=== PATIENT | male | born 1935 | race Caucasian/White ===

== ENCOUNTER 2023-12-30 11:32 | Inpatient (IN) ==
[2023-12-30 12:49] LABS: Basophils # (auto) 0.09 K/uL (0.00-0.20); Basophils % (auto) 1.1 %; Eosinophils # (auto) 0.07 K/uL (0.00-0.50); Eosinophils % (auto) 0.9 %; Hematocrit (blood only) 28.8 % (42.0-52.0); Hemoglobin 9.7 g/dl (14.0-18.0); Immature Granulocytes # (auto) 0.05 K/uL (0.01-0.20); Immature Granulocytes % (auto) 0.6 %; Lymphocytes % (auto) 13.4 %; Mean Corpuscular Hemoglobin 30.4 pg (25.0-34.0); Mean Corpuscular Hgb Conc 33.7 g/dL (32.0-36.0); Mean Corpuscular Volume 90.3 fL (80.0-100.0); Mean Platelet Volume 11.1 fL (9.4-12.4); Monocytes # (auto) 0.56 K/uL (0.11-0.59); Monocytes % (auto) 6.8 %; Neutrophils # (auto) 6.32 K/uL (1.40-6.50); Neutrophils % (auto) 77.2 %; Platelet Count 285 K/uL (130-400); RDW Coefficient of Variation 14.3 % (11.5-14.5); RDW Standard Deviation 47.2 fL (36.4-46.3); Red Blood Count 3.19 M/uL (4.70-6.10); White Blood Count 8.19 K/ul (4.8-10.8)
[2023-12-30 13:04] LABS: Alanine Aminotransferase 22 U/L (7-52); Albumin Globulin Ratio 1.7 (0.9-2); Albumin Level 3.8 gm/dl (3.4-5.0); Alkaline Phosphatase 89 U/L (34-104); Anion Gap 7 (3-11); Aspartate Aminotransferase 24 U/L (13-39); BUN Creatinine Ratio 17.4 (10-20); Bilirubin,Total 0.7 mg/dl (0.2-1.0); Blood Urea Nitrogen 30 mg/dl (6-23); Calcium 9.7 mg/dl (8.6-10.3); Carbon Dioxide 30 mmol/L (21-32); Chloride 98 mmol/L (98-107); Est GFR (Non-African American) 34.5 ml/min; Globulin 2.3 gm/dl (2.5-4.0); Glucose 375 mg/dl (70-99(Fasting)); Potassium 4.2 mmol/L (3.5-5.1); Sodium 135 mmol/L (136-145); Total Protein 6.1 gm/dl (6.0-8.3)
--- NOTE | 2023-12-30 13:05 | XRay Report ---
XR chest 1V not portable HISTORY: Chest pain, nonspecific COMPARISON: Chest and abdominal series 07/23/2018. FINDINGS: There are low lung volumes. No pneumothorax. No pleural effusions. No focal lung consolidat ions to suggest a pneumonia. No evidence for pulmonary edema. Old, healed right-sided rib fractures. Degenerative changes within the shoulders. A cardiac valve prosthesis is noted. Calcified right hilar lymph nodes and a right lower lobe calcified granuloma. Suture material noted within the right hilum . IMPRESSION: No acute process. ACT 112: Negative or not required by law. Electronically signed by: Fede Pablo M.D. 12/30/2023 1:03 PM
[2023-12-30 13:08] LABS: Partial Thromboplastin Ratio 0.9; Partial Thromboplastin Time 24 Seconds (21-31); Prothrombin Time 11.2 Seconds (9.0-12.0)
[2023-12-30 13:11] LABS: Troponin I High Sensitivity 127.5 pg/ml (0-20)
--- NOTE | 2023-12-30 14:04 | Emergency Department Note ---
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 Patient is with his who states that over the past few weeks he has had recurrent nosebleeds up to 20+ over the past few days. Recently had a valve replacement as well as multiple stents in May is on Eliquis and this. Overall he has been doing well until recently where he has been feeling extremely fatigued, somewhat short of breath especially with exertion. Notes no chest pain. No current orthopnea but is weak with exertion ROS: See above HPI for pertinent positives & negatives. A total of [10] systems reviewed and were otherwise negative. PAST MEDICAL HISTORY: [See Below] PAST SURGICAL HISTORY: [See Below] FAMILY HISTORY: [See Below] SOCIAL HISTORY: [See Below] HOME MEDICATIONS: [See Below] ALLERGIES: [See Below] VITALS: See Below PHYSICAL EXAMINATION: General: resting comfortably in no acute distress, pale Head: Normocephalic and atraumatic Eyes: Normal inspection, extraocular muscles intact Ear, nose, throat: Normal external exam Neck: Normal range of motion Respiratory: lungs clear to auscultation bilaterally Cardiovascular: Regular rate/rhythm, no murmur GI: soft, nontender, no guarding or rebound Extremities: nontender, moves all extremities Neuro: The patient awake and alert, appropriately conversive, no focal deficits, symmetric faces Skin: Warm, dry, and intact MEDICAL DECISION MAKING: This is presenting for concerns of low hemoglobin. Patient blood work was done at triage as well as EKG and chest x-ray -Chest Xray independently interpreted by me showing no pneumothorax, focal opacity, or pleural effusions. -ECG independently interpreted by me with [normal sinus rhythm], rate of 76, left axis deviation, [normal [place]], [normal QRS], [normal QTc], [no ST segment elevations consistent with STEMI criteria], T wave inversions in lead II and aVL -Patient blood was reviewed showing hemoglobin of 9.7. His troponin is significant elevated at 127. He continues to deny current chest pain -Chest Xray independently interpreted by me showing no pneumothorax, focal opacity, or pleural effusions. Differential diagnosis: [] ER treatment provided: See below Diagnostics interpreted by me: ECG: [none] Cardiac Monitoring: An order was placed for continuous cardiac monitoring. The monitor shows a rate of [] with [] rhythm. 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 Status post appendectomy Status post prostatectomy Family History Mother Dementia Father Heart disease Social History Smoking Status: Former smoker Second Hand Exposure: No; Do You Dip or Chew Tobacco: No; Hx Alcohol Use: No Hx Substance Use: No Preferred Language: Montenegrin Communication Ability: Effective Director Of Education And Training Required: No Beliefs That Will Affect Care: None marital status: Current Living Situation: Spouse current occupational status: retired Feels Safe at Home: Yes Assistive Devices: Glasses Allergies Allergies Allergy/AdvReac Type Severity Reaction Status Date / Time No Known Allergies Allergy Verified 12/30/23 14:11 Home Meds Home Medications Medication Instructions Recorded Confirmed amlodipine 10 mg tablet 10 mg PO DAILY 07/23/18 12/30/23 cholecalciferol (vitamin D3) 25 1,000 unit PO DAILY 07/23/18 12/30/23 mcg (1,000 unit) capsule (Vitamin D3) atorvastatin 40 mg tablet 40 mg PO QPM 12/30/23 12/30/23 clopidogrel 75 mg tablet 75 mg PO QAM 12/30/23 12/30/23 dulaglutide 4.5 mg/0.5 mL 4.5 mg subcut WK 12/30/23 12/30/23 subcutaneous pen injector (Trulicity) hydrochlorothiazide 25 mg tablet 25 mg PO DAILY 12/30/23 12/30/23 insulin glargine 100 unit/mL (3 20 unit subcut DAILY 12/30/23 12/30/23 mL) subcutaneous pen (Lantus Solostar U-100 Insulin) levothyroxine 88 mcg tablet 88 mcg PO DAILYBB 12/30/23 12/30/23 (Synthroid) Previous Rx's Medication Instructions Recorded mupirocin 2 % topical ointment 1 applic topical BID #15 grams 12/31/23 oxymetazoline 0.05 % nasal mist 2 spray intranasal BID 3 days #15 12/31/23 (Afrin (oxymetazoline)) mL sodium chloride 0.65 % nasal spray 1 spray intranasal QID PRN dry 12/31/23 aerosol (Saline Nasal) nasal passages #44 mL Results & Data (ED) Vital Signs Vital Signs - 24 hr 12/30/23 11:57 12/30/23 13:24 12/30/23 13:29 Temperature 36.9 C Temperature Source Temporal Artery Scan Pulse Rate 81 66 Pulse Rate [Apical] 63 Pulse Rate from SpO2 Sensor 62 Respiratory Rate 18 28 H 30 H Respiratory Effort / Characteristics Non-Labored Spontaneous Short of Breath SOB on Exertion Respiratory Depth Normal Normal Respiratory Pattern Regular Rapid/Shallow Blood Pressure 104/63 Blood Pressure [Right Arm] 152/75 H Blood Pressure Mean 76 Blood Pressure Mean [Right Arm] 100 Blood Pressure Position Sitting Blood Pressure Position [Right Arm] Sitting Pulse Oximetry 100 95 100 Oxygen Delivery Method Room Air Room Air Oxygen Flow Rate Sepsis Recent Fever Within 48 Hours No Sepsis New/Unexplained Change in Mental Status N/A Sepsis Action Taken by Nursing No Action Required 12/30/23 13:29 12/30/23 13:30 12/30/23 13:41 Temperature Temperature Source Pulse Rate 63 60 Pulse Rate [Apical] Pulse Rate from SpO2 Sensor 61 Respiratory Rate 30 H 23 Respiratory Effort / Characteristics Respiratory Depth Respiratory Pattern Blood Pressure Blood Pressure [Right Arm] Blood Pressure Mean Blood Pressure Mean [Right Arm] Blood Pressure Position Blood Pressure Position [Right Arm] Pulse Oximetry 100 100 Oxygen Delivery Method Room Air Nasal Cannula Oxygen Flow Rate 2 Sepsis Recent Fever Within 48 Hours Sepsis New/Unexplained Change in Mental Status Sepsis Action Taken by Nursing 12/30/23 13:41 12/30/23 14:00 12/30/23 14:30 Temperature Temperature Source Pulse Rate 64 60 61 Pulse Rate [Apical] Pulse Rate from SpO2 Sensor 60 60 Respiratory Rate 21 24 Respiratory Effort / Characteristics Respiratory Depth Respiratory Pattern Blood Pressure Blood Pressure [Right Arm] Blood Pressure Mean Blood Pressure Mean [Right Arm] Blood Pressure Position Blood Pressure Position [Right Arm] Pulse Oximetry 100 100 Oxygen Delivery Method Oxygen Flow Rate Sepsis Recent Fever Within 48 Hours Sepsis New/Unexplained Change in Mental Status Sepsis Action Taken by Nursing 12/30/23 15:00 12/30/23 15:30 12/30/23 16:00 Temperature Temperature Source Pulse Rate 76 67 73 Pulse Rate [Apical] Pulse Rate from SpO2 Sensor 72 63 Respiratory Rate 20 14 19 Respiratory Effort / Characteristics Respiratory Depth Respiratory Pattern Blood Pressure Blood Pressure [Right Arm] Blood Pressure Mean Blood Pressure Mean [Right Arm] Blood Pressure Position Blood Pressure Position [Right Arm] Pulse Oximetry 100 97 Oxygen Delivery Method Room Air Oxygen Flow Rate Sepsis Recent Fever Within 48 Hours Sepsis New/Unexplained Change in Mental Status Sepsis Action Taken by Nursing Laboratory Data 12/31/23 02:07 12/31/23 02:07 Lab Results 12/30/23 12/30/23 12/30/23 Range/Units 12:17 14:06 14:13 WBC 8.19 (4.8-10.8) K/ul RBC 3.19 L (4.70-6.10) M/uL Hgb 9.7 L (14.0-18.0) g/dl Hct 28.8 L (42.0-52.0) % MCV 90.3 (80.0-100.0) fL MCH 30.4 (25.0-34.0) pg MCHC 33.7 (32.0-36.0) g/dL RDW Std Deviation 47.2 H (36.4-46.3) fL RDW Coeff of Luis 14.3 (11.5-14.5) % Plt Count 285 (130-400) K/uL MPV 11.1 (9.4-12.4) fL Immature Gran % (Auto) 0.6 % Neut % (Auto) 77.2 % Lymph % (Auto) 13.4 % [place] % (Auto) 6.8 % Eos % (Auto) 0.9 % Baso % (Auto) 1.1 % Neut # (Auto) 6.32 (1.40-6.50) K/uL Lymph # (Auto) 1.10 L (1.20-3.40) K/uL [place] # (Auto) 0.56 (0.11-0.59) K/uL Eos # (Auto) 0.07 (0.00-0.50) K/uL Baso # (Auto) 0.09 (0.00-0.20) K/uL Immature Gran # (Auto) 0.05 (0.01-0.20) K/uL PT 11.2 (9.0-12.0) Seconds INR 1.0 (0.9-1.1) APTT 24 (21-31) Seconds PTT Ratio 0.9 Sodium 135 L (136-145) mmol/L Potassium 4.2 (3.5-5.1) mmol/L Chloride 98 (98-107) mmol/L Carbon Dioxide 30 (21-32) mmol/L Anion Gap 7 (3-11) BUN 30 H (6-23) mg/dl Creatinine 1.72 H (0.6-1.4) mg/dl Est Cr Clr Drug Dosing Not Reportable Est GFR ( Amer) 40.0 ml/min Est GFR (Non-Af Amer) 34.5 ml/min BUN/Creatinine Ratio 17.4 (10-20) Glucose 375 H* (70-99(Fasting)) mg/dl POC Glucose 432 H* (70-99) mg/dl Calcium 9.7 (8.6-10.3) mg/dl Total Bilirubin 0.7 (0.2-1.0) mg/dl AST 24 (13-39) U/L ALT 22 (7-52) U/L Alkaline Phosphatase 89 (34-104) U/L Troponin I High Sens 127.5 H* 101.3 H* D (0-20) pg/ml B-Natriuretic Peptide 120 H (0-100) pg/ml Total Protein 6.1 (6.0-8.3) gm/dl Albumin 3.8 (3.4-5.0) gm/dl Globulin 2.3 L (2.5-4.0) gm/dl Albumin/Globulin Ratio 1.7 (0.9-2) Urine Color Urine Appearance (Clear) Urine pH (4.5-7.5) Ur Specific [place] (1.000-1.030) Urine Protein (Negative) Urine Glucose (UA) (Negative) Urine Ketones (Negative) Urine Blood (Negative) Urine Nitrite (Negative) Urine Bilirubin (Negative) Urine Urobilinogen (Negative) Ur Leukocyte Esterase (Negative) Urine WBC (Auto) (0-5) /hpf Urine RBC (Auto) (0-2) /hpf U Hyaline Cast (Auto) (0-2) /lpf U Epithel Cells (Auto) (0-2) /hpf Urine Bacteria (Auto) (None Seen) 12/30/23 12/30/23 Range/Units 14:14 15:14 WBC (4.8-10.8) K/ul RBC (4.70-6.10) M/uL Hgb (14.0-18.0) g/dl Hct (42.0-52.0) % MCV (80.0-100.0) fL MCH (25.0-34.0) pg MCHC (32.0-36.0) g/dL RDW Std Deviation (36.4-46.3) fL RDW Coeff of Luis (11.5-14.5) % Plt Count (130-400) K/uL MPV (9.4-12.4) fL Immature Gran % (Auto) % Neut % (Auto) % Lymph % (Auto) % [place] % (Auto) % Eos % (Auto) % Baso % (Auto) % Neut # (Auto) (1.40-6.50) K/uL Lymph # (Auto) (1.20-3.40) K/uL [place] # (Auto) (0.11-0.59) K/uL Eos # (Auto) (0.00-0.50) K/uL Baso # (Auto) (0.00-0.20) K/uL Immature Gran # (Auto) (0.01-0.20) K/uL PT (9.0-12.0) Seconds INR (0.9-1.1) APTT (21-31) Seconds PTT Ratio Sodium (136-145) mmol/L Potassium (3.5-5.1) mmol/L Chloride (98-107) mmol/L Carbon Dioxide (21-32) mmol/L Anion Gap (3-11) BUN (6-23) mg/dl Creatinine (0.6-1.4) mg/dl Est Cr Clr Drug Dosing Est GFR ( Amer) ml/min Est GFR (Non-Af Amer) ml/min BUN/Creatinine Ratio (10-20) Glucose (70-99(Fasting)) mg/dl POC Glucose 433 H* (70-99) mg/dl Calcium (8.6-10.3) mg/dl Total Bilirubin (0.2-1.0) mg/dl AST (13-39) U/L ALT (7-52) U/L Alkaline Phosphatase (34-104) U/L Troponin I High Sens (0-20) pg/ml B-Natriuretic Peptide (0-100) pg/ml Total Protein (6.0-8.3) gm/dl Albumin (3.4-5.0) gm/dl Globulin (2.5-4.0) gm/dl Albumin/Globulin Ratio (0.9-2) Urine Color Yellow Urine Appearance Cloudy A (Clear) Urine pH 7.0 (4.5-7.5) Ur Specific [place] 1.019 (1.000-1.030) Urine Protein Trace H (Negative) Urine Glucose (UA) 3+ H (Negative) Urine Ketones Negative (Negative) Urine Blood Negative (Negative) Urine Nitrite Negative (Negative) Urine Bilirubin Negative (Negative) Urine Urobilinogen Negative (Negative) Ur Leukocyte Esterase Negative (Negative) Urine WBC (Auto) 0-5 (0-5) /hpf Urine RBC (Auto) 0-2 (0-2) /hpf U Hyaline Cast (Auto) 3-5 H (0-2) /lpf U Epithel Cells (Auto) >20 H (0-2) /hpf Urine Bacteria (Auto) None Seen (None Seen) Administered Medications Discontinued Medications Amlodipine Besylate (Amlodipine Besylate 5 Mg Tab) 10 mg PO DAILY KENYATTA Stop: 01/30/24 08:59 Last Admin: 12/31/23 09:13 Dose: 10 mg Documented By: MES Atorvastatin Calcium (Atorvastatin 40 Mg Tab) 40 mg PO QPM KENYATTA Stop: 01/29/24 20:59 Last Admin: 12/30/23 23:21 Dose: 40 mg Documented By: CR Clopidogrel Bisulfate (Clopidogrel Bisulfate 75 Mg Tab) 75 mg PO QAM KENYATTA Stop: 01/30/24 11:14 Last Admin: 12/31/23 11:16 Dose: 75 mg Documented By: LIZ Hydrochlorothiazide (Hydrochlorothiazide 25 Mg Tab) 25 mg PO DAILY KENYATTA Stop: 01/30/24 08:59 Last Admin: 12/31/23 09:13 Dose: 25 mg Documented By: LIZ Insulin Aspart (Insulin Aspart Per Unit Charge) 5 units SC NOW STA Stop: 12/30/23 18:27 Last Admin: 12/30/23 18:33 Dose: 5 units Documented By: ANTHONY Co-signed By: KIMBERLEY Insulin Aspart (Insulin Aspart Per Unit Charge) 0 units SC ACHS [facility] Stop: 01/29/24 18:38 Last Admin: 12/31/23 13:23 Dose: 7 units Documented By: LIZ Co-signed By: ANTHONY Admin: 12/31/23 09:47 Dose: 1 units Documented By: LIZ Co-signed By: LOLLY Admin: 12/30/23 21:53 Dose: 1 units Documented By: GIANA Co-signed By: ANTHONY Admin: 12/30/23 19:50 Dose: 11 units Documented By: GIANA Co-signed By: ANTHONY Insulin Glargine (Lantus Per Unit Charge) 20 units SQ DAILY KENYATTA Stop: 01/30/24 08:59 Last Admin: 12/31/23 09:48 Dose: 20 units Documented By: LIZ Co-signed By: LOLLY Levothyroxine Sodium (Levothyroxine Sodium 88 Mcg Tablet) 88 mcg PO DAILYBB [facility] Stop: 01/30/24 06:29 Last Admin: 12/31/23 06:26 Dose: 88 mcg Documented By: GIANA Melatonin (Melatonin 3 Mg Tab) 3 mg PO HS PRN PRN Reason: Sleep Stop: 01/29/24 23:05 Last Admin: 12/31/23 03:04 Dose: 3 mg Documented By: GIANA Oxymetazoline HCl (Oxymetazoline 0.05% 30 Ml Btl) 1 sprays NA NOW ONE Stop: 12/30/23 15:32 Last Admin: 12/30/23 16:12 Dose: 1 sprays Documented By: ANTHONY Potassium Chloride (Potassium Chloride Crtab 20 Meq Tabcr) 40 meq PO NOW STA Stop: 12/31/23 08:05 Last Admin: 12/31/23 09:13 Dose: 40 meq Documented By: LIZ Vitamin D (Cholecalciferol 25 Mcg (1000 Units) Tab) 25 mcg PO DAILY KENYATTA Stop: 01/30/24 08:59 Last Admin: 12/31/23 09:14 Dose: 25 mcg Documented By: LIZ Imaging Data Radiologist's Impression: Chest X-Ray 12/30/23 11:59 XR chest 1V not portable HISTORY: Chest pain, nonspecific COMPARISON: Chest and abdominal series 07/23/2018. FINDINGS: There are low lung volumes. No pneumothorax. No pleural effusions. No focal lung consolidations to suggest a pneumonia. No evidence for pulmonary edema. Old, healed right-sided rib fractures. Degenerative changes within the shoulders. A cardiac valve prosthesis is noted. Calcified right hilar lymph nodes and a right lower lobe calcified granuloma. Suture material noted within the right hilum. IMPRESSION: No acute process. ACT 112: Negative or not required by law. Electronically signed by: Fede Pablo M.D. 12/30/2023 1:03 PM Discharge Plan Visit Data Chief Complaint: Nose Bleed (Major) Stated Complaint: TROUBLE BREATHING,NOSE BLEEDS ED Provider: Agustin Horn Patient Disposition: Admitted As Inpatient Condition: Fair Discharge Instructions Interventions: ED Discharge Assessment Last Done: 12/30/23 17:41
--- NOTE | 2023-12-30 14:19 | History & Physical Report ---
Date of Service December 30, 2023 Assessment & Plan (1) Anemia: (2) Hypertension: (3) Hypothyroidism: (4) Diabetes mellitus type 2, controlled: (5) Dyslipidemia: (6) CKD (chronic kidney disease), stage III: (7) Cerebrovascular disease: (8) S/P TAVR (transcatheter aortic valve replacement): Plan: 88 yo M with multiple complex comorbidities listed below, epistaxis on anticoagulation and new elevated troponin and dyspnea on exertion Anemia, acute blood loss due to epistaxis - Pt is hgb of 9 today, previously on 12/02/23 hgb was 13.6 - Will hold eliquis and plavix - last took these meds this morning. Discussed with cards - Blood consented personally - if in case needs this overnight. Currently no need for transfusion. - ENT consult for epistasix, had appt but was at end of January - appreciate recs - Afrin prn S/p TAVR - #23mm Lepe Ned S3 Ultra valve), 06/16/[address] Rojas at [facility] [place], New LBBB at that time -- again seen on EKG today. - At that time he did wear a Zio AT without Salomon arrhythmias or pauses. However, atrial fibrillation was seen. Started on Eliquis but AV patience blocking agents avoided due to slow resting heart rates. Evaluated by Dr. Rios on 08/11/2023--no pacemaker was recommended at that time and patient status remained stable in September follow-up. - Last echo from 08/2023 showing EF normal, TAVR gradients stable, mild paravalvular aortic valve prosthesis regurg present - Follows with [facility] as outpatient Dr. Hoff - Outpatient cardiology referred pt here for further eval due to nose bleeds and abdnomal EKG today concerning with new T-wave inversions in leads 1 and aVL. - Trop 127 --> 101.3, trend x 1 more set - Also noted is pt appears dyspneic on exertion. Sats of mid 90s on RA after walking to the bathroom. We can maintain oxygen with humidification as needed for exertional dyspnea. - Cardiology consulted - appreciate recs Complex CAD - Prox-midRCA with heavily calcified 95% stenosis status post rotational atherectomy+ PCI with x3 overlapping DELORES from mid RCA to ostium-- (2.0ajg44ds, 2.1dbj95cn and 3.0mrh57zq Synergy DELORES), per pre-TAVR cath 05/22/2023 - Holding plavix - Continue statin therapy Peripheral arterial disease, 80% RFA stenosis per cardiac catheterization 05/22/2023 - S/p shock wave lithotripsy of the left common iliac and left external iliac artery, 06/16/2023 - Cont statin therapy Paroxysmal atrial fibrillation, diagnosed 06/28/2023 per Zio monitor. - [id number] score of 4, on reduced dose Eliquis due to age and renal function - Holding eliquis as above Hypertension Dyslipidemia - Home regimen:amlodipine, HCTZ DM II - ISS with accuchecks achs - Last A1C 8.4 on 12/02/23 -- will recheck with am labs since off Metformin mid November with uptrending glucoses. Was taken off metformin due to weight loss - consider ISS at home if not a candidate for metformin upon discharge. Hold Trulicity for now, last dose was Thursday. - Hyperglycemia with glucose of 375 upon admission , will trend Hypothyroidism - Cont levothyroxine CKD stage III - Baseline Cr 1.4-1.5, upon admission is 1.72, BUN 30 - May likely be due to demand ischemia, volume depletion as above DVT ppx: teds, scds Lines: 1 PIV FEN/GI: Allow DM heart healthy diet for now CODE: DNR/DNI Dispo: From home, likely to remain in the hospital x 1-2 days A total of 85 minutes were spent with greater than 50% of that time face to face with the patient, personally reviewing all current laboratories, imaging studies, past medication reconciliation, outpatient chart review, and discussion with specialists to collaborate care for the patient with attending. Please see attending documentation for corrections and/or additions. History of Present Illness Chief Complaint: nose bleed Primary Care Provider: Andrea Winters MD This is a n 88 yo M with PMHX of CAD, s/p TAVR in 06/16/23, PAD, paroxysmal atrial fibrillation on eliquis, HTN, HLD, who presents from cardiology office this morning after being found to have EKG changes in Lead 1 and AVL with T wave changes. Pt has been having nose bleeds since December 12, very heavy at times and can last for about 30 minutes. He hasn't missed any of his anticoagulation medications - is on both plavix and eliquis (reduced dose for renal implications), and last dose of these meds was this morning. His last nose bleed was earlier today which require him holding and pinching his nose for abot 30 minutes again. No bleeding since arrival to the ER. PT denies any chest pain, heaviness or complaints. His at bedside is worried, and provides contradictory information compared to the patient, who may tend to downplay his symptoms. She states he has been having shortness of breath on exertion, needing to sit down and catch his breath after attempting to get dressed in the last 3 days, as well as looking "wobbly" with ambulation. Prior to this he has no issues with needing ambulatory device or issues with fatigue on exertional activites. Denies any acute falls or injuries to self. notes glucose has been elevated over the past week or so. He was recently taken off metformin completely due to weight loss around middle of November 2023, and instead was kept on Trulicity weekly(Tuesdays) and lantus 20 U QAM. His appetite has not changed. concerned about upward trending glucose and does not have appt until the end of next Thursday scheduled. Allergies Allergy/AdvReac Type Severity Reaction Status Date / Time No Known Allergies Allergy Verified 12/30/23 14:11 Home Medications Medication Instructions Recorded Confirmed Type amlodipine 10 mg tablet 10 mg PO DAILY 07/23/18 12/30/23 History cholecalciferol (vitamin D3) 25 1,000 unit PO DAILY 07/23/18 12/30/23 History mcg (1,000 unit) capsule (Vitamin D3) apixaban 2.5 mg tablet (Eliquis) 2.5 mg PO BID 12/30/23 12/30/23 History atorvastatin 40 mg tablet 40 mg PO QPM 12/30/23 12/30/23 History clopidogrel 75 mg tablet 75 mg PO QAM 12/30/23 12/30/23 History dulaglutide 4.5 mg/0.5 mL 4.5 mg subcut WK 12/30/23 12/30/23 History subcutaneous pen injector (Trulicity) hydrochlorothiazide 25 mg tablet 25 mg PO DAILY 12/30/23 12/30/23 History insulin glargine 100 unit/mL (3 20 unit subcut DAILY 12/30/23 12/30/23 History mL) subcutaneous pen (Lantus Solostar U-100 Insulin) levothyroxine 88 mcg tablet 88 mcg PO DAILYBB 12/30/23 12/30/23 History (Synthroid) Past Med/Surg History Medical History Diabetes mellitus type 2 with complications Acute kidney injury Cerebrovascular disease history TIA CKD (chronic kidney disease), stage III Vitamin D deficiency Dyslipidemia Diverticulosis History of colonic polyps History of prostate cancer Hypertension Hypothyroidism Diabetes mellitus type 2, controlled Stage III chronic kidney disease Diabetes Surgical History 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 Status post appendectomy Status post prostatectomy Family History Mother Dementia Father Heart disease Social History Smoking Status: Former smoker Second Hand Exposure: No; Do You Dip or Chew Tobacco: No; Hx Alcohol Use: No Hx Substance Use: No Preferred Language: Swedish Communication Ability: Effective Commercial Food Instructor Required: No Beliefs That Will Affect Care: Lutheran Lutheran Beliefs: Orthodoxy marital status: Current Living Situation: Spouse current occupational status: retired Feels Safe at Home: Yes Assistive Devices: Glasses Review of Systems Review of Systems: Constitutional: No fever, sweats or chills Eyes: No diplopia, no worsening or blurred vision ENT: normal hearing, no trouble swallowing, + epistaxis as per HPI Respiratory: No cough, sputum, +dyspnea on exertion as per HPI Cardiovascular: No chest pain, tightness or palpitations Abdomen: No pain, nausea, vomiting, diarrhea or constipation Musculoskeletal: No joint pain, calf pain, swelling Neurologic: No weakness, numbness/tingling, or balance problems Psychiatric: No anxiety or depression Skin: No rash or itch Physical Exam Physical Exam: General: awake, alert, no apparent distress, elderly white male, BMI of 23.3 Head: Normocephalic, atraumatic ENT: PERRL, EOMI, no pharyngeal exudate, mucous membranes moist Chest: Clear to auscultation, on room air, no adventitious breath sounds Cardiac: Regular rate and rhythm, no murmur, no JVD, normal peripheral pulses, good capillary refill Abdominal: NABS x 4 quadrants, soft, nondistended, nontender to palpation, no rebound or guarding Extremities: Normal inspection, no peripheral edema or erythema, calfs nontender to palpation Psych: Normal mood and affect Neuro: AAO x 3, strength intact bilaterally and rated 5/5, no motor deficits, speech is clear, no peripheral sensory deficits Results & Data Results & Data Vital Signs (Past 12 Hours) Vital Signs Temp Pulse Pulse Resp BP BP Pulse Ox 12/30/23 13:41 64 12/30/23 13:41 12/30/23 13:29 63 30 H 100 12/30/23 13:29 63 30 H 152/75 H 100 12/30/23 11:57 36.9 C 81 18 104/63 100 O2 Del Method O2 Flow Rate 12/30/23 13:41 12/30/23 13:41 Nasal Cannula 2 12/30/23 13:29 Room Air 12/30/23 13:29 Room Air 12/30/23 11:57 Room Air Laboratory Results 12/30/23 12/30/23 12/30/23 14:14 14:13 12:17 WBC 8.19 RBC 3.19 L Hgb 9.7 L Hct 28.8 L MCV 90.3 MCH 30.4 MCHC 33.7 RDW Std Deviation 47.2 H RDW Coeff of Luis 14.3 Plt Count 285 MPV 11.1 Immature Gran % (Auto) 0.6 Neut % (Auto) 77.2 Lymph % (Auto) 13.4 [place] % (Auto) 6.8 Eos % (Auto) 0.9 Baso % (Auto) 1.1 Neut # (Auto) 6.32 Lymph # (Auto) 1.10 L [place] # (Auto) 0.56 Eos # (Auto) 0.07 Baso # (Auto) 0.09 Immature Gran # (Auto) 0.05 PT 11.2 INR 1.0 APTT 24 PTT Ratio 0.9 Sodium 135 L Potassium 4.2 Chloride 98 Carbon Dioxide 30 Anion Gap 7 BUN 30 H Creatinine 1.72 H Est Cr Clr Drug Dosing Not Reportable Est GFR ( Amer) 40.0 Est GFR (Non-Af Amer) 34.5 BUN/Creatinine Ratio 17.4 Glucose 375 H* POC Glucose 433 H* 432 H* Calcium 9.7 Total Bilirubin 0.7 AST 24 ALT 22 Alkaline Phosphatase 89 Troponin I High Sens 127.5 H* Total Protein 6.1 Albumin 3.8 Globulin 2.3 L Albumin/Globulin Ratio 1.7 Diagnostic Findings Chest X-Ray 12/30/23 11:59 XR chest 1V not portable HISTORY: Chest pain, nonspecific COMPARISON: Chest and abdominal series 07/23/2018. FINDINGS: There are low lung volumes. No pneumothorax. No pleural effusions. No focal lung consolidations to suggest a pneumonia. No evidence for pulmonary edema. Old, healed right-sided rib fractures. Degenerative changes within the shoulders. A cardiac valve prosthesis is noted. Calcified right hilar lymph nodes and a right lower lobe calcified granuloma. Suture material noted within the right hilum. IMPRESSION: No acute process. ACT 112: Negative or not required by law. Electronically signed by: Fede Pablo M.D. 12/30/2023 1:03 PM ECG Additional Comments: Reviewed showing AVL and Lead [address] wave inversions Code Status & VTE Plan Code Status DNR/DNI - discussed with pt at bedside Supervising Physician Co-Signing Physician Notes Pt seen and examined by me, care coordinated w/ Kannan Elizondo PA-C, pls refer to her note above for further detail. Pt is a n 88 yo M w. h/o CAD, s/p TAVR in 06/16/23, PAD, paroxysmal atrial fibrillation on eliquis, HTN, HLD, who presents from cardiology office this morning after being found to have EKG changes in Lead 1 and AVL with T wave changes and reported episodes of significant epistaxis. Pt is on plavix and eliquis (reduced dose for renal implications), and last dose of these meds was this morning. Pt denies any chest pain, or shortness of breath but per he has been short of breath for several days, and very weak. Pt is currently laying in bed in NAD, he is awake but does not answer many questions, mostly his provides the history. Lungs are clear to auscultation, heart sounds regular, +soft syst. murmur, abdomen soft, nontender, no LE edema, pt is moving extremities. In the ER his Hgb is found low at 9.7, Troponin elevated at 127. Discussed with cardiology and holding eliquis and plavix for now. ENT was also consulted as per bleeding only occurs from left nostril. Will cont. to closely monitor. Monitor H&H. MD Philip
--- NOTE | 2023-12-30 15:36 | Cardiology Consultation ---
Date of Consultation December 30, 2023 Assessment & Plan (1) Epistaxis: (2) Anemia: (3) Elevated troponin I level: (4) CAD (coronary artery disease), rampart coronary artery: (5) S/P right coronary artery (RCA) stent placement: (6) S/P TAVR (transcatheter aortic valve replacement): (7) CKD (chronic kidney disease), stage III: Plan 88-year-old male referred to the ER due to recent epistaxis and anemia in setting of chronic anticoagulation/antiplatelet therapy. Mildly elevated high- sensitivity troponin without signs/symptoms of acute coronary syndrome. ECG with left bundle branch block since TAVR 05/2023. Current ECG demonstrating incomplete left bundle branch block. Elevated troponin most likely due to demand ischemia/blood loss anemia. Recent complex PCI performed May 2023. Approximately 7 months since intervention. Recommend hold clopidogrel and Eliquis at least temporarily. ENT evaluation pending at this time. With history of complex CAD/PVD/complex intervention 05/2023, recommend resume single antiplatelet therapy with clopidogrel when deemed safe by otolaryngology. Continue other cardiovascular medications including atorvastatin and amlodipine. Cautiously continue hydrochlorothiazide in the setting of CKD/mild hyponatremia. History of Present Illness Reason for Consultation: ECG changes, elevated troponin Requesting Physician: Marce Elizondo PA-C Attending Physician: Dr. Germain Palacios History of Present Illness 88-year-old male referred to the emergency department today from the cardiology clinic due to epistaxis and concerns regarding anemia. Patient is a poor historian due to underlying dementia. Most history provided by his at bedside. She reports nearly 20 episodes of epistaxis beginning 12/15/2023. Episodes lasting up to 30 minutes. He is chronically anticoagulated with low- dose Eliquis as well as treated with antiplatelet therapy, clopidogrel. No bleeding over the past 48 hours. Patient denies chest pain or unusual shortness of breath. reports dyspnea over the past 5-7 days. No orthopnea, PND, or lower extremity edema. Denies palpitations, lightheadedness, dizziness, syncope, or near syncope. Complex cardiac history copied from the [facility] medical record: 1. Severe aortic stenosis s/p TAVR (# 23 mm Lepe Ned S3 Ultra valve), 06/16/[address] Rojas at [facility] [place] 1. New LBBB 2. Complex CAD, Prox-midRCA with heavily calcified 95% stenosis status post rotational atherectomy+ PCI with x3 overlapping DELORES from mid RCA to ostium-- (2.5vby03hn, 2.3prv22cs and 3.1imp61bz Synergy DELORES), per pre-TAVR cath 05/22/2023. 3. Peripheral arterial disease, 80% RFA stenosis per cardiac catheterization 05/22/2023 - S/p shock wave lithotripsy of the left common iliac and left external iliac artery, 06/16/2023 4. Paroxysmal atrial fibrillation, diagnosed 06/28/2023 per Zio monitor. - [id number] score of 4, on reduced dose Eliquis due to age and renal function 5. Hypertension 6. Dyslipidemia 7. Type 2 Diabetes 8. Hypothyroidism Allergies Allergy/AdvReac Type Severity Reaction Status Date / Time No Known Allergies Allergy Verified 12/30/23 14:11 Home Medications Medication Instructions Recorded Confirmed Type amlodipine 10 mg tablet 10 mg PO DAILY 07/23/18 12/30/23 History cholecalciferol (vitamin D3) 25 1,000 unit PO DAILY 07/23/18 12/30/23 History mcg (1,000 unit) capsule (Vitamin D3) apixaban 2.5 mg tablet (Eliquis) 2.5 mg PO BID 12/30/23 12/30/23 History atorvastatin 40 mg tablet 40 mg PO QPM 12/30/23 12/30/23 History clopidogrel 75 mg tablet 75 mg PO QAM 12/30/23 12/30/23 History dulaglutide 4.5 mg/0.5 mL 4.5 mg subcut WK 12/30/23 12/30/23 History subcutaneous pen injector (Trulicity) hydrochlorothiazide 25 mg tablet 25 mg PO DAILY 12/30/23 12/30/23 History insulin glargine 100 unit/mL (3 20 unit subcut DAILY 12/30/23 12/30/23 History mL) subcutaneous pen (Lantus Solostar U-100 Insulin) levothyroxine 88 mcg tablet 88 mcg PO DAILYBB 12/30/23 12/30/23 History (Synthroid) Patient History Medical History Diabetes mellitus type 2 with complications Acute kidney injury Cerebrovascular disease history TIA CKD (chronic kidney disease), stage III Vitamin D deficiency Dyslipidemia Diverticulosis History of colonic polyps History of prostate cancer Hypertension Hypothyroidism Diabetes mellitus type 2, controlled Stage III chronic kidney disease Diabetes Surgical History 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 Status post appendectomy Status post prostatectomy Family History Mother Dementia Father Heart disease Social History Smoking Status: Former smoker Second Hand Exposure: No; Do You Dip or Chew Tobacco: No; Tobacco Cessation Education Requested by Patient: No Hx Alcohol Use: No Hx Substance Use: No Preferred Language: Azerbaijani Communication Ability: Effective Skirt Maker Required: No Beliefs That Will Affect Care: None marital status: Current Living Situation: Spouse current occupational status: retired Other Information That Helps Us Care for You: No Feels Safe at Home: Yes Safety Concerns: Feels Safe At This Time Assistive Devices: Glasses Review of Systems Review of Systems: All systems reviewed & are unremarkable except as noted in Subjective Physical Exam Constitutional: well developed and well nourished; no acute distress Respiratory: no respiratory distress, no labored breathing and no retractions Auscultation: lungs clear to auscultation bilaterally; no crackles, no rales, no rhonchi and no wheezes Cardiovascular: Rate/Rhythm: regular rate and regular rhythm Heart Sounds: normal S1, normal S2 and + murmur (2/6 systolic ejection murmur) Vessels: no JVD and no carotid bruit Gastrointestinal (Abdomen): Inspection/Auscultation: abdomen normal to inspection; abdomen not distended Percussion/Palpation: abdomen soft; abdomen nontender, no guarding and abdomen not rigid Neurologic: CN's II-XI intact bilaterally and moves all extremities Results & Data Vital Signs (Past 12 Hours) Vital Signs Temp Pulse Pulse Resp BP BP Pulse Ox 12/30/23 13:41 64 12/30/23 13:41 12/30/23 13:29 63 30 H 100 12/30/23 13:29 63 30 H 152/75 H 100 12/30/23 11:57 36.9 C 81 18 104/63 100 O2 Del Method O2 Flow Rate 12/30/23 13:41 12/30/23 13:41 Nasal Cannula 2 12/30/23 13:29 Room Air 12/30/23 13:29 Room Air 12/30/23 11:57 Room Air Laboratory Results Cardiac Enzymes 12/30/23 12/30/23 Range/Units 12:17 14:06 AST 24 (13-39) U/L Troponin I High Sens 127.5 H* 101.3 H* D (0-20) pg/ml B-Natriuretic Peptide 120 H (0-100) pg/ml Coagulation 12/30/23 12/30/23 Range/Units 12:17 14:06 PT 11.2 (9.0-12.0) Seconds APTT 24 (21-31) Seconds B-Natriuretic Peptide 120 H (0-100) pg/ml CBC 12/30/23 Range/Units 12:17 WBC 8.19 (4.8-10.8) K/ul RBC 3.19 L (4.70-6.10) M/uL Hgb 9.7 L (14.0-18.0) g/dl Hct 28.8 L (42.0-52.0) % Plt Count 285 (130-400) K/uL Neut # (Auto) 6.32 (1.40-6.50) K/uL Lymph # (Auto) 1.10 L (1.20-3.40) K/uL [place] # (Auto) 0.56 (0.11-0.59) K/uL Eos # (Auto) 0.07 (0.00-0.50) K/uL Baso # (Auto) 0.09 (0.00-0.20) K/uL Comprehensive Metabolic Panel 12/30/23 Range/Units 12:17 Sodium 135 L (136-145) mmol/L Potassium 4.2 (3.5-5.1) mmol/L Chloride 98 (98-107) mmol/L Carbon Dioxide 30 (21-32) mmol/L BUN 30 H (6-23) mg/dl Creatinine 1.72 H (0.6-1.4) mg/dl Glucose 375 H* (70-99(Fasting)) mg/dl Calcium 9.7 (8.6-10.3) mg/dl AST 24 (13-39) U/L ALT 22 (7-52) U/L Alkaline Phosphatase 89 (34-104) U/L Total Protein 6.1 (6.0-8.3) gm/dl Albumin 3.8 (3.4-5.0) gm/dl Intake and Output 12/30/23 12/30/23 12/30/23 06:59 14:59 22:59 Other: Weight 65.4 kg Weight Measurement Method Built in [facility] Patient Weight 12/31/23 06:59 Weight 65.4 kg
[2023-12-30 15:53] LABS: Appearance Urine Cloudy (Clear); Bacteria Urine Automated None Seen (None Seen); Bilirubin Urine Negative (Negative); Blood Urine Negative (Negative); Color Urine Yellow; Epithelial Cell Urine Auto >20 /hpf (0-2); Glucose Urine UA 3+ (Negative); Ketones Urine Negative (Negative); Leukocyte Esterase Urine Negative (Negative); Nitrite Urine Negative (Negative); Protein Urine Trace (Negative); RBC Urine Automated 0-2 /hpf (0-2); Specific Gravity Urine 1.019 (1.000-1.030); Urobilinogen Urine Negative (Negative); WBC Urine Automated 0-5 /hpf (0-5)
[2023-12-30] MEDS: OXYMETAZOLINE 0.05% 30 ML BTL ONE (16:12)
--- NOTE | 2023-12-30 16:16 | ENT Consultation ---
Date of Consultation December 30, 2023 Assessment & Plan (1) Epistaxis: Plan 88yM with a h/o PCI and TAVR on eliquis, plavix admitted with elevated troponin in the setting of recurrent L epistaxis. A prominent vessel of the left anterior septum was cauterized today with good hemostasis. -Mupirocin ointment BID x2 weeks -Afrin TID x3 days, then prn epistaxis -Saline spray QID -In event of further epistaxis, apply afrin and direct pressure x10-15 minutes. If this fails to resolve epistaxis, call our office or seek emergency care -F/u 2 weeks in my office for recheck - [phone] History of Present Illness History of Present Illness 88yM h/o PCI, TAVR on eliquis, plavix with recurrent L epistaxis x2-3 weeks. Patient and note multiple episodes daily lasting 30 minutes. Typically resolve with pressure. No prior nasal surgery or trauma. No previous issues with epistaxis. No current nasal regimen. No previous intervention for epistaxis. Most recent epistaxis this morning Presented to the ED today with weakness and concern for anemia. Hb 9.7, troponin elevated. Allergies Allergy/AdvReac Type Severity Reaction Status Date / Time No Known Allergies Allergy Verified 12/30/23 14:11 Home Medications Medication Instructions Recorded Confirmed Type amlodipine 10 mg tablet 10 mg PO DAILY 07/23/18 12/30/23 History cholecalciferol (vitamin D3) 25 1,000 unit PO DAILY 07/23/18 12/30/23 History mcg (1,000 unit) capsule (Vitamin D3) apixaban 2.5 mg tablet (Eliquis) 2.5 mg PO BID 12/30/23 12/30/23 History atorvastatin 40 mg tablet 40 mg PO QPM 12/30/23 12/30/23 History clopidogrel 75 mg tablet 75 mg PO QAM 12/30/23 12/30/23 History dulaglutide 4.5 mg/0.5 mL 4.5 mg subcut WK 12/30/23 12/30/23 History subcutaneous pen injector (Trulicity) hydrochlorothiazide 25 mg tablet 25 mg PO DAILY 12/30/23 12/30/23 History insulin glargine 100 unit/mL (3 20 unit subcut DAILY 12/30/23 12/30/23 History mL) subcutaneous pen (Lantus Solostar U-100 Insulin) levothyroxine 88 mcg tablet 88 mcg PO DAILYBB 12/30/23 12/30/23 History (Synthroid) Patient History Medical History Diabetes mellitus type 2 with complications Acute kidney injury Cerebrovascular disease history TIA CKD (chronic kidney disease), stage III Vitamin D deficiency Dyslipidemia Diverticulosis History of colonic polyps History of prostate cancer Hypertension Hypothyroidism Diabetes mellitus type 2, controlled Stage III chronic kidney disease Diabetes Surgical History 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 Status post appendectomy Status post prostatectomy Family History Mother Dementia Father Heart disease Social History Smoking Status: Former smoker Second Hand Exposure: No; Do You Dip or Chew Tobacco: No; Hx Alcohol Use: No Hx Substance Use: No Preferred Language: Cymraes Communication Ability: Effective Engineering Manager Electronics Required: No Beliefs That Will Affect Care: Congregational Congregational Beliefs: Worship marital status: Current Living Situation: Spouse current occupational status: retired Feels Safe at Home: Yes Assistive Devices: Glasses Review of Systems Review of Systems: A 10 point review of systems is negative except as noted above Physical Exam Physical Exam: General: No acute distress, nonlabored respirations Face: normal facial motion Eyes: Extraocular motion is intact. Normal sclera and conjunctiva Ears: AD: EAC clear. TM intact without retraction or effusion. Monomeric segment anteroinferiorly : EAC with cerumen, unable to visualize TM Nose: no external deformity, nares patent. No rhinorrhea or epistaxis. Anterior rhinoscopy with mild septal deviation to the left. Prominent hemangioma over left anterior septum, cauterized with silver nitrate with good hemostasis Oral cavity: clear, edentulous Oropharynx: clear, tonsils absent Neck: soft, no masses or lymphadenopathy Results & Data Vital Signs (Past 12 Hours) Vital Signs Temp Pulse Pulse Resp BP BP Pulse Ox 12/30/23 15:30 67 14 97 12/30/23 15:00 76 20 100 12/30/23 14:30 61 24 100 12/30/23 14:00 60 21 100 12/30/23 13:41 64 12/30/23 13:41 12/30/23 13:30 60 23 100 12/30/23 13:29 63 30 H 100 12/30/23 13:29 63 30 H 152/75 H 100 12/30/23 13:24 66 28 H 95 12/30/23 11:57 36.9 C 81 18 104/63 100 O2 Del Method O2 Flow Rate 12/30/23 15:30 Room Air 12/30/23 15:00 12/30/23 14:30 12/30/23 14:00 12/30/23 13:41 12/30/23 13:41 Nasal Cannula 2 12/30/23 13:30 12/30/23 13:29 Room Air 12/30/23 13:29 Room Air 12/30/23 13:24 12/30/23 11:57 Room Air PG Care Time/CCT Total # of Minutes Spent Total Time Spent with Patient: Total time spent is greater than 50% in coordination of care (as documented) at patient's floor/unit and/or counseling patient: Coding Level of Care Code 44626 OFFICE CONSULT LVL /40M (25 - SIGNIFICANT, SEPARATELY IDENTIFIABLE ) Diagnoses Epistaxis R04.0 CPT Codes Control of Nosebleed - 18605 ([id number])
[2023-12-30] MEDS ORDERED: GLUCOSE 40% GEL 15 GM TUBE PO PRN ×2 (18:23→18:39)
[2023-12-30] MEDS ORDERED: GLUCAGON FOR INJ 1 MG VIAL SQ PRN ×2 (18:23→18:39)
[2023-12-30] MEDS ORDERED: DEXTROSE 50% 50 ML SYRINGE IV PRN ×3 (18:23→18:39)
[2023-12-30] MEDS ORDERED: CARBOHYDRATES FOR HYPOGLYCEMIA PO PRN ×3 (18:23→18:39)
[2023-12-30] MEDS ORDERED: GLUCOSE 10 TAB/TUBE PO PRN ×2 (18:23→18:39)
[2023-12-30] MEDS: INSULIN ASPART PER UNIT CHARGE SC STA (18:33)
[2023-12-30] MEDS ORDERED: ONDANSETRON INJ 2 MG/ML 2 ML VIAL IV PRN (18:39)
[2023-12-30] MEDS ORDERED: ACETAMINOPHEN 325 MG TAB PO PRN (18:39)
[2023-12-30] MEDS: INSULIN ASPART PER UNIT CHARGE SC SCH (19:50)
[2023-12-30] MEDS: ATORVASTATIN 40 MG TAB PO SCH (23:21)
--- OUTSIDE RECORDS SUMMARY | 2023-12-31 00:34 | External Medical Summary | Summary of Care ---
Author Name Unknown Organization [facility] Address [address] [place] [address] Phone [phone] Care Team Providers Care Reimbursement Consultant Name Role Phone Andrea Winters MD Primary Care Provider [phone] Reason for Referral * Evaluate & Treat - Unlimited Visits (Within 3 days (urgent)) - Authorized Specialty Diagnoses / Procedures Referred By Panda dejesus Referred To Contact Otolaryngology Diagnoses Chronic anticoagulation Frequent nosebleeds Vandana Jay CRNP [address] [facility] [place] [address] Referral ID Status Reason Start Date Expiration Date Visits Requested Visits Authorized [id number] Authorized Specialty Services Required 12/17/[phone] Question Answer Referral Priority Within 3 days (urgent) Where should this appointment be scheduled? [facility] Reason for Referral Other Comments Chronic nosebleeds lasting 20-30 mins, 3+ per day. On Eliquis and Plavix. Reason for Visit * Reason Onset Date Comments Advice 12/16/2023 Pierre Encounter Details Date Type Department Care Team (Late st Contact Info) Description 12/16/2023 Telephone Cardiology, [facility] [address] [place] [address] Vandana Jay CRNP [address] [place] [address] Advice (Pierre) Allergies No known active allergiesdocumented as of this encounter (statuses as of 12/17/2023) Medications Medication Sig Dispensed Refills Start Date End Date Status ALCOHOL PREP PADS PADSIndications:DM type 2, not at goal ([facility]) use twice daily 200 3 10/21/2006 Active Cholecalciferol (VITAMIN D-3) 1000 units CapsuleIndications:t aking one daily thursday, thursday and thursday Take 1 Capsule by mouth in the morning. 0 09/30/2017 Active NovoFine 32G X 6 MM (NOVOFINE 32G PEN NEEDLE) USE ONCE DAILY WITH LANTUS 100 Each 3 01/21/2021 Active FreeStyle Lite Test In Vitro Strip (Glucose Blood)Indications:Ty pe 2 diabetes mellitus with hemoglobin A1c goal of less than 8.0% ([facility]) Dx 11.9 Test twice Daily 200 Strip 3 12/12/2021 Active COVID-19 mRNA Vaccine ([email or web address]) 30 MCG/0.3ML Intramuscular Suspension 0 07/18/2021 Active FreeStyle Lite Test In Vitro Strip (Glucose Blood) USE TWICE A DAY 200 Strip 1 12/11/2022 Active Levothyroxine Sodium 88 MCG Oral Tablet (Levoxyl)Indications :Acquired hypothyroidism Take 1 Tablet by mouth in the morning. (at least 30 min prior to breakfast or other meds). 90 Tablet 3 01/27/2023 Active Insulin Glargine Solostar 100 UNIT/ML Subcutaneous Solution Pen-injector (Lantus SoloStar) INJECT 20 UNITS UNDER THE SKIN ONCE DAILY 30 mL 3 05/05/2023 Active Atorvastatin Calcium 40 MG Oral Tablet (Lipitor) Take 1 Tablet by mouth every afternoon. Do not start before May 23, 2023. 90 Tablet 3 05/23/2023 Active Additional Information Patient taking differently:40 mg OralHS, Reported on 10/13/2023 hydroCHLOROthiazide 25 MG Oral Tablet (Hydrodiuril)Indicat ions:HTN, goal below 150/90,Stage 3b chronic kidney disease (HCC),Hyperkalemia,H TN, goal below 140/90 TAKE 1 TABLET DAILY 90 Tablet 3 06/22/2023 Active Trulicity 4.5 MG/0.5ML Subcutaneous Solution Pen-injector (Dulaglutide) INJECT THE CONTENTS OF 1 PEN (4.5 MG) UNDER THE SKIN ONCE A WEEK 6 mL 3 07/20/2023 Active Additional Information Patient taking differently: INJECT THE CONTENTS OF 1 PEN (4.5 MG) UNDER THE SKIN ONCE A WEEK. Finish this and do not reorder., Indications: next refill for trulicity will be for the 3 mg dose, Reported on 12/04/2023 Apixaban 2.5 MG Oral Tablet (Eliquis)Indications :HTN, goal below 150/90,CAD S/P percutaneous coronary angioplasty,S/P TAVR (transcatheter aortic valve replacement),Severe aortic stenosis,LBBB (left bundle branch block),PAD (peripheral artery disease) ([facility]),PAF (paroxysmal atrial fibrillation) ([facility]) Take 1 Tablet by mouth in the morning and 1 Tablet before bedtime. 180 Tablet 3 08/03/2023 Active Clopidogrel Bisulfate 75 MG Oral Tablet (pLAVix) Take 1 Tablet by mouth in the morning. 90 Tablet 3 08/04/2023 Active Lancing DeviceIndications:Ty pe 2 diabetes mellitus with hemoglobin A1c goal of less than 8.0% ([facility]) Use to check blood sugars once daily E 11.9 1 Each 0 12/04/2023 Active Lancets 33GIndications:Type 2 diabetes mellitus with hemoglobin A1c goal of less than 8.0% ([facility]) Use as directed. 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 Kidney disease, chronic, stage III (GFR 30-59 ml /min) 10/22/2007 Overview: Based on labs from 07/19/07 ADVANCE DIRECTIVE INFORMATION 05/29/2006 Overview: Pt instructed to bring in copy of living will Trigger finger 02/27/2006 Hypothyroidism 02/27/2006 documented as of this encounter (statuses as of 12/17/2023) Resolved Problems Problem Noted Date Diagnosed Date Resolved Date HTN, goal below 140/90 06/24/201211/26 HTN, goal below 130/80 10/17/200906/24 Overview: Per HTN Taxonomy. DM type 2, not at goal 07/28/200709/18 MALIGN NEOPL PROSTATE 02/27/20062017 HTN, goal below 140/90 02/27/200610/17 Overview: Per HTN Taxonomy. Dyslipidemia, goal to be determined 02/27/2006 09/04/2009 Overview: Per Lipid Taxonomy. Type 2 diabetes mellitus wit h hemoglobin A1c goal of less than 7.0% 02/27/2006 09/18/2014 Overview: ICD-10 update of inactive term documented as of this encounter (statuses as of 12/17/2023) Immunizations Name Administration Dates Next Due COVID-19 mRNA, LNP-s, No Pre serve, 2-Dose Series ([email or web address]) 12/25/2020,12/04/2020 COVID-19, LNP-s, No Preserve , Antione-sucrose, Ages 12+ (Pfizer) 07/18/2021 Pneumococcal Conjugate Vacc, 13 Valent (Prevnar) 03/19/2015 Pneumococcal Polysaccharide PPV23 (Pneumovax) 09/21/2007,09/21/2006,02/27/2006 Seasonal Influenza, PF, 6 M & above, IM , (FluLaval or Fluzone) 06/28/2018,08/05/2017 Seasonal Influenza, Quadriva lent Hd (Fluzone Hd) 06/04/2023 Seasonal Influenza, Quadriva lent Hd, 65+ Yrs 06/06/2020 Seasonal Influenza, Quadriva lent, No Preserve, IM 06/23/2022 Seasonal Influenza, Split, I IV3, With Preserve, Inj 06/15/2016,06/09/2015,06/20/2014,06/15,05/31/2012,06/09/2011,07/01/2010 ,06/22/2009,07/17/2008,07/19/2007,06/21 Seasonal Influenza, Trivalen t, High Dose, No Preserve, IM 06/20/2019 TD - Tetanus/Diptheria (ADULT) 9(Deferred: Patient Refused - due to ins coverage) TD, Preservative Free 04/30/2010 TDAP (age 10 and older)(Boostrix) 05/18/2020 Varicella Zoster Vaccine (Adult) 09/29/2007 Zoster Vaccine Recombinant (Shingrix) 06/03/2018 ,03/03/2018 documented as of this encounter Social History Tobacco Use Types Packs/Day Years Used Date Smoking Tobacco: Former Cigarettes 1 25 0 09/21/1958 - 09/21/1983 Passive Smoke Exposure: Past Smokeless Tobacco: Never Alcohol Use Standard Drinks/Week Comments No 0 (1 standard drink = 0.6 oz pur e alcohol) quit PHQ-2 Answer Date Recorded PHQ-2 Score 0 05/18/2020 Hunger Vital Sign Answer Date Recorded Within the past 12 months, y ou worried that your food would run out before you got the money to buy more. Never true 06/22/20 23 Within the past 12 months, t he food you bought just didn't last and you didn't have money to get more. Never true 06/22/2023 Sex and Gender Information Value Date Recorded Sex Assigned at Male 05/17/2019 1:43 PM EDT Gender Identity Male 05/17/2019 1:43 PM EDT Sexual Orientation Straight 05/17/2019 1: 43 PM EDT Job Start Date Occupation Industry Not on file Not on file Not on file documented as of this encounter Functional Status Functional Status Response Date of Assess ment Are you deaf or do you have serious difficulty h earing? No 06/16/2023 Are you blind or do you have serious difficulty seeing, even when wearing glasses? No 06/16/2023 Do you have serious difficul ty walking or climbing stairs? (5 years old or older) No 06/17/2023 Do you have difficulty dress ing or bathing? (5 years old or older) No 06/16/2023 Because of a physical, menta l, or emotional condition, do you have difficulty doing errands alone such as visiting a doctor s office or shopping? (15 years old or older) No 06/16/20 Cognitive Status Response Date of Assessm ent Because of a physical, menta l, or emotional condition, do you have serious difficulty concentrating, remembering, or making decisions? (5 years old or older) No 06/16/2023 documented as of this encounter Miscellaneous Notes * Telephone Encounter - Darby Hyman LPN - 12/17/2023 11:37 AM EDT Please schedule next available for nose bleeds. Any bleeding over 20 minutes should go to ER. * Telephone Encounter - Byron Gutierrez OSA - 12/17/2023 10:36 AM EDT Please triage and advise on scheduling. JESSICA Best * Telephone Encounter - Vandana Jay CRNP - 12/17/2023 8:47 AM EDT Three day urgent ENT appointment, please assist with scheduling. * Telephone Encounter - Ngoc Keith LPN - 12/17/2023 8:37 AM EDT Spoke with by phone. Having multiple nosebleeds per day. Lasting 20-30 minutes, taking 15+ minutes to get under control and 30 mins to stop completely. Pt is willing to see ENT. Referral pended 3 day urgent. * Telephone Encounter - Kylie Guzman OSA - 12/17/2023 8:21 AM EDT Person calling: Sandra Relationship to patient: Number to return call: [phone] Reason for call: nose bleeds frequent Pharmacy: na Provider Name:Vandana Jay Patient is on Eliquis and Plavix and has been having frequent nose bleeds, wants to know what to do. He has had them for 20 minutes or more, 3 times yesterday. States its a lot of blood, has some thick spots like clots. Would like to speak to nurse Transferred to nurse line: Ngoc Please advise Thanks JESSICA Bryan * Telephone Encounter - Vandana Jay CRNP - 12/16/2023 11:12 AM EDT How long are these nose bleeds lasting? If short in duration, recommend nasal saline to moisturize nasal passages. Can also try humidification. If symptoms are lasting for longer durations will need to see ENT. AMARJIT Longoria * Telephone Encounter - Riddhi Sinha OSA - 12/16/2023 9:16 AM EDT Person calling: Sandra Relationship to patient: Number to return call: [phone] Reason for call: nose bleeds Pharmacy: na Provider Name:Vandana Jay Patient is on Eliquis and Plavix and has been having frequent nose bleeds, wants to know what to do. Please advise. Thanks documented in this encounter Plan of Treatment Upcoming Encounters Date Type Department Care Team (Late st Contact Info) Description 12/30/2023 11:00 AM EDT [facility] [address] Vandnaa Jay CRNP [address] [facility] [place] [address] 03/03/2024 1:00 PM EDT Cardiac Studies Cardiac Studies, [facility] [address] [facility] [place] [address] 03/04/2024 9:30 AM EDT Office Visit Pharmacy, [place] [address] [place] [address] [facility] [address] [place] [address] 05/30/2024 2:40 PM EDT Office Visit Nephrology, [facility] [address] [facility] [place] [address] Rowdy Cee MD [address] [facility] [place] [address] 06/09/2024 7:40 AM EDT Office Visit Family Practice, [place] [address] [place] [id number] Andrea Winters MD [address] [place] [address] 08/17/2024 1:30 PM EST Cardiac Studies Cardiac Studies, [facility] [address] [facility] [place] [address] 08/17/2024 3:00 PM EST Office Visit Cardiology, [facility] [address] [facility] [place] [address] Oumar Rojas MD [address] [place] [address] Scheduled Referrals Name Type Priority Associated Diagnoses Order Schedule ADULT/PEDS OTOLARYNGOLOGY REFERRAL OP Referral Within 3 days (urgent) Chronic anticoagulation Frequent nosebleeds Ordered: 12/17/2023 Health Maintenance Due Date Last Done Comments Depression Screening 05/18/2021 05/18/2020 COVID-19 Vaccine (2022- 4 season) 2023 07/18/2021, 12/25/2020, 12/04/2020 TSH 05/29/2024 05/29/2023, 12/21, 12/02/2022, Additional history exists Zoster Vaccines Completed 06/03/2018, 02/19, 09/29/2007 Influenza Vaccine (FLU shot) Completed , 06/23/2022, 06/06/2020, Additional history exists documented as of this encounter Medical Devices Implanted Type Area Poultry Cutter Device Identifier Shelf Expiration Date Model / Serial / Lot Lens Intraoc 19.5 - [id number] - [id number] Implanted:Qty: 1 on 01/22/2021 by Julio Cesar Alvarado MD at [facility] Left: Eye [employer] 08/20/2025 [id number] / [id number] / [id number] Lens Intraoc 21.0 - [id number] - [id number] Implanted:Qty: 1 on 02/05/2021 by Julio Cesar Alvarado MD at [facility] Right: Eye [employer]CH [employer]OM[employer] 08/20/2025 [id number] / [id number] / [id number] Stent Synergy Xd Mr 2.41s86ry - [id number] Implanted:Qty: 1 on 05/22/2023 by Oumar Rojas MD [place] [facility] [place] [employer] [id number] 06/22/2024 [id number] / / [id number] Stent Synergy Xd Mr 2.75z84uo - [id number] Implanted:Qty: 1 on 05/22/2023 by Oumar Rojas MD at [facility] [place] [employer] [id number] 01/08/2024 [id number] / / [id number] Stent Synergy Xd Mr 3.13q04qn - [id number] Implanted:Qty: 1 on 05/22/2023 by Oumar Rojas MD at [facility] [place] [employer] [id number] 02/17/2024 [id number] 2300 / / [id number] Valve Ned 3 Ultra 23mm - [id number] Implanted:Qty: 1 on 06/16/2023 by Oumar Rojas MD at [facility] [place] [employer] [id number] 06/26/2024 [id number] / / documented as of this encounter Visit Diagnoses Diagnosis Frequent nosebleeds- Primary Chronic anticoagulation Long-term (current) use of anticoagulants documented in this encounter Advance Directives Latest Code Status on File Code Status Date Activated Date Inactivated Comments Full Code 06/16/2023 2:08 PM 06/19/2023 6:06 PM Will discuss with patient Question Answer Comments Discussion of Advance Directives occurred with: Patient Code Status History Code Status Date Activated Date Inactivated Comments Full Code 05/22/2023 1:07 PM 05/23/2023 2:35 PM This or estella reflects the patients wishes and were consensually agreed upon. Question Answer Comments Discussion of Advance Directives occurred with: Patient Does the patient have a Living Will? No Does the patient have Health Care Power of Medical Lab Tech Instructor? No Care Teams Reimbursement Consultant Relationship Specialty Start Date End Date Andrea Winters MD [address] [place] [address] PCP - General Family Medicine 11/08/18 documented as of this encounter
--- OUTSIDE RECORDS SUMMARY | 2023-12-31 00:34 | External Medical Summary | Summary of Care ---
Author Name Unknown Organization [facility] Address [address] [place] [address] Phone [phone] Care Team Providers Care Backup Administrative Coordinator Name Role Phone Andrea Winters MD Primary Care Provider [phone] Reason for Referral * Evaluate & Treat - Unlimited Visits (Within 3 days (urgent)) - Authorized Specialty Diagnoses / Procedures Referred By Panda dejesus Referred To Contact Otolaryngology Diagnoses Chronic anticoagulation Frequent nosebleeds Vandana Jay CRNP [address] [place] [address] Referral ID Status Reason Start Date Expiration Date Visits Requested Visits Authorized [id number] Authorized Specialty Services Required 12/17/2023 999 999 Question Answer Referral Priority Within 3 days (urgent) Where should this appointment be scheduled? [facility] Reason for Referral Other Comments Chronic nosebleeds lasting 20-30 mins, 3+ per day. On Eliquis and Plavix. Reason for Visit * Reason Onset Date Comments Advice 12/16/2023 Pierre Encounter Details Date Type Department Care Team (Late st Contact Info) Description 12/16/2023 Telephone Cardiology, [facility] [address] [place] [address] Vandana Jay CRNP [address] [place] [address] Advice (Pierre) Allergies No known active allergiesdocumented as of this encounter (statuses as of 12/17/2023) Medications Medication Sig Dispensed Refills Start Date End Date Status ALCOHOL PREP PADS PADSIndications:DM type 2, not at goal ([facility]) use twice daily 200 3 [...] hemoglobin A1c goal of less than 8.0% ([facility]) Dx 11.9 Test twice Daily 200 Strip 3 12/12/2021 Active COVID-19 mRNA Vaccine ([employer]) 30 MCG/0.3ML Intramuscular Suspension 0 07/18/2021 Active [...] (left bundle branch block),PAD (peripheral artery disease) ([facility]),PAF (paroxysmal atrial fibrillation) ([facility]) Take 1 Tablet by mouth in the morning and 1 Tablet before bedtime. 180 Tablet 3 08/03/2023 Active Clopidogrel Bisulfate 75 MG Oral Tablet (pLAVix) Take 1 Tablet by mouth in the morning. 90 Tablet 3 08/04/2023 Active Lancing DeviceIndications:Ty pe 2 diabetes mellitus with hemoglobin A1c goal of less than 8.0% ([facility]) Use to check blood sugars once daily E 11.9 1 Each 0 12/04/2023 Active Lancets 33GIndications:Type 2 diabetes mellitus with hemoglobin A1c goal of less than 8.0% ([facility]) Use as directed. Check blood [...] mRNA, LNP-s, No Pre serve, 2-Dose Series ([employer]) 12/25/2020,12/04/2020 COVID-19, LNP-s, No Preserve , Antione-sucrose, [...] encounter Miscellaneous Notes * Telephone Encounter - Byron Gutierrez OSA [...] Relationship to patient: Number to return call: [phone] Reason for call: nose bleeds frequent Pharmacy: [...] Relationship to patient: Number to return call: [phone] Reason for call: nose bleeds Pharmacy: na Provider Name:Vandana Jay Patient is on Eliquis and Plavix and has been having frequent nose bleeds, wants to know what to do. Please advise. Thanks documented in this encounter Plan of Treatment Upcoming Encounters Date Type Department Care Team (Late st Contact Info) Description 12/30/2023 11:00 AM EDT Office Visit Cardiology, [facility] 132 [facility] [place] [address] Vandana Jay CRNP 132 [place] [address] 03/03/2024 1:00 PM EDT Cardiac Studies Cardiac Studies, [facility] [address] [place] [address] 03/04/2024 9:30 AM EDT Office Visit Pharmacy, [place] [address] [place] [address] [facility] [address] [place] [address] 05/30/2024 2:40 PM EDT Office Visit Nephrology, [facility] [address] [facility] [place] [address] Rowdy Cee MD [address] [facility] [place] [address] 06/09/2024 7:40 AM EDT Office Visit Family Psychiatric, [place] [address] [place] [address] Andrea Winters MD [address] [place] [address] 08/17/2024 1:30 PM EST Cardiac Studies Cardiac Studies, [facility] [address] [place] [address] 08/17/2024 3:00 PM EST Office Visit Cardiology, [facility] [address] [place] [address] Oumar Rojas MD [address] [place] [address] Scheduled Referrals Name Type Priority Associated Diagnoses Order Schedule ADULT/PEDS OTOLARYNGOLOGY REFERRAL OP Referral Within 3 days (urgent) Chronic anticoagulation Frequent nosebleeds Ordered: 12/17/2023 Health Maintenance Due Date Last Done Comments Depression Screening 05/18/2021 05/18/2020 COVID-19 Vaccine (4 - 2022-2 4 season) 2023 07/18/2021, 12/25/2020, 12/04/2020 TSH 05/29/2024 05/29/2023, 12/21, 12/02/2022, Additional history exists Zoster Vaccines Completed 06/03/2018, 02/19, 09/29/2007 Influenza Vaccine (FLU shot) Completed , 06/23/2022, 06/06/2020, Additional history exists documented as of this encounter Medical Devices Implanted Type Area Campaign Marketing Manager Device Identifier Shelf Expiration Date Model / Serial / Lot Lens Intraoc 19.5 - [id number] - [id number] Implanted:Qty: 1 on 01/22/2021 by Julio Cesar Alvarado MD at OR [facility] Left: Eye [employer]OM[employer] 08/20/2025 [id number] / [id number] / [id number] Lens Intraoc 21.0 - [id number] - [id number] Implanted:Qty: 1 on 02/05/2021 by Julio Cesar Alvarado MD at OR [facility] Right: Eye BAUSCH & LOMB 08/20/2025 [id number] / [id number] / [id number] Stent Synergy Xd Mr 2.10m74ps - [id number] Implanted:Qty: 1 on 05/22/2023 by Oumar Rojas MD at [facility] [employer] [id number] 06/22/2024 [id number] 0250 / / [id number] Stent Synergy Xd Mr 2.84k44fa - [id number] Implanted:Qty: 1 on 05/22/2023 by Oumar Rojas MD at [facility] [employer] [id number] 01/08/2024 [id number] 4250 / / [id number] Stent Synergy Xd Mr 3.78s15in - [id number] Implanted:Qty: 1 on 05/22/2023 by Oumar Rojas MD at [facility] [employer] [id number] 02/17/2024 [id number] 2300 / / [id number] Valve Ned 3 Ultra 23mm - [id number] Implanted:Qty: 1 on 06/16/2023 by Oumar Rojas MD at [facility] [employer] [id number] 06/26/2024 [id number] / / documented as of this encounter [...] the patient have Health Care Power of Sustainable Development Policy Analyst? No Care Teams Backup Administrative Coordinator Relationship Specialty Start Date End Date Andrea Winters MD [address] [place] [address] PCP - General Family Medicine 11/08/18 documented as of this encounter
--- OUTSIDE RECORDS SUMMARY | 2023-12-31 00:34 | External Medical Summary | Summary of Care ---
Author Name Unknown Organization [facility] Address [address] [place] [address] Phone [phone] Care Team Providers Care Manufacturer Name Role Phone Andrea Winters MD Primary Care Provider [phone] Reason for Referral * Evaluate & Treat - Unlimited Visits (Within 3 days (urgent)) - Authorized Specialty Diagnoses / Procedures Referred By Panda dejesus Referred To Contact Otolaryngology Diagnoses Chronic anticoagulation Frequent nosebleeds Vandana Jay CRNP [address] [place] [address] Referral ID Status Reason Start Date Expiration Date Visits Requested Visits Authorized [id number] Authorized Specialty Services Required 12/17/[phone] Question Answer Referral Priority Within 3 days (urgent) Where should this appointment be scheduled? [facility] Reason for Referral Other Comments Chronic nosebleeds lasting 20-30 mins, 3+ per day. On Eliquis and Plavix. Reason for Visit * Reason Onset Date Comments Advice 12/16/2023 Pierre Encounter Details Date Type Department Care Team (Late st Contact Info) Description 12/16/2023 Telephone Cardiology, [facility] [address] [place] [address] Vandana Jay CRNP [address] [place] [address] Advice (Pierre) Allergies No known active allergiesdocumented as of this encounter (statuses as of 12/17/2023) Medications Medication Sig Dispensed Refills Start Date End Date Status ALCOHOL PREP PADS PADSIndications:DM type 2, not at goal ([facility]) use twice daily 200 3 10/21/2006 Active [...] hemoglobin A1c goal of less than 8.0% ([facility]) Dx 11.9 Test twice Daily 200 Strip 3 12/12/2021 Active COVID-19 mRNA Vaccine ([employer]) 30 MCG/0.3ML Intramuscular Suspension 0 07/18/2021 Active [...] (left bundle branch block),PAD (peripheral artery disease) ([facility]),PAF (paroxysmal atrial fibrillation) ([facility]) Take 1 Tablet by mouth in the morning and 1 Tablet before bedtime. 180 Tablet 3 08/03/2023 Active Clopidogrel Bisulfate 75 MG Oral Tablet (pLAVix) Take 1 Tablet by mouth in the morning. 90 Tablet 3 08/04/2023 Active Lancing DeviceIndications:Ty pe 2 diabetes mellitus with hemoglobin A1c goal of less than 8.0% ([facility]) Use to check blood sugars once daily E 11.9 1 Each 0 12/04/2023 Active Lancets 33GIndications:Type 2 diabetes mellitus with hemoglobin A1c goal of less than 8.0% ([facility]) Use as directed. Check blood sugars once [...] mRNA, LNP-s, No Pre serve, 2-Dose Series ([employer]) 12/25/2020,12/04/2020 COVID-19, LNP-s, No Preserve , Antione-sucrose, [...] encounter Miscellaneous Notes * Telephone Encounter - Nilsa Kay OSA - 12/17/2023 1:12 PM EDT Pt has been scheduled and added to wait list. JESSICA Betts * Telephone Encounter - Darby Hyman LPN [...] Relationship to patient: Number to return call: [phone] Reason for call: nose bleeds frequent Pharmacy: [...] Relationship to patient: Number to return call: [phone] Reason for call: nose bleeds Pharmacy: na Provider Name:Vandana Jay Patient is on Eliquis and Plavix and has been having frequent nose bleeds, wants to know what to do. Please advise. Thanks documented in this encounter Plan of Treatment Upcoming Encounters Date Type Department Care Team (Late st Contact Info) Description 12/30/2023 11:00 AM EDT Office Visit Cardiology, [facility] 132 [facility] [place] [address] PierreVandana CRNP 132 [facility] [place] [address] 02/19/2024 10:30 AM EDT Office Visit Otolaryngology [facility] 132 [facility] [place] [address] Darya Orellana MD 132 [facility] [place] [address] 03/03/2024 1:00 PM EDT Cardiac Studies Cardiac Studies, [facility] 132 [facility] [place] [address] 03/04/2024 9:30 AM EDT Office Visit Pharmacy, [address] [address] [facility] [address] [place] [address] 05/30/2024 2:40 PM EDT Office Visit Nephrology, [place] [address] [place] [address] Rowdy Cee MD [address] [place] [address] 06/09/2024 7:40 AM EDT Office [facility] [address] [place] [address] Andrea Winters MD [address] [place] [address] 08/17/2024 1:30 PM EST Cardiac Studies Cardiac Studies, [facility] [address] [place] [address] 08/17/2024 3:00 PM EST Office Visit Cardiology, [facility] [address] [place] [address] Oumar Rjoas MD [address] [place], [place] [address] Scheduled Referrals Name Type Priority Associated Diagnoses [...] this encounter Medical Devices Implanted Type Area Excelsior Machine Tender Device Identifier Shelf Expiration Date Model / Serial / Lot Lens Intraoc 19.5 - [id number] - [id number] Implanted:Qty: 1 on 01/22/2021 by Julio Cesar Alvarado MD at [facility] Left: Eye [employer]CH [employer]OM[employer] 08/20/2025 [id number] / [id number] / [id number] Lens Intraoc 21.0 - [id number] - [id number] Implanted:Qty: 1 on 02/05/2021 by Julio Cesar Alvarado MD at OR [facility] Right: Eye BAUSCH & LOMB 08/20/2025 [id number] / [id number] / [id number] Stent Synergy Xd Mr 2.12p71xx - [id number] Implanted:Qty: 1 on 05/22/2023 by Oumar Rojas MD at [facility] [employer] [id number] 06/22/2024 [id number] 0250 / / [id number] Stent Synergy Xd Mr 2.05k70xj - [id number] Implanted:Qty: 1 on 05/22/2023 by Oumar Rojas MD at [facility] [employer] [id number] 01/08/2024 [id number] 4250 / / [id number] Stent Synergy Xd Mr 3.91w76ww - [id number] Implanted:Qty: 1 on 05/22/2023 by Oumar Rojas MD at [facility] [employer] [id number] 02/17/2024 [id number] 2300 / / [id number] Valve Ned 3 Ultra 23mm - [id number] Implanted:Qty: 1 on 06/16/2023 by Oumar Rojas MD at [facility] [employer] [id number] 06/26/2024 [id number] / / documented as of this encounter [...] the patient have Health Care Power of Repair Clerk? No Care Teams Manufacturer Relationship Specialty Start Date End Date Andrea Winters MD [address] [place] [address] PCP - General Family Medicine 11/08/18 documented as of this encounter
--- OUTSIDE RECORDS SUMMARY | 2023-12-31 00:34 | External Medical Summary | Summary of Care ---
Author Name Unknown Organization [facility] Address [address] [place] [address] Phone [phone] Care Team Providers Care Woodworking Craftsman Name Role Phone Andrea Winters MD Primary Care Provider [phone] Reason for Referral * Evaluate & Treat - Unlimited Visits (Within 3 days (urgent)) - Authorized Specialty Diagnoses / Procedures Referred By Panda dejesus Referred To Contact Otolaryngology Diagnoses Chronic anticoagulation Frequent nosebleeds Vandana Jay CRNP [address] [place] [address] Referral ID Status Reason Start Date Expiration Date Visits Requested Visits Authorized [id number] Authorized Specialty Services Required 12/17/[phone] Question Answer Referral Priority Within 3 days (urgent) Where should this appointment be scheduled? [facility] Reason for Referral Other Comments Chronic nosebleeds lasting 20-30 mins, 3+ per day. On Eliquis and Plavix. Reason for Visit * Reason Onset Date Comments Advice 12/16/2023 Pierre Encounter Details Date Type Department Care Team (Late st Contact Info) Description 12/16/2023 Telephone Cardiology, [facility] [address] [place] [address] Vandana Jay CRNP [address] [place] [address] Advice (Pierre) Allergies No known active allergiesdocumented as of this encounter (statuses as of 12/17/2023) Medications Medication Sig Dispensed Refills Start Date End Date Status ALCOHOL PREP PADS PADSIndications:DM type 2, not at goal ([facility]) use twice daily 200 3 [...] hemoglobin A1c goal of less than 8.0% ([facility]) Dx 11.9 Test twice Daily 200 Strip 3 12/12/2021 Active COVID-19 mRNA Vaccine ([employer]) 30 MCG/0.3ML Intramuscular Suspension 0 07/18/2021 Active [...] (left bundle branch block),PAD (peripheral artery disease) ([facility]),PAF (paroxysmal atrial fibrillation) ([facility]) Take 1 Tablet by mouth in the morning and 1 Tablet before bedtime. 180 Tablet 3 08/03/2023 Active Clopidogrel Bisulfate 75 MG Oral Tablet (pLAVix) Take 1 Tablet by mouth in the morning. 90 Tablet 3 08/04/2023 Active Lancing DeviceIndications:Ty pe 2 diabetes mellitus with hemoglobin A1c goal of less than 8.0% ([facility]) Use to check blood sugars once daily E 11.9 1 Each 0 12/04/2023 Active Lancets 33GIndications:Type 2 diabetes mellitus with hemoglobin A1c goal of less than 8.0% ([facility]) Use as directed. Check blood [...] mRNA, LNP-s, No Pre serve, 2-Dose Series ([employer]) 12/25/2020,12/04/2020 COVID-19, LNP-s, No Preserve , Antione-sucrose, [...] encounter Miscellaneous Notes * Telephone Encounter - Vandana Jay CRNP [...] Relationship to patient: Number to return call: [phone] Reason for call: nose bleeds frequent Pharmacy: [...] Relationship to patient: Number to return call: [phone] Reason for call: nose bleeds Pharmacy: na Provider Name:Vandana Jay Patient is on Eliquis and Plavix and has been having frequent nose bleeds, wants to know what to do. Please advise. Thanks documented in this encounter Plan of Treatment Upcoming Encounters Date Type Department Care Team (Late st Contact Info) Description 12/30/2023 11:00 AM EDT Office Visit Cardiology, [facility] [address] [address] Vandana Jay CRNP [address] [place] [address] 03/03/2024 1:00 PM EDT Cardiac Studies Cardiac Studies, [facility] [address] [place] [address] 03/04/2024 9:30 AM EDT Office Visit Pharmacy, [place] [address] [place] [address] [place], [facility] [address] [place] [address] 05/30/2024 2:40 PM EDT Office Visit Nephrology, [facility] 200 [facility] [place] [address] Rowdy Cee MD 200 [facility] [place] [address] 06/09/2024 7:40 AM EDT Office Visit Family Practice, [place] [address] [place] [address] Andrea Winters MD [address] [place] [address] 08/17/2024 1:30 PM EST Cardiac Studies Cardiac Studies, [facility] [address] [place] [address] 08/17/2024 3:00 PM EST Office Visit Cardiology, [facility] [address] [place] [address] Oumar Rojas MD [address] [place], [place] [address] Scheduled Referrals Name Type Priority Associated Diagnoses Order Schedule ADULT/PEDS OTOLARYNGOLOGY REFERRAL OP Referral Within 3 days (urgent) Chronic anticoagulation Frequent nosebleeds Ordered: 12/17/2023 Health Maintenance Due Date Last Done Comments Depression Screening 05/18/2021 05/18/2020 COVID-19 Vaccine (2022-2 4 season) 2023 07/18/2021, 12/25/2020, 12/04/2020 TSH 05/29/2024 05/29/2023, 12/21, 12/02/2022, Additional history exists Zoster Vaccines Completed 06/03/2018, 02/19, 09/29/2007 Influenza Vaccine (FLU shot) Completed , 06/23/2022, 06/06/2020, Additional history exists documented as of this encounter Medical Devices Implanted Type Area Battery Loader Device Identifier Shelf Expiration Date Model / Serial / Lot Lens Intraoc 19.5 - [id number] - [id number] Implanted:Qty: 1 on 01/22/2021 by Julio Cesar Alvarado MD at OR [facility] Left: Eye [employer]OM[employer] 08/20/2025 [id number] / [id number] / [id number] Lens Intraoc 21.0 - [id number] - [id number] Implanted:Qty: 1 on 02/05/2021 by Julio Cesar Alvarado MD at OR [facility] Right: Eye BAUSCH & LOMB 08/20/2025 [id number] / [id number] / [id number] Stent Synergy Xd Mr 2.07j53kp - [id number] Implanted:Qty: 1 on 05/22/2023 by Oumar Rojas MD at [facility] [employer] [id number] 06/22/2024 [id number] 0250 / / [id number] Stent Synergy Xd Mr 2.96n33fr - [id number] Implanted:Qty: 1 on 05/22/2023 by Oumar Rojas MD at [facility] [employer] [id number] 01/08/2024 [id number] 4250 / / [id number] Stent Synergy Xd Mr 3.44y13vk - [id number] Implanted:Qty: 1 on 05/22/2023 by Oumar Rojas MD at [facility] [employer] [id number] 02/17/2024 [id number] 2300 / / [id number] Valve Ned 3 Ultra 23mm - [id number] Implanted:Qty: 1 on 06/16/2023 by Oumar Rojas MD at [facility] [employer] [id number] 06/26/2024 [id number] / / documented as of this encounter [...] the patient have Health Care Power of Boiler Room Operator? No Care Teams Woodworking Craftsman Relationship Specialty Start Date End Date Andrea Winters MD [address] [place] [address] PCP - General Family Medicine 11/08/18 documented as of this encounter
--- OUTSIDE RECORDS SUMMARY | 2023-12-31 00:35 | External Medical Summary ---
Author Name Unknown Address Unknown Organization K01:[facility] - [facility] [address] [facility] [address] Laboratory Report Ordering Provider Test Date Status VAL DIZA 12/02/2023 13:36:29 Final Observation Date Value Abnormality Reference (Units ) Status WBC, Total 12/02/2023 13:36:29 8.23 4.00-10.80 (K/uL) Final RBC 12/02/2023 13:36:29 4.53 4.50-5.25 (M/uL) Final Hemoglobin 12/02/2023 13:36:29 13.6 Below low normal 14.0-16.8 (g/dL) Final HCT 12/02/2023 13:36:29 41.4 40.0-48.4 (%) Final MCV 12/02/2023 13:36:29 91.4 82.0-99.5 (fL) Final MCH 12/02/2023 13:36:29 30.0 27.0-34.0 (pg) Final MCHC 12/02/2023 13:36:29 32.9 32.0-36.0 (g/dL) Final RDW 12/02/2023 13:36:29 14.3 11.5-15.5 (%) Final Platelets 12/02/2023 13:36:29 268 140-400 (K/uL) Final MPV 12/02/2023 13:36:29 10.9 6.6-11.1 (fL) Final Nucleated erythrocytes/100 leukocytes [Ratio] in Blood by Automated count 12/02/2023 13:36:29 0 <=0 (/100 WBCs) Final Performing Location [facility] - [address] [facility] [address]
--- OUTSIDE RECORDS SUMMARY | 2023-12-31 00:35 | External Medical Summary | Summary of Care ---
Author Name Unknown Organization [facility] Address [address] [place] [address] Phone [phone] Care Team Providers Care Inside B2B Sales Name Role Phone Andrea Winters MD Primary Care Provider [phone] Reason for Visit * Reason Comments Dosage Adjustment In Person (Anticoag Cl inic) Diabetes Follow-Up Encounter Details Date Type Department Care Team (Late st Contact Info) Description 12/04/2023 10:30 AM EDT Office Visit Pharmacy, [facility] [address] [place] [address] [facility] [address] [place] [address] Type 2 diabetes mellitus with hemoglobin A1c goal of less than 8.0% ([facility])* Allergies No known active allergiesdocumented as of this encounter (statuses as of 12/04/2023) Medications Medication Sig Dispensed Refills Start Date End Date Status ALCOHOL PREP PADS PADSIndications:DM type 2, not at goal (HCC) use twice daily 200 3 10/21/2006 Active Cholecalciferol (VITAMIN D-3) 1000 units CapsuleIndications: taking one daily thursday, thursday and thursday Take 1 Capsule by mouth in the morning. 0 09/30/2017 Active NovoFine 32G X 6 MM (NOVOFINE 32G PEN NEEDLE) USE ONCE DAILY WITH LANTUS 100 Each 3 01/21/2021 Active FreeStyle Lite Test In Vitro Strip (Glucose Blood)Indications:T ype 2 diabetes mellitus with hemoglobin A1c goal of less than 8.0% ([facility]) Dx 11.9 Test twice Daily 200 Strip 3 12/12/2021 Active COVID-19 mRNA Vaccine ([employer]) 30 MCG/0.3ML Intramuscular Suspension 0 07/18/2021 Active FreeStyle Lite Test In Vitro Strip (Glucose Blood) USE TWICE A DAY 200 Strip 1 12/11/2022 Active Levothyroxine Sodium 88 MCG Oral Tablet (Levoxyl)Indication s:Acquired hypothyroidism Take 1 Tablet by mouth in the morning. (at least 30 min prior to breakfast or other meds). 90 Tablet 3 01/27/2023 Active amLODIPine Besylate 10 MG Oral Tablet (Norvasc) Take 1 Tablet by mouth daily. 90 Tablet 2 03/18/2023 Active Insulin Glargine Solostar 100 UNIT/ML Subcutaneous [...] on 10/13/2023 hydroCHLOROthiazide 25 MG Oral Tablet (Hydrodiuril)Indica tions:HTN, goal below 150/90,Stage 3b chronic kidney disease (HCC),Hyperkalemia, HTN, goal below 140/90 TAKE 1 TABLET DAILY [...] on 12/04/2023 Apixaban 2.5 MG Oral Tablet (Eliquis)Indication s:HTN, goal below 150/90,CAD S/P percutaneous coronary angioplasty,S/P TAVR (transcatheter aortic valve replacement),Severe aortic stenosis,LBBB (left bundle branch block),PAD (peripheral artery disease) ([facility]),PAF (paroxysmal atrial fibrillation) ([facility]) Take 1 Tablet by mouth in the morning and 1 Tablet before bedtime. 180 Tablet 3 08/03/2023 Active Clopidogrel Bisulfate 75 MG Oral Tablet (pLAVix) Take 1 Tablet by mouth in the morning. 90 Tablet 3 08/04/2023 Active Lancing DeviceIndications:T ype 2 diabetes mellitus with hemoglobin A1c goal of less than 8.0% ([facility]) Use to check blood sugars once daily E 11.9 1 Each 0 12/04/2023 Active Lancets 33GIndications:Type 2 diabetes mellitus with hemoglobin A1c goal of less than 8.0% ([facility]) Use as directed. Check blood sugars once daily E 11.9 100 Each 1 12/04/2023 Active metFORMIN HCl 500 MG Oral Tablet (Glucophage)Indicat ions:Type 2 diabetes mellitus with hemoglobin A1c goal of less than 8.0% ([facility]) TAKE 1 TABLET TWICE A DAY WITH MORNING AND EVENING MEALS 180 Tablet 3 09/10/2023 4 Discontinu ed(End of Procedure) documented as of this encounter (statuses as of 12/04/2023) Active Problems Problem Noted Date Diagnosed Date [...] as of this encounter (statuses as of 12/04/2023) Resolved Problems Problem Noted Date Diagnosed Date [...] as of this encounter (statuses as of 12/04/2023) Immunizations Name Administration Dates Next Due COVID-19 mRNA, LNP-s, No Pre serve, 2-Dose Series ([employer]) 12/25/2020,12/04/2020 COVID-19, LNP-s, No Preserve , Antione-sucrose, [...] No 06/16/2023 documented as of this encounter Progress Notes * Sarai London, [facility] - 12/04/2023 10:30 AM EDT Medication Therapy Disease Management [facility] - Diabetes Management Progress Note Anibal Maurer, identified by name and date of , is a 88 year old male being seen for diabetesmanagement/education. Patient presents for return diabetic visit. DIABETES: Current diabetic medications: Metformin 500mg, 1 tablet twice a day Trulicity 4.5 mg SQ weekly on Tuesdays DECREASE: Lantus 18 units daily GFR 48 as of 05/23/23 Medication Injection Site: Abdomen Lifestyle: Diet: unchanged Glucose Review/SMBG: Readings obtained from patient documented BG logbook Pre am Pre Am ctd Pre Am ctd 113 116 88 124 110 90 117 131 88 143 151 77 146 126 80 118 122 81 126 142 109 105 112 88 113 153 90 155 123 130 96 126 98 99 115 96 105 128 97 122 123 86 113 123 98 120 12 100 103 123 107 111 155 120 125 156 109 124 124 110 121 127 106 150 133 109 166 110 111 127 114 108 160 108 109 130 107 92 121 133 110 132 96 124 124 80 121 112 111 118 125 78 119 111 96 120 144 95 102 112 104 133 79 99 114 95 104 111 108 127 101 103 100 129 122 110 99 102 126 70 135 84 111 83 129 74 Average 120 #DIV/0! 112 #DIV/0! 104 Hi 166 0 156 0 133 Lo 79 [address]3636 0 113.42119 0 103.5625 Range 87 0 144 0 56 Overall Pre AM average: 112 Hypoglycemia: Does your blood sugar go below 70 mg/dL? No Hyperglycemia symptoms present: none Recent Labs Units 12/02/23 1336 07/29/23 0917 03/25/23 0958 HEMOGLOBIN A1C - [facility] % 8.4* 8.2* 8.6* Recent Labs Units 12/02/23 1336 07/29/23 0917 06/19/23 0510 ESTIMATED GLOMERULAR FILTRATION RATE - [facility] mL/min 43* 47* 45* CREATININE - [facility] mg/dL 1.5* 1.4* 1.5* HYPERTENSION: Patient on ACEi/ARB: no, indicated per UACR, but BP trends low BP Readings from Last 3 Encounters: 12/02/23 112/62 10/13/23 126/62 08/24/23 121/52 Blood pressure at goal: yes HYPERLIPIDEMIA: Patient is taking moderate or high intensity statin: yes HEALTH MAINTENANCE REVIEW: Health Maintenance Due Topic Date Due Depression Screening 05/18/2021 COVID-19 Vaccine ( season) 2023 ASSESSMENT & PLAN: ICD-10-CM 1. Type 2 diabetes mellitus with hemoglobin A1c goal of less than 8.0% ([facility]) E11.9 Considerations: Renal function Hypoglycemic unawareness Declines CGM due to not wanting to have to answer his phone BG Readings - Blood sugars controlled. A1c goal reasonable to move to 8.5% per pcp. Some lower readings, but improvement in his fasting readings to a little higher levels with lantus dose reduction at last visit. Medications - Reviewed current regimen, patient is adherent to regimen. Reviewed most recent PCP note- concern that patient does not have weight to lose. Will decrease trulicity dose. However, patient just received a 3 month supply of Trulicity 4.5 mg. Discussed not wanting to waste this, and so wedecided to stop metformin while pt continues at Trulicity 4.5 mg dose. Metformin has some modest weight loss potential, so maybe just this change can help patient gain a little bit of weight back. Will monitor. Otherwise, the plan is for next fill for trulicity to be for the 3 mg dose, and then restarting metformin 1 tablet daily- choosing this approach to keep BG control stable with getting less GLP. Diet, Exercise, Lifestyle - No significant lifestyle changes since last visit. Discussed with patient. Patient is agreeable to SMBG 1 time(s) daily. Patient aware to contact clinic if any hypoglycemia before next visit. MEDICATION CHANGES: yes, see below; preferred pharmacy: [facility] Medications: STOP Metformin 500mg, 1 tablet twice a day Trulicity 4.5 mg SQ weekly on Tuesdays until gone Lantus 18 units daily GFR 43 as of 12/02/23 HEALTH MAINTENANCE INTERVENTIONS: Labs: Up to Date Immunizations: Up to Date Foot Exam: Up to Date Eye Exam: Up to Date Annual Wellness Visit: Up to Date FOLLOW UP: Return to clinic in 12 weeks 03/04/2024 Sarai London [facility] Clinical Pharmacist - [facility] 12/04/2023, 10:30 AM documented in this encounter Plan of Treatment Upcoming Encounters Date Type Department Care Team (Late st Contact Info) Description 12/30/2023 11:00 AM EDT Office Visit Cardiology, [facility] [address] [facility] [place] [address] Vandana Jay CRNP [address] [facility] [place] [address] 03/03/2024 1:00 PM EDT Cardiac Studies Cardiac Studies, [facility] [address] [facility] [place] [address] 03/04/2024 9:30 AM EDT Office Visit Pharmacy, [address] [place] [address] [place], [facility] [address] [place] [address] 05/30/2024 2:40 PM EDT Office Visit [place] [address] [place] [address] Rowdy Cee MD [address] [place] [address] 06/09/2024 7:40 AM EDT Office [address] [id number] Andrea Winters MD [address] [place] [address] 08/17/2024 1:30 PM EST Cardiac Studies Cardiac Studies, [facility] [address] [place] [address] 08/17/2024 3:00 PM EST Office Visit Cardiology, [facility] [address] [place] [address] Oumar Rojas MD [address] [place] [address] Health Maintenance Due Date Last Done Comments Depression Screening 05/18/2021 05/18/2020 COVID-19 Vaccine (2022- 4 season) 2023 07/18/2021, 12/25/2020, 12/04/2020 TSH 05/29/2024 05/29/2023, 12/21, 12/02/2022, Additional history exists Zoster Vaccines Completed 06/03/2018, 02/19, 09/29/2007 Influenza Vaccine (FLU shot) Completed , 06/23/2022, 06/06/2020, Additional history exists documented as of this encounter Medical Devices Implanted Type Area Technical Research Scientist Device Identifier Shelf Expiration Date Model / Serial / Lot Lens Intraoc 19.5 - [id number] - [id number] Implanted:Qty: 1 on 01/22/2021 by Julio Cesar Alvarado MD at [facility] Left: Eye BAUSCH & LOMB 08/20/2025 [id number] / [id number] / [id number] Lens Intraoc 21.0 - [id number] - [id number] Implanted:Qty: 1 on 02/05/2021 by Julio Cesar Alvarado MD at [facility] Right: Eye BAUSCH & LOMB 08/20/2025 [id number] / [id number] / [id number] Stent Synergy Xd Mr 2.99f86qf - [id number] Implanted:Qty: 1 on 05/22/2023 by Oumar Rojas MD at [facility] [employer] [id number] 06/22/2024 [id number] / / [id number] Stent Synergy Xd Mr 2.38y25md - [id number] Implanted:Qty: 1 on 05/22/2023 by Oumar Rojas MD at [facility] [employer] [id number] 01/08/2024 [id number] / / [id number] Stent Synergy Xd Mr 3.37i70if - [id number] Implanted:Qty: 1 on 05/22/2023 by Oumar Rojas MD at [facility] [employer] [id number] 02/17/2024 [id number] 2300 / / [id number] Valve Ned 3 Ultra 23mm - [id number] Implanted:Qty: 1 on 06/16/2023 by Oumar Rojas MD at [facility] [employer] [id number] 06/26/2024 [id number] / / documented as of this encounter Visit Diagnoses Diagnosis Type 2 diabetes mellitus with hemoglobin A1c goal of less than 8.0% ([facility])- Primary documented in this encounter Advance Directives Latest [...] the patient have Health Care Power of Core Feeder? No Care Teams Inside B2B Sales Relationship Specialty Start Date End Date Andrea Winters MD [address] [place] [address] PCP - General Family Medicine 11/08/18 documented as of this encounter
--- OUTSIDE RECORDS SUMMARY | 2023-12-31 00:35 | External Medical Summary ---
Author Name Unknown Address Unknown Organization [id number]:[facility] [place] [address] [place] [address] Laboratory Report Ordering Provider Test Date Status DIONNA MCCANN 12/02/2023 13:36:29 Final Observation Date Value Abnormality Reference (Units ) Status MYCODE SPECIMEN-SST 12/02/2023 13:36:29 Freezing of extracted DNA, whole blood and/or serum. Final Performing Location LABORATORY C - [address] [place] [address]
--- OUTSIDE RECORDS SUMMARY | 2023-12-31 00:35 | External Medical Summary | Summary of Care ---
Author Name Unknown Organization [facility] Address [address] [place] [address] Phone [phone] Care Team Providers Care Deputy Sheriff Name Role Phone Andrea Winters MD Primary Care Provider [phone] Reason for Visit * Reason Comments Outpatient Testing Encounter Details Date Type Department Care Team (Late st Contact Info) Description 12/02/2023 2:00 PM EDT Laboratory Laboratory, [facility] [address] [place] [address] [facility] [address] [place] [address] [facility] Other*[id number]; Type 2 diabetes mellitus with hemoglobin A1c goal of less than 8.0% ([facility]); Dyslipidemia, goal LDL below 70; Stage 3 chronic kidney disease, unspecified whether stage 3a or 3b CKD ([facility]); termite control representative current use of anticoagulant therapy; Encounter for long-term (current) use of medications Allergies No known active allergiesdocumented as of this encounter (statuses as of 12/02/2023) Medications Medication Sig Dispensed Refills Start Date End Date Status ALCOHOL PREP PADS PADSIndications:DM type 2, not at goal ([facility]) use twice daily 200 3 10/21/2006 Active [...] hemoglobin A1c goal of less than 8.0% ([facility]) Dx 11.9 Test twice Daily 200 Strip 3 12/12/2021 Active COVID-19 mRNA Vaccine (Pfizer) 30 MCG/0.3ML Intramuscular Suspension 0 07/18/2021 Active [...] A WEEK 6 mL 3 07/20/2023 Active Apixaban 2.5 MG Oral Tablet (Eliquis)Indications :HTN, goal below 150/90,CAD S/P percutaneous coronary angioplasty,S/P TAVR (transcatheter aortic valve replacement),Severe aortic stenosis,LBBB (left bundle branch block),PAD (peripheral artery disease) ([facility]),PAF (paroxysmal atrial fibrillation) ([facility]) Take 1 Tablet by mouth in the morning and 1 Tablet before bedtime. 180 Tablet 3 08/03/2023 Active Clopidogrel Bisulfate 75 MG Oral Tablet (pLAVix) Take 1 Tablet by mouth in the morning. 90 Tablet 3 08/04/2023 Active metFORMIN HCl 500 MG Oral Tablet (Glucophage)Indicati ons:Type 2 diabetes mellitus with hemoglobin A1c goal of less than 8.0% (HCC) TAKE 1 TABLET TWICE A DAY WITH MORNING AND EVENING MEALS 180 Tablet 3 09/10/2023 Active documented as of this encounter (statuses as of 12/02/2023) Active Problems Problem Noted Date Diagnosed Date [...] as of this encounter (statuses as of 12/02/2023) Resolved Problems Problem Noted Date Diagnosed Date [...] as of this encounter (statuses as of 12/02/2023) Immunizations Name Administration Dates Next Due COVID-19 mRNA, LNP-s, No Pre serve, 2-Dose Series ([employer]) 12/25/2020,12/04/2020 COVID-19, LNP-s, No Preserve , Antione-sucrose, [...] money to buy more. Never true 06/22/20 Within the past 12 months, t he [...] No 06/16/2023 documented as of this encounter Plan of Treatment Upcoming Encounters Date Type Department Care Team (Late st Contact Info) Description 12/04/2023 10:30 AM EDT Office Visit Pharmacy, [facility] [address] [place] [address] [facility], [facility] [address] [place] [address] 12/30/2023 11:00 AM EDT Office Visit Cardiology, [facility] [address] [place] [address] Vandana Jay CRNP [address] [place] [address] 03/03/2024 1:00 PM EDT Cardiac Studies Cardiac Studies, [facility] [address] [place] [address] 05/30/2024 2:40 PM EDT Office Visit Nephrology, [facility] [address] [facility] [place] [address] Rowdy Cee MD [address] [facility] [place] [address] 06/09/2024 7:40 AM EDT Office Visit Family [facility], [facility] [address] [place] [phone] Andrea Winters MD [address] [place] [address] 08/17/2024 1:30 PM EST Cardiac Studies [facility], [facility] [address] [facility] [address] 08/17/2024 3:00 PM EST Office Visit Cardiology, [facility] [address] [place] [address] Oumar Rojas MD [address] [place] [address] Pending Results Name Type Priority Associated Diagnoses Date /Time MYCODE SUBSEQUENT ADULT Lab Routine [facility] [employer] Other*[id number] 12/02/2023 1:36 PM EDT HEMOGLOBIN A1C Lab Routine Type 2 diabetes mellitus with hemoglobin A1c goal of less than 8.0% ([facility]) 12/02/2023 1:36 PM EDT LIPID PANEL WITH DIRECT LDL IF TG IS HIGH Lab Routine Dyslipidemia, goal LDL below 70 12/02/2023 1:36 PM EDT RENAL FUNCTION PANEL Lab Routine Stage 3 chronic kidney disease, unspecified whether stage 3a or 3b CKD ([facility]) 12/02/2023 1:36 PM EDT CBC Lab Routine FDC current use of anticoagulant therapy 12/02/2023 1:36 PM EDT VITAMIN B12 Lab Routine Encounter for long-term (current) use of medications 12/02/2023 1:36 PM EDT MYCODE SST1 Lab Routine [employer] Other*[id number] 12/02/2023 1:36 PM EDT MYCODE SST2 Lab Routine [employer] Other*[id number] 12/02/2023 1:36 PM EDT Health Maintenance Due Date Last Done Comments Depression Screening 05/18/2021 05/18/2020 COVID-19 Vaccine (2022-10 4 season) 2023 07/18/2021, 12/25/2020, 12/04/2020 TSH 05/29/2024 05/29/2023, 12/21, 12/02/2022, Additional history exists Zoster Vaccines Completed 06/03/2018, 02/19, 09/29/2007 Influenza Vaccine (FLU shot) Completed , 06/23/2022, 06/06/2020, Additional history exists documented as of this encounter Medical Devices Implanted Type Area Labor Contract Analyst Device Identifier Shelf Expiration Date Model / Serial / Lot Lens Intraoc 19.5 - [id number] - [id number] Implanted:Qty: 1 on 01/22/2021 by Julio Cesar Alvarado MD at [facility] Left: Eye [employer]OM[employer] 08/20/2025 [id number] / [id number] / [id number] Lens Intraoc 21.0 - [id number] - [id number] Implanted:Qty: 1 on 02/05/2021 by Julio Cesar Alvarado MD at [facility] Right: Eye BAUSCH & LOMB 08/20/2025 [id number] / [id number] / [id number] Stent Synergy Xd Mr 2.91y61pm - [id number] Implanted:Qty: 1 on 05/22/2023 by Oumar Rojas MD at [facility] [place] [id number] 06/22/2024 [id number] 0250 / / [id number] Stent Synergy Xd Mr 2.44e51au - [id number] Implanted:Qty: 1 on 05/22/2023 by Oumar Rojas MD at [facility] [place] [id number] 01/08/2024 [id number] 4250 / / [id number] Stent Synergy Xd Mr 3.34k31pc - [id number] Implanted:Qty: 1 on 05/22/2023 by Oumar Rojas MD at [facility] [place] [id number] 02/17/2024 [id number] 2300 / / [id number] Valve Ned 3 Ultra 23mm - [id number] Implanted:Qty: 1 on 06/16/2023 by Oumar Rojas MD at [facility] [employer] [id number] 06/26/2024 [id number] / / documented as of this encounter Visit Diagnoses Diagnosis [facility] Other*[id number] Type 2 diabetes mellitus with hemoglobin A1c goal of less than 8.0% (HCC) Dyslipidemia, goal LDL below 70 Other and unspecified hyperlipidemia Stage 3 chronic kidney disease, unspecified whether stage 3a or 3b CKD (HCC) termite control representative current use of anticoagulant therapy Encounter for long-term (current) use of medications Encounter for long-term (current) use of other medications documented in this encounter Advance Directives Latest [...] the patient have Health Care Power of Software Applications Developer? No Care Teams Deputy Sheriff Relationship Specialty Start Date End Date Andrea Winters MD [address] [place] [facility] [address] PCP - General Family Medicine 11/08/18 documented as of this encounter
--- OUTSIDE RECORDS SUMMARY | 2023-12-31 00:35 | External Medical Summary ---
Author Name Unknown Address Unknown Organization K01:[facility]ORY [facility] [place] - [address] [facility] [address] Laboratory Report Ordering Provider Test Date Status VAL DIAZ 12/02/2023 13:36:29 Final Observation Date Value Abnormality Reference (Units ) Status HbA1C 12/02/2023 13:36:29 8.4 Above high normal 4. 0-5.6 (%) Final The use of HbA1c to monitor glycemic status is based on normal hemoglobin and HbA composition. This test should not be used in patients with abnormal hemoglobin that affects the half life of the red blood cell or the in vivo glycation rates. Glucose, estimated average 12/02/2023 13:36:29 194 Above high normal <126 (mg/dL) Jorge valdez Performing Location LABORATORY [facility] - [address] [facility] [address]
--- OUTSIDE RECORDS SUMMARY | 2023-12-31 00:35 | External Medical Summary | Summary of Care ---
Author Name Unknown Organization [facility] Address [address] [place] [address] Phone [phone] Care Team Providers Care Chuck Boner Name Role Phone Emily Winters MD Primary Care Provider [phone] Reason for Visit * Reason Comments eRx-Medication Refill Encounter Details Date Type Department Care Team (Late st Contact Info) Description 12/09/2023 Refill [facility] [address] [place] [address] Emily Winters MD [address] [place] [address] Allergies No known active allergiesdocumented as of this encounter (statuses as of 12/09/2023) Medications Medication Sig Dispensed Refills Start Date End Date Status ALCOHOL PREP PADS PADSIndications:DM type 2, not at goal ([facility]) use twice daily 200 3 7 Active Cholecalciferol (VITAMIN D-3) 1000 units CapsuleIndications: taking one daily thursday, thursday and thursday Take 1 Capsule by mouth in the morning. 0 8 Active NovoFine 32G X 6 MM (NOVOFINE 32G PEN NEEDLE) USE ONCE DAILY WITH LANTUS 100 Each 3 1 Active FreeStyle Lite Test In Vitro Strip (Glucose Blood)Indications:T ype 2 diabetes mellitus with hemoglobin A1c goal of less than 8.0% ([facility]) Dx 11.9 Test twice Daily 200 Strip 3 2 Active COVID-19 mRNA Vaccine (Socitive) 30 MCG/0.3ML Intramuscular Suspension 0 1 Active FreeStyle Lite Test In Vitro Strip (Glucose Blood) USE TWICE A DAY 200 Strip 1 3 Active Levothyroxine Sodium 88 MCG Oral Tablet (Levoxyl)Indication s:Acquired hypothyroidism Take 1 Tablet by mouth in the morning. (at least 30 min prior to breakfast or other meds). 90 Tablet 3 3 Active Insulin Glargine Solostar 100 UNIT/ML Subcutaneous Solution Pen-injector (Lantus SoloStar) INJECT 20 UNITS UNDER THE SKIN ONCE DAILY 30 mL 3 3 Active Atorvastatin Calcium 40 MG Oral Tablet (Lipitor) Take 1 Tablet by mouth every afternoon. Do not start before May 23, 2023. 90 Tablet 3 3 Active Additional Information Patient taking differently:40 mg OralHS, Reported on 10/13/2023 hydroCHLOROthiazide 25 MG Oral Tablet (Hydrodiuril)Indica tions:HTN, goal below 150/90,Stage 3b chronic kidney disease (HCC),Hyperkalemia, HTN, goal below 140/90 TAKE 1 TABLET DAILY 90 Tablet 3 3 Active Trulicity 4.5 MG/0.5ML Subcutaneous Solution Pen-injector (Dulaglutide) INJECT THE CONTENTS OF 1 PEN (4.5 MG) UNDER THE SKIN ONCE A WEEK 6 mL 3 3 Active Additional Information Patient taking differently: INJECT [...] (left bundle branch block),PAD (peripheral artery disease) ([facility]),PAF (paroxysmal atrial fibrillation) ([facility]) Take 1 Tablet by mouth in the morning and 1 Tablet before bedtime. 180 Tablet 3 3 Active Clopidogrel Bisulfate 75 MG Oral Tablet (pLAVix) Take 1 Tablet by mouth in the morning. 90 Tablet 3 3 Active Lancing DeviceIndications:T ype 2 diabetes mellitus with hemoglobin A1c goal of less than 8.0% ([facility]) Use to check blood sugars once daily E 11.9 1 Each 0 4 Active Lancets 33GIndications:Type 2 diabetes mellitus with hemoglobin A1c goal of less than 8.0% ([facility]) Use as directed. Check blood sugars once daily E 11.9 100 Each 1 4 Active amLODIPine Besylate 10 MG Oral Tablet (Norvasc) TAKE 1 TABLET DAILY 90 Tablet 3 4 Active amLODIPine Besylate 10 MG Oral Tablet (Norvasc) Take 1 Tablet by mouth daily. 90 Tablet 2 3 12/09/19 24 Discontinued documented as of this encounter (statuses as of 12/09/2023) Active Problems Problem Noted Date Diagnosed Date [...] as of this encounter (statuses as of 12/09/2023) Resolved Problems Problem Noted Date Diagnosed Date [...] as of this encounter (statuses as of 12/09/2023) Immunizations Name Administration Dates Next Due COVID-19 mRNA, LNP-s, No Pre serve, 2-Dose Series (Socitive) 12/25/2020,12/04/2020 COVID-19, LNP-s, No Preserve , Antione-sucrose, [...] (15 years old or older) No 06/16/20 23 Cognitive Status Response Date of Assessm ent Because of a physical, menta l, or emotional condition, do you have serious difficulty concentrating, remembering, or making decisions? (5 years old or older) No 06/16/2023 documented as of this encounter Miscellaneous Notes * Telephone Encounter - Jada French [facility] - 12/09/2023 3:57 PM EDT Signed Prescriptions: Disp Refills amLODIPine Besylate 10 MG Oral Tablet (Nor*90 Tab*3 Sig: TAKE 1TABLET DAILYAuthorizing Provider: EMILY WINTERS User: JADA FRENCH documented in this encounter Plan of Treatment Upcoming Encounters Date Type Department Care Team (Late st Contact Info) Description 12/30/2023 11:00 AM EDT Office Visit Cardiology, [facility] [address] [facility] [place] [address] Vandana Jay CRNP [address] [facility] [place] [address] 03/03/2024 1:00 PM EDT Cardiac Studies Cardiac Studies, [facility] [address] [facility] [place] [address] 03/04/2024 9:30 AM EDT [facility] [place] [address] [facility] [address] [place] [address] [facility] [address] 05/30/2024 2:40 PM EDT Office Visit Nephrology, [facility] [address] [facility] [place] [address] Rowdy Cee MD [address] [place], [place] [address] 06/09/2024 7:40 AM EDT Office Visit [facility] [address] [place] [phone] Emily Winters MD [address] [place] [address] 08/17/2024 1:30 PM EST Cardiac Studies Cardiac Studies, [facility] [address] [place] [address] 08/17/2024 3:00 PM EST Office Visit Cardiology, [facility] [address] [place] [address] Oumar Rojas MD [address] [place], [place] [id number] Health Maintenance Due Date Last Done Comments Depression Screening 05/18/2021 05/18/2020 COVID-19 Vaccine (2022-2 4 season) 2023 07/18/2021, 12/25/2020, 12/04/2020 TSH 05/29/2024 05/29/2023, 12/21, 12/02/2022, Additional history exists Zoster Vaccines Completed 06/03/2018, 02/19, 09/29/2007 Influenza Vaccine (FLU shot) Completed , 06/23/2022, 06/06/2020, Additional history exists documented as of this encounter Medical Devices Implanted Type Area Machined Parts Quality Inspector Device Identifier Shelf Expiration Date Model / Serial / Lot Lens Intraoc 19.5 - [id number] - [id number] Implanted:Qty: 1 on 01/22/2021 by Julio Cesar Alvarado MD at OR [facility] Left: Eye [employer] 08/20/2025 [id number] / [id number] / [id number] Lens Intraoc 21.0 - [id number] - [id number] Implanted:Qty: 1 on 02/05/2021 by Julio Cesar Alvarado MD at [facility] Right: Eye [employer] 08/20/2025 [id number] / [id number] / [id number] Stent Synergy Xd Mr 2.76z28sc - [id number] Implanted:Qty: 1 on 05/22/2023 by Oumar Rojas MD at [facility] [place] [employer] [id number] 06/22/2024 [id number] / / [id number] Stent Synergy Xd Mr 2.81g25dd - [id number] Implanted:Qty: 1 on 05/22/2023 by Oumar Rojas MD at [facility] [place] [employer] [id number] 01/08/2024 [id number] / / [id number] Stent Synergy Xd Mr 3.42t13ol - [id number] Implanted:Qty: 1 on 05/22/2023 by Oumar Rojas MD at [facility] [place] [employer] [id number] 02/17/2024 [id number] 2300 / / [id number] Valve Ned 3 Ultra 23mm - [id number] Implanted:Qty: 1 on 06/16/2023 by Oumar Rojas MD at [facility] [place] [employer] [id number] 06/26/2024 [id number] / / documented as of this encounter Advance Directives Latest Code Status [...] the patient have Health Care Power of Mail Processing Machine Operator? No Care Teams Chuck Boner Relationship Specialty Start Date End Date Emily Winters MD [address] [place] [address] PCP - General Family Medicine 11/08/18 documented as of this encounter
--- OUTSIDE RECORDS SUMMARY | 2023-12-31 00:35 | External Medical Summary ---
Author Name Unknown Address Unknown Organization [id number]:[place] [place] [address] [place] [address] Laboratory Report Ordering Provider Test Date Status DIONNA MCCANN 12/02/2023 13:36:29 Final Observation Date Value Abnormality Reference (Units ) Status MYCODE SPECIMEN-SST 12/02/2023 13:36:29 Freezing of extracted DNA, whole blood and/or serum. Final Performing Location LABORATORY C - [address] [place] [address]
--- OUTSIDE RECORDS SUMMARY | 2023-12-31 00:35 | External Medical Summary ---
Author Name Unknown Address Unknown Organization [id number]:LABORATORY [facility] [place] - [address] [facility] [address] Laboratory Report Ordering Provider Test Date Status VAL DIAZ 12/02/2023 13:36:29 Final Observation Date Value Abnormality Reference (Units ) Status Triglyceride 12/02/2023 13:36:29 111 <=174 ( mg/dL) Final Triglyceride Reference Range s (mg/dL):
<150 Acceptable
150-174 Borderline high
175-499 High
>=500 Very high Cholesterol 12/02/2023 13:36:29 97 <200 (mg /dL) Final Total Cholesterol Reference Ranges (mg/dL):
<200 Desirable
200-239 Borderline high
>=240 High HDL 12/02/2023 13:36:29 45 >39 (mg/dL ) Final HDL Cholesterol Reference Ra nges (mg/dL):
>=60 High (Desirable)
<50 Low (Undesirable) For Females
<40 Low (Undesirable) For Males NON-HDL CHOLESTEROL 12/02/2023 13:36:29 52 <=159 (mg/dL) Final Non-HDL Cholesterol Referenc e Range (mg/dL):
<100 Target level for high risk ASCVD patient
<130 Optimal for general population
130-159 Near optimal for general population
160-189 Borderline High
190-219 High
>=220 Very High LDL, (calculated) 12/02/2023 13:36:29 30 <= 129 (mg/dL) Final LDL Cholesterol Reference Ra nges (mg/dL):
<70 Target level for high risk ASCVD patient
<100 Optimal for general population
100-129 Near optimal for general population
130-159 Borderline high
160-189 High
>=190 Very high Performing Location LABORATORY [facility] [place] - [address] [facility] [address]
--- OUTSIDE RECORDS SUMMARY | 2023-12-31 00:36 | External Medical Summary ---
Author Name Unknown Address Unknown Organization K01[place] [facility] [place] [facility] [address] [place] [address] Laboratory Report Ordering Provider Test Date Status VAL DIAZ 12/02/2023 13:36:29 Final Observation Date Value Abnormality Reference (Units ) Status BUN 12/02/2023 13:36:29 27 Above high normal 6-20 (mg/dL) Final Creatinine 12/02/2023 13:36:29 1.5 Above high normal 0.6-1.2 (mg/dL) Final Glomerular filtration rate/1.73 sq M.predicted [Volume Rate/Area] in Serum, Plasma or Blood by Creatinine-based formula (CKD-EPI) 12/02/2023 13:36:29 43 Below low normal >=60 (mL/min) Final eGFR is calculated based on the CKD-EPI 2020 equation SODIUM 12/02/2023 13:36:29 137 135-146 (m mol/L) Final Potassium 12/02/2023 13:36:29 4.7 3.5-5.1 (m mol/L) Final Cl 12/02/2023 13:36:29 99 98-107 (mm ol/L) Final CO2 12/02/2023 13:36:29 25 22-32 (mmo l/L) Final Anion gap 12/02/2023 13:36:29 13 7-15 (mmol /L) Final Glucose 12/02/2023 13:36:29 249 Above high normal 70 -120 (mg/dL) Final Calcium 12/02/2023 13:36:29 10.3 Above high normal 8. 4-10.2 (mg/dL) Final Albumin 12/02/2023 13:36:29 4.1 3.8-5.0 (g /dL) Final Phosphate 12/02/2023 13:36:29 4.5 2.5-4.8 (m g/dL) Final Performing Location LABORATORY C - [address] [place] [address]
--- OUTSIDE RECORDS SUMMARY | 2023-12-31 00:36 | External Medical Summary | Summary of Care ---
Author Name Unknown Organization [facility] Address [address] [place] [address] Phone [phone] Care Team Providers Care Clean Up Supervisor Name Role Phone Andrea Winters MD Primary Care Provider [phone] Reason for Visit * Reason Comments Follow Up Encounter Details Date Type Department Care Team (Late st Contact Info) Description 10/13/2023 3:30 PM EST Office Visit Cardiology, [facility] [address] [facility] [place] [address] Vandana Martin CRNP [address] [facility] [address] PAF (paroxysmal atrial fibrillation) ([facility])*; LBBB (left bundle branch block); S/P TAVR (transcatheter aortic valve replacement); CAD S/P percutaneous coronary angioplasty; HTN, goal below 140/90; Dyslipidemia, goal LDL below 70 Allergies No known active allergiesdocumented as of this encounter (statuses as of 10/27/2023) Medications Medication Sig Dispensed Refills Start Date End Date Status ALCOHOL PREP PADS PADSIndications:DM type 2, not at goal ([facility]) use twice daily 200 3 10/21/2006 [...] hemoglobin A1c goal of less than 8.0% ([facility]) Dx 11.9 Test twice Daily 200 Strip 3 12/12/2021 Active COVID-19 mRNA Vaccine ([employer]) 30 MCG/0.3ML Intramuscular Suspension 0 07/18/2021 Active [...] (left bundle branch block),PAD (peripheral artery disease) ([facility]),PAF (paroxysmal atrial fibrillation) ([facility]) Take 1 Tablet by mouth in [...] as of this encounter (statuses as of 10/27/2023) Active Problems Problem Noted Date Diagnosed Date [...] as of this encounter (statuses as of 10/27/2023) Resolved Problems Problem Noted Date Diagnosed Date [...] as of this encounter (statuses as of 10/27/2023) Immunizations Name Administration Dates Next Due COVID-19 mRNA, LNP-s, No Pre serve, 2-Dose Series ([employer]) 12/25/2020,12/04/2020 COVID-19, LNP-s, No Preserve , Antione-sucrose, Ages 12+ ([employer]) 07/18/2021 Pneumococcal Conjugate Vacc, 13 Valent (Prevnar) [...] Date Smoking Tobacco: Former Cigarettes 1 25 Q uit: 09/21/1983 Passive Smoke Exposure: Past Smokeless Tobacco: [...] on file documented as of this encounter Last Filed Vital Signs Vital Sign Reading Time Taken Comments Blood Pressure 126/62 10/13/2023 3:59 PM EST Pulse 80 10/13/2023 3:59 PM EST Temperature - - Respiratory Rate 14 10/13/2023 3:59 PM EST Oxygen Saturation - - Inhaled Oxygen Concentration - - Weight 69.4 kg (153 lb) 10/13/2023 3:59 PM EST Height - - Body Mass Index 25.46 06/16/2023 5:01 PM EDT documented in this encounter Functional Status Functional Status Response [...] No 06/16/2023 documented as of this encounter Patient Instructions * Patient Instructions* Vandana Martin CRNP - 10/13/2023 4:14 PM EST Discussed possible symptoms of low heart rates to look out for which may included lightheadedness, dizziness, increased fatigue, generalized weakness, leg heaviness documented in this encounter Progress Notes * Marina Rios DO - 10/27/2023 11:16 AM EST I have reviewed the advanced practitioner's documentation on the date of service referenced in note, and I agree with, and take responsibility for the plan of care. Pt sen in rotuine 2 month EP f/u due to post TAVR LBBB He presents with his today He has been feeling well; but does have some SOB with exertion however it sounds like he does more than he should for his age No indication for ppm at this juncture -We discussed possible symptoms of bradycardia to look out for which may included lightheadedness, dizziness, increased fatigue, generalized weakness, SOB/ISABEL then reach out to see me sooner EP f/u 1 year as he has f/u with valve clinic and general cardiology inbetween then Marina Rios DO Department of Cardiology [facility] [place] [address] documented in this encounter Nursing Notes * Ngoc Keith LPN - 10/13/2023 4:02 PM EST Examination Room: 17 Name: Anibal Maurer Date of : 1935 Reason for Visit: Follow up Problems/Concerns: denies Interim Hosp(s): denies Chest Pain/SOB: denies MyChart Discussed: ALREADY ACTIVE Patient was instructed to not get up on the exam table until directed and assisted by their provider; patient is to remain seated in the chair/ wheelchair/ exam table for fall prevention and safety reasons. Patient is aware staff will assist stepping down off exam table with personnel. documented in this encounter Plan of Treatment Upcoming Encounters Date Type Department Care Team (Late st Contact Info) Description 12/04/2023 9:40 AM EDT Office Visit [facility] [address] [place] [address] Andrea Winters MD [address] [place] [address] 12/04/2023 10:30 AM EDT [facility] [address] [place] [address] [facility] [address] [place] [address] 12/30/2023 11:00 AM EDT Office Visit [facility], [facility] [address] Vandana Jay CRNP [address] [facility] [place] [address] 03/03/2024 1:00 PM EDT Cardiac Studies Cardiac Studies, [facility] [address] [facility] [place] [address] 05/30/2024 2:40 PM EDT Office Visit Nephrology, [facility] [address] [place] [address] Rowdy Cee MD [address] [place] [address] 08/17/2024 1:30 PM EST Cardiac Studies Cardiac Studies, [facility] [address] [facility] [address] 08/17/2024 3:00 PM EST Office Visit Cardiology, [facility] [address] [facility] [address] Oumar Rojas MD [address] [place] [address] Health Maintenance Due Date Last Done Comments Depression Screening 05/18/2021 05/18/2020 COVID-19 Vaccine (2022-10 4 season) 2023 07/18/2021, 12/25/2020, 12/04/2020 TSH 05/29/2024 05/29/2023, 12/21, 12/02/2022, Additional history exists Zoster Vaccines Completed 06/03/2018, 02/19, 09/29/2007 Influenza Vaccine (FLU shot) Completed , 06/23/2022, 06/06/2020, Additional history exists documented as of this encounter Medical Devices Implanted Type Area Asphalt Surface Heater Operator Device Identifier Shelf Expiration Date Model / Serial / Lot Lens Intraoc 19.5 - [id number] - [id number] Implanted:Qty: 1 on 01/22/2021 by Julio Cesar Alvarado MD at OR [facility] Left: Eye [employer] 08/20/2025 [id number] / [id number] / [id number] Lens Intraoc 21.0 - [id number] - [id number] Implanted:Qty: 1 on 02/05/2021 by Julio Cesar Alvarado MD at OR [facility] Right: Eye [employer] 08/20/2025 [id number] / [id number] / [id number] Stent Synergy Xd Mr 3.85y89ue - [id number] Implanted:Qty: 1 on 05/22/2023 by Oumar Rojas [place] [facility] [place] [employer] [id number] 02/17/2024 [id number] / / [id number] Valve Ned 3 Ultra 23mm - [id number] Implanted:Qty: 1 on 06/16/2023 by Oumar Rojas [place] [facility] [place] [employer] [id number] 06/26/2024 [id number] / / documented as of this encounter Visit Diagnoses Diagnosis PAF (paroxysmal atrial fibrillation) (HCC)- Primary Atrial fibrillation LBBB (left bundle branch block) Other left bundle branch block S/P TAVR (transcatheter aortic valve replacement) Heart valve replaced by other means CAD S/P percutaneous coronary angioplasty Coronary atherosclerosis of [place] coronary artery HTN, goal below 140/90 Unspecified essential hypertension Dyslipidemia, goal LDL below 70 Other and unspecified hyperlipidemia documented in this encounter Advance Directives Latest [...] the patient have Health Care Power of In Tube Conversion Technician? No Care Teams Clean Up Supervisor Relationship Specialty Start Date End Date Andrea Wintesr MD [address] [place] [address] PCP - General Family Medicine 11/08/18 documented as of this encounter
--- OUTSIDE RECORDS SUMMARY | 2023-12-31 00:36 | External Medical Summary ---
Author Name Unknown Address Unknown Organization K01:[place] [facility] [place] [address] [address] Laboratory Report Ordering Provider Test Date Status VAL DIAZ 12/02/2023 13:36:29 Final Observation Date Value Abnormality Reference (Units ) Status Vitamin B12 12/02/2023 13:36:29 599 116-5361 (pg/mL) Final Performing Location LABORATORY [facility] - [address] [place] [address]
--- OUTSIDE RECORDS SUMMARY | 2023-12-31 00:36 | External Medical Summary | Summary of Care ---
Author Name Unknown Organization [facility] Address [address] [place] [address] Phone [phone] Care Team Providers Care Facing Machine Operator Name Role Phone Andrea Winters MD Primary Care Provider [phone] Reason for Referral * Precert (Within 10 days (routine)) - Authorized Specialty Diagnoses / Procedures Referred By Contac t Referred To Contact Cardiac Studies Diagnoses S/P TAVR (transcatheter aortic valve replacement) Procedures ECHO, COMPLETE (2D), TRANS-THORACIC Vandana Jay CRNP [address] [place] [address] Referral ID Status Reason Start Date Expiration Date V isits Requested Visits Authorized [id number] Authorized Precert 03/05/2024 999 999 Reason for Visit * Reason Onset Date Comments Test Results 09/04/2023 Encounter Details Date Type Department Care Team (Late st Contact Info) Description 09/04/2023 Telephone Cardiology, [facility] [address] [place] [address] Vandana Jay CRNP [address] [place], [place] [id number] Test Results (/) Allergies No known active allergiesdocumented as of this encounter (statuses as of 10/02/2023) Medications Medication Sig Dispensed Refills Start Date End Date Status ALCOHOL PREP PADS PADSIndications:DM type 2, not at goal ([facility]) use twice daily 200 3 10/21/2006 Active [...] hemoglobin A1c goal of less than 8.0% ([facility]) Dx 11.9 Test twice Daily 200 Strip 3 12/12/2021 Active COVID-19 mRNA Vaccine ([facility]) 30 MCG/0.3ML Intramuscular Suspension 0 07/18/2021 Active [...] 23, 2023. 90 Tablet 3 05/23/2023 Active hydroCHLOROthiazide 25 MG Oral Tablet (Hydrodiuril)Indica tions:HTN, goal below 150/90,Stage 3b chronic kidney disease (HCC),Hyperkalemia, HTN, goal below 140/90 TAKE 1 TABLET DAILY 90 Tablet 3 06/22/2023 Active Trulicity 4.5 MG/0.5ML Subcutaneous Solution Pen-injector (Dulaglutide) INJECT THE CONTENTS OF 1 PEN (4.5 MG) UNDER THE SKIN ONCE A WEEK 6 mL 3 07/20/2023 Active Apixaban 2.5 MG Oral Tablet (Eliquis)Indication s:HTN, goal below 150/90,CAD S/P percutaneous coronary angioplasty,S/P TAVR (transcatheter aortic valve replacement),Severe aortic stenosis,LBBB (left bundle branch block),PAD (peripheral artery disease) ([facility]),PAF (paroxysmal atrial fibrillation) ([facility]) Take 1 Tablet by mouth in the morning and 1 Tablet before bedtime. 180 Tablet 3 08/03/2023 Active Clopidogrel Bisulfate 75 MG Oral Tablet (pLAVix) Take 1 Tablet by mouth in the morning. 90 Tablet 3 08/04/2023 Active metFORMIN HCl 500 MG Oral Tablet (Glucophage)Indicat ions:Type 2 diabetes mellitus with hemoglobin A1c goal of less than 8.0% ([facility]) TAKE 1 TABLET TWICE A DAY WITH MORNING AND EVENING MEALS 180 Tablet 3 07/28/2022 09/10/20 23 Discontinued documented as of this encounter (statuses as of 10/02/2023) Active Problems Problem Noted Date Diagnosed Date [...] as of this encounter (statuses as of 10/02/2023) Resolved Problems Problem Noted Date Diagnosed Date [...] as of this encounter (statuses as of 10/02/2023) Immunizations Name Administration Dates Next Due COVID-19 mRNA, LNP-s, No Pre serve, 2-Dose Series ([facility]) 12/25/2020,12/04/2020 COVID-19, LNP-s, No Preserve , Antione-sucrose, [...] encounter Miscellaneous Notes * Telephone Encounter - Sonia Waddell RN - 09/04/2023 12:29 PM EST MyChart sent with results/recommendations. Orders placed for 6 month repeat study. * Telephone Encounter - Sonia Waddell RN - 09/04/2023 12:27 PM EST ----- Message from AMARJIT Helms sent at 09/03/2023 12:56 PM EST ----- EF normal. TAVR gradients stable. Mild paravalvular aortic valve prosthesis regurgitation is present. Recommend repeat echo in 6 months to reassess TAVR gradients/regurgitation. documented in this encounter Plan of Treatment Upcoming Encounters Date Type Department Care Team (Late st Contact Info) Description 10/13/2023 3:30 PM EST Office Visit Cardiology, [facility] [address] [facility] [place] [address] Vandana Martin CRNP [address] [place] [address] [place] [phone] 12/04/2023 9:40 AM EDT [facility] [address] [facility] [facility] [phone] [facility]ters [facility] [address] [facility] [address] 12/04/2023 10:30 AM EDT [facility] [place] [address] [facility] [address] [address] [facility] [address] [facility] [facility] [address] 12/30/2023 11:00 AM EDT Office Visit Cardiology, [facility] [address] [place] [address] Vandana Jay CRNP [address] [place] [address] 03/03/2024 1:00 PM EDT Cardiac Studies Cardiac Studies, [facility] [address] [facility] [address] 05/30/2024 2:40 PM EDT Office Visit Nephrology, [facility] [address] [place] [address] Rowdy Cee MD [address] [place] [address] 08/17/2024 1:30 PM EST Cardiac Studies Cardiac Studies, [facility] [address] [facility] [place] [address] 08/17/2024 3:00 PM EST Office Visit Cardiology, [address] [address] Oumar Rojas MD [address] [place] [address] Scheduled Orders Name Type Priority Associated Diagnoses Orde r Schedule ECHO, COMPLETE (2D), TRANS-THORACIC Echocardiology Routine S/P TAVR (transcatheter aortic valve replacement) Expected: 03/05/2024 (Approximate), Expires: 10/05/2025 Health Maintenance Due Date Last Done Comments Depression Screening 05/18/2021 05/18/2020 COVID-19 Vaccine (4 - 3-2 4 season) 2023 07/18/2021, 12/25/2020, 12/04/2020 TSH 05/29/2024 05/29/2023, 12/21, 12/02/2022, Additional history exists Zoster Vaccines Completed 06/03/2018, 02/19, 09/29/2007 Influenza Vaccine (FLU shot) Completed , 06/23/2022, 06/06/2020, Additional history exists documented as of this encounter Medical Devices Implanted Type Area Insurance Advisor Device Identifier Shelf Expiration Date Model / Serial / Lot Lens Intraoc 19.5 - [id number] - [id number] Implanted:Qty: 1 on 01/22/2021 by Julio Cesar Alvarado MD at [facility] Left: Eye [employer] 08/20/2025 [id number] / [id number] / [id number] Lens Intraoc 21.0 - [id number] - [id number] Implanted:Qty: 1 on 02/05/2021 by Julio Cesar Alvarado MD at [facility] Right: Eye [employer] 08/20/2025 [id number] / [id number] / [id number] Stent Synergy Xd Mr 3.54f63ve - [id number] Implanted:Qty: 1 on 05/22/2023 by Oumar Rojas [place] [facility] [place] [employer] [id number] 02/17/2024 [id number] / / [id number] Valve Ned 3 Ultra 23mm - [id number] Implanted:Qty: 1 on 06/16/2023 by Oumar Rojas [place] [facility] [employer] [id number] 06/26/2024 [id number] / / documented as of this encounter Visit Diagnoses Diagnosis S/P TAVR (transcatheter aortic valve replacement)- Primary Heart valve replaced by other means documented in this encounter Advance Directives Latest [...] the patient have Health Care Power of Infectious Waste Technician? No Care Teams Facing Machine Operator Relationship Specialty Start Date End Date Andrea Winters MD [address] [place] [address] PCP - General Family Medicine 11/08/18 documented as of this encounter
--- OUTSIDE RECORDS SUMMARY | 2023-12-31 00:36 | External Medical Summary | Summary of Care ---
Author Name Unknown Organization [facility] Address [address] [place] [address] Phone [phone] Care Team Providers Care Block Greaser Name Role Phone Andrea Winters MD Primary Care Provider [phone] Reason for Visit * Reason Comments Consultation Encounter Details Date Type Department Care Team (Late st Contact Info) Description 08/11/2023 3:15 PM EST Office Visit Cardiology, [facility] [address] [facility] JESS[place] VANEGAS [id number] Marina Rios, [address] [facility] JESSICA MEDINA [phone] PAF (paroxysmal atrial fibrillation) ([facility])*; LBBB (left bundle branch block); S/P TAVR (transcatheter aortic valve replacement); Coronary artery disease involving tlingit & haida coronary artery of tlingit & haida heart without angina pectoris Allergies No known active allergiesdocumented as of this encounter (statuses as of 09/15/2023) Medications Medication Sig Dispensed Refills Start Date End Date Status ALCOHOL PREP PADS PADSIndications:DM type 2, not at goal ([facility]) use twice daily 200 3 10/21/2006 Active [...] hemoglobin A1c goal of less than 8.0% ([facility]) Dx 11.9 Test twice Daily 200 Strip 3 12/12/2021 Active COVID-19 mRNA Vaccine ([employer]) 30 MCG/0.3ML Intramuscular Suspension 0 07/18/2021 Active [...] (left bundle branch block),PAD (peripheral artery disease) ([facility]),PAF (paroxysmal atrial fibrillation) ([facility]) Take 1 Tablet by mouth in the [...] as of this encounter (statuses as of 09/15/2023) Active Problems Problem Noted Date Diagnosed Date [...] as of this encounter (statuses as of 09/15/2023) Resolved Problems Problem Noted Date Diagnosed Date [...] as of this encounter (statuses as of 09/15/2023) Immunizations Name Administration Dates Next Due COVID-19 mRNA, LNP-s, No Pre serve, 2-Dose Series ([employer]) 12/25/2020,12/04/2020 COVID-19, LNP-s, No Preserve , [...] Sign Reading Time Taken Comments Blood Pressure 128/72 08/11/2023 9:38 AM EST Pulse 64 08/11/2023 9:38 AM EST Temperature - - Respiratory Rate 18 08/11/2023 9:38 AM EST Oxygen Saturation - - Inhaled Oxygen Concentration - - Weight 70.1 kg (154 lb 9.6 oz) 08/11/2023 9:38 A M EST Height - - Body Mass Index 25.73 06/16/2023 5:01 PM EDT documented in this [...] as of this encounter Progress Notes * Marina Rios, DO - 08/11/2023 9:45 AM EST Subjective Anibal Maurer is a 88 year old male. Chief Complaint Patient presents with Consultation Pt referred to EP due to LBBB post TAVR Referring Provider: Evens Valentin Cardiac Problems: Severe s/p TAVR 06/16/2023 Post TAVR LBBB CAD prox-mid RCA heavily calcified 95% got PCI 05/2023 PAD 80% RFA s/p shock wave lithotripsy of left common iliac and external iliac artery 06/16/2023 pAF seen on zio 06/28/2023 on eliquis 2.5mg BID [id number] (age, CAD, HTN, DM) HTN HLD DM Hypothryoidism HPI: Pt presents with his today Pt says he never had much symptoms before the TAVR so feels fine still now As per his pt gets played out when cleaning the house Pt is doing cardiac rehab and at times with the cycle machine he gets some leg pain but he has no claudication with walking Pt denies any chest pain, SOB/ISABEL, palpitations, lightheadedness, dizziness, near syncopal episodes, lower extremity edema,orthopnea, no change in activity level or unexplained weight changes. PMH: Patient Active Problem List Diagnosis Code Trigger finger M65.30 Hypothyroidism E03.9 ADVANCE DIRECTIVE INFORMATION Kidney disease, chronic, stage III (GFR 30-59 ml/min) ([facility]) N18.30 Dyslipidemia, goal LDL below 70 E78.5 Vitamin D deficiency E55.9 Type 2 diabetes mellitus with hemoglobin A1c goal of less than 8.0% ([facility]) E11.9 Obstructive uropathy N13.9 HTN, goal below 150/90 I10 History of prostatectomy Z90.79 Aortic valve stenosis I35.0 Diabetes mellitus with stage 3 chronic kidney disease ([facility]) E11.22, N18.30 Hypertensive kidney disease with chronic kidney disease stage III (HCC) I12.9, N18.30 Ischemic bowel syndrome (HCC) K55.9 Prostate cancer (HCC) C61 Stage 3b chronic kidney disease (HCC) N18.32 CAD S/P percutaneous coronary angioplasty I25.10, Z98.61 S/P TAVR (transcatheter aortic valve replacement) Z95.2 LBBB (left bundle branch block) I44.7 Current Outpatient Medications Medication Sig Dispense Refill ALCOHOL PREP PADS PADS use twice daily 200 3 Cholecalciferol (VITAMIN D-3) 1000 units Capsule Take 1 Capsule by mouth in the morning. NovoFine 32G X 6 MM (NOVOFINE 32G PEN NEEDLE) USE ONCE DAILY WITH LANTUS 100 Each 3 FreeStyle Lite Test In Vitro Strip (Glucose Blood) Dx 11.9 Test twice Daily 200 Strip 3 COVID-19 mRNA Vaccine ([employer]) 30 MCG/0.3ML Intramuscular Suspension metFORMIN HCl 500 MG Oral Tablet (Glucophage) TAKE 1 TABLET TWICE A DAY WITH MORNING AND EVENING MEALS 180 Tablet 3 FreeStyle Lite Test In Vitro Strip (Glucose Blood) USE TWICE A DAY 200 Strip 1 Levothyroxine Sodium 88 MCG Oral Tablet (Levoxyl) Take 1 Tablet by mouth in the morning. (at least 30 min prior to breakfast or other meds). 90 Tablet 3 amLODIPine Besylate 10 MG Oral Tablet (Norvasc) Take 1 Tablet by mouth daily. 90 Tablet 2 Insulin Glargine Solostar 100 UNIT/ML Subcutaneous Solution Pen-injector (Lantus SoloStar) INJECT 20 UNITS UNDER THE SKIN ONCE DAILY 30 mL 3 Atorvastatin Calcium 40 MG Oral Tablet (Lipitor) Take 1 Tablet by mouth every afternoon. Do not start before May 23, 2023. 90 Tablet 3 hydroCHLOROthiazide 25 MG Oral Tablet (Hydrodiuril) TAKE 1 TABLET DAILY 90 Tablet 3 Trulicity 4.5 MG/0.5ML Subcutaneous Solution Pen-injector (Dulaglutide) INJECT THE CONTENTS OF 1 PEN (4.5 MG) UNDER THE SKIN ONCE A WEEK 6 mL 3 Apixaban 2.5 MG Oral Tablet (Eliquis) Take 1 Tablet by mouth in the morning and 1 Tablet before bedtime. 180 Tablet 3 Clopidogrel Bisulfate 75 MG Oral Tablet (pLAVix) Take 1 Tablet by mouth in the morning. 90 Tablet 3 No current facility-administered medications for this visit. Past Medical History: Diagnosis Date Benign neoplasm of colon 11/10/08 villous adenoma, recommend f/u in 1 year DM type 2, goal A1c below 7 Dyslipidemia, goal to be determined HTN, goal below 140/90 Hypothyroidism KIDNEY DZ,CHRONIC (GFR>30-59) STAGE III 10/22/2007 Malignant neoplasm of prostate (HCC) Other specified transient cerebral ischemias Prostate cancer (HCC) 11/16/2019 Past Surgical History: Procedure Laterality Date CARDIAC ANGIOPLASTY, PERCUTANEOUS, 1 ARTERY N/A 05/22/2023 PTCA, CARDIAC ANGIOPLASTY, PERCUTANEOUS, 1 ARTERY performed by Oumar Rojas MD at [facility] COLONOSCOPY W/ LESION REMOVAL, SNARE 11/10/08 villous adenoma, recommend f/u in 1 year COLONOSCOPY, DIAGNOSTIC (RECTUM) 08/12/2013 COLONOSCOPY FLEXIBLE PROXIMAL DIAGNOSTIC performed by Gabriele Ackerman MD at ENDOSCOPY [facility] COLORECTAL CANCER SCREEN; COLON 04/22/2010 done diverticulosis repeat in 3 years CORONARY ANGIOGRAPHY W/LEFT HEART CATH N/A 05/05/2023 CORONARY ANGIOGRAPHY W/LEFT HEART CATH performed by Oumar Rojas MD at [facility] INSERT MULTI-COMP PROSTHESIS, PENIS rectal polyp RADICAL PROSTATE REMOVAL REMOVAL OF APPENDIX REMOVE CATARACT, INSERT LENS PROSTH Left 01/22/2021 LEFT EXTRACAPSULAR CATARACT REMOVAL WITH INTRAOCULAR LENS performed by Julio Cesar Alvarado MD at [facility] REMOVE CATARACT, INSERT LENS PROSTH Right 02/05/2021 RIGHT EXTRACAPSULAR CATARACT REMOVAL WITH INTRAOCULAR LENS performed by Julio Cesar Alvarado MD at [facility] REPLACE AORTIC VALVE, PERCUTANEOUS FEMORAL Bilateral 06/16/2023 REPLACE AORTIC VALVE, PERCUTANEOUS FEMORAL performed by Oumar Rojas MD at [facility] REPLACE AORTIC VALVE, PERCUTANEOUS FEMORAL Bilateral 06/16/2023 REPLACE AORTIC VALVE, PERCUTANEOUS FEMORAL performed by Felix Malagon MD at [facility] SINGLE LOBECTOMY, LUNG abnormal "spot" . removed [place], [place] Review of patient's allergies indicates: No Known Allergies Family History Problem Relation Age of Onset Other (CKD, ESRD, nephrolithiasis) None Family Status Relation Status Mo at age 91 Fa at age 83 ? CVA NONE (Not Specified) Social History Socioeconomic History Marital status: Spouse name: Not on file Number of children: 1 Years of education: Not on file Highest education level: Not on file Occupational History Not on file Tobacco Use Smoking status: Former Packs/day: 1.00 Years: 25.00 Additional pack years: 0.00 Total pack years: 25.00 Types: Cigarettes Quit date: 09/21/1983 Years since quittin.9 Passive exposure: Past Smokeless tobacco: Never Vaping Use Vaping Use: Never used Substance and Sexual Activity Alcohol use: No Comment: quit Drug use: No Sexual activity: Not on file Other Topics Concern Not on file Social History Narrative Retired. Previously worked for [employer]. Retired from [employer] Strain: Not on file Food Insecurity: No Food Insecurity (06/22/2023) Hunger Vital Sign Worried About Running Out of Food in the Last Year: Never true Ran Out of Food in the Last Year: Never true Transportation Needs: Not on file Physical Activity: Not on file Stress: Not on file Social Connections: Not on file Intimate Partner Violence: Not on file Housing Stability: Not on file Review of Systems Constitutional: Negative for activity change, chills, fatigue, fever and unexpected weight change. HENT: Negative for postnasal drip, rhinorrhea and sinus pressure. Eyes: Negative for visual disturbance. +glasses Respiratory: Negative for shortness of breath. Cardiovascular: Negative for chest pain, palpitations and leg swelling. Gastrointestinal: Negative for blood in stool, constipation, diarrhea, nausea and vomiting. Genitourinary: Negative for dysuria and hematuria. Musculoskeletal: Negative for gait problem. Skin: Negative for rash. Neurological: Negative for dizziness, syncope and light-headedness. Objective BP 128/72 | Pulse 64 | Resp 18 | Wt 70.1 kg (154 lb 9.6 oz) | BMI 25.73 kg/m | BSA 1.79 m Physical Exam Vitals and nursing note reviewed. Constitutional: General: He is awake. Appearance: Normal appearance. He is well-developed. HENT: Head: Normocephalic and atraumatic. Eyes: General: No scleral icterus. Extraocular Movements: Extraocular movements intact. Neck: Vascular: Normal carotid pulses. No carotid bruit or JVD. Cardiovascular: Rate and Rhythm: Normal rate and regular rhythm. Pulses: Carotid pulses are 2+ on the right side and 2+ on the left side. Radial pulses are 2+ on the right side and 2+ on the left side. Posterior tibial pulses are 2+ on the right side and 2+ on the left side. Heart sounds: S1 normal and S2 normal. Murmur heard. Pulmonary: Effort: Pulmonary effort is normal. Breath sounds: Normal breath sounds. No decreased breath sounds, wheezing, rhonchi or rales. Abdominal: Palpations: Abdomen is soft. Musculoskeletal: Cervical back: Neck supple. Right lower leg: No edema. Left lower leg: No edema. Skin: General: Skin is warm and dry. Neurological: General: No focal deficit present. Mental Status: He is alert and oriented to person, place, and time. Psychiatric: Attention and Perception: Attention normal. Mood and Affect: Mood normal. Speech: Speech normal. Behavior: Behavior normal. Behavior is cooperative. Thought Content: Thought content normal. Cognition and Memory: Cognition normal. Judgment: Judgment normal. RESULTS: ECGS: 08/03/2023: SR 66bpm With APC LBBB 06/23/2023: SR 66bpm LBBB 06/19/2023: SR 66bpm 1st degree AV block LBBB 06/18/2023: SR 67bpm 1st degree AV block LBBB 06/17/2023: SR 65bpm APC LBBB 06/17/2023: SB 54bpm PVC LBBB 06/16/2023: SB 58bpm LBBB 06/16/2023: SB 54bpm LBBB Occasional SLATE ROOFER HELPER 05/23/2023: SB 59bpm Inferior [place] 05/22/2023: SB 56bpm 05/22/2023: SR 62bpm 05/05/2023: SR 69bpm SA 08/08/2022: SR 76bpm Nonspecific ST & T wave abnormalities 11/24/2019: SR 69bpm Nonspecific ST & T wave abnormalities 07/30/2018: SR 76bpm APC 03/15/2018: SR 64bpm APC Monitor: 06/18/2023: CONCLUSIONS: Agree with Preliminary Findings : The predominant rhythm was sinus rhythm at an average heart rate of 70 BPM. Ten episodes of sustained atrial fibrillation were recorded, the longest of which lasted 5 hours and 25 minutes. The average ventricular response rate was 91 BPM. Occasional episodes of nonsustained atrial tachycardia were also recorded. No symptoms were reported. Echocardiogram: 06/17/2023: The patient is status post TAVR with Ned type prosthetic valve. Significant aortic valve prosthesis regurgitation is absent. Aortic valve prosthesis stenosis is absent. The qualitative LV ejection fraction is 55-59% (normal). The left ventricular wall motion is normal by limited analysis. All left ventricular segments are not visualized. The right ventricular cavity size is normal (basal dimension < 4.2 cm RV apical 4 chamber view).The right ventricular systolic function is qualitatively normal. 06/16/2023: Imaging was done prior to and following TAVR with a 23 Ned S3 Ultra Findings were discussed at the time of the procedure with Annita Rojas and Manas The examination is adequate to evaluate the referral indication. Following removal of the wire: Image and Doppler assessment of aortic stenosis severity is discordant: Severe aorticstenosis is present. Aortic valve prosthesis stenosis is absent. The mean systolic gradient through the TAVR is 3.4 mmHg. The peak aortic valve velocity throught the TAVR is 1.5 m/sec. Trivial paravalvular aortic valve prosthesis regurgitation is present. 06/04/2022: Compared to last available study, there has been no interval change. Normal LV chamber size with mild concentric LVH. Normal LV systolic function without regional wall motion abnormalities. Calculated LV ejection Fraction = 65% (bi-plane method of discs). Grade 1 diastolic dysfunction. The aortic valve has three leaflets. The aortic valve opening is severely reduced. The aortic valve is severely calcified. Severe aortic valve stenosis is present. There is no significant aortic regurgitation. Cardiac Catheterization: 06/16/2023 PIC) Diagnostics was 05/05/2023) LM: Ok LAD: LI Cx: LI RCA: Mid 80-95% s/p PCI; s/p PCI Lab Work Reviewed: Component Latest Ref Rng 07/29/2023 WBC 4.00 - 10.80 K/uL 7.90 RBC 4.50 - 5.25 M/uL 4.31 HGB 14.0 - 16.8 g/dL 13.2 (L) HCT 40.0 - 48.4 % 40.2 MCV 82.0 - 99.5 fL 93.3 MCH 27.0 - 34.0 pg 30.6 MCHC 32.0 - 36.0 g/dL 32.8 RDW 11.5 - 15.5 % 13.3 PLT 140 - 400 K/uL 284 MPV 6.6 - 11.1 fL 10.4 BUN 6 - 20 mg/dL 23 (H) Creatinine 0.6 - 1.2 mg/dL 1.4 (H) Estimated Glomerular Filtration Rate >=60 mL/min 47 (L) Sodium 135 - 146 mmol/L 140 Potassium 3.5 - 5.1 mmol/L 4.6 Chloride 98 - 107 mmol/L 100 CO2 22 - 32 mmol/L 25 Anion Gap 7 - 15 mmol/L 15 Glucose 70 - 120 mg/dL 179 (H) Calcium 8.4 - 10.2 mg/dL 9.7 Hemoglobin A1C 4.0 - 5.6 % 8.2 (H) Estimated Average Glucose <126 mg/dL 189 (H) Component Latest Ref Rng 05/29/2023 TSH 0.27 - 4.20 uIU/mL 1.26 ASSESSMENT: Severe s/p TAVR 06/16/2023 Post TAVR LBBB CAD prox-mid RCA heavily calcified 95% got PCI 05/2023 PAD 80% RFA s/p shock wave lithotripsy of left common iliac and external iliac artery 06/16/2023 pAF seen on zio 06/28/2023 on eliquis 2.5mg BID [id number] 5 (age, CAD, HTN, DM) HTN HLD DM Hypothyroidism CKD stage III Prostate Cancer Vitamin D deficiency PLAN: -I reviewed the cardiac conduction system with the patient and his and how it relates to his condition of devolping a LBBB after the TAVR he will most likely develop higher degree AV block and need a ppm at some juncture -I think we still have time for now given his recent zio patch is not revealing any high degree AV block -He is having some brief pAF and is on eliquis -Will hold off on ppm for now but will follow with pt closely-should he have more pAF and need AVN blockers would recommend proceeding with a ppm or if he starts having symptoms of bradycardia -EP f/u in Carlos A Rios DO documented in this encounter Nursing Notes * Kerline Burns LPN - 08/11/2023 9:36 AM EST Examination Room: 15 Name: Anibal Libertad Date of : (1935) Reason for Visit: New patient consult Interim Hospitalization(s): Denies Problems/Concerns: Denies Chest Pain/SOB: Denies My [facility] is a way you can talk to your provider online through e-mail. Would you like to sign up? I can activate it for you? ALREADY ACTIVE Patient was instructed to not get up on the exam table until directed and assisted by their provider; patient is to remain seated in the chair/ wheelchair/ exam table for fall prevention and safety reasons. Patient is aware to have assistance to step down off exam table with personnel. Patient voiced full comprehension of instructions. documented in this encounter Plan of Treatment Upcoming Encounters Date Type Department Care Team (Late st Contact Info) Description 10/13/2023 3:30 PM EST Office Visit Cardiology, [facility] [address] [facility] [place] [address] Vandana Martin CRNP [address] [place] [address] [place] Gu[place] [phone] 12/04/2023 9:40 AM EDT Office Visit [place] [address] [place] [facility] [place] [id number] Andrea Winters MD [address] [place] [address] 12/04/2023 10:30 AM EDT [facility] [address] [place] [facility] [place] [id number] [place] [facility] [address] [place] [facility] [place] [id number] 12/30/2023 11:00 AM EDT [facility] [address] [facility] [place] [address] Vandana Jay CRNP [address] [place] [address] 03/03/2024 1:00 PM EDT Cardiac Studies Cardiac Studies, [facility] [address] [place] [address] 05/30/2024 2:40 PM EDT Office Visit Nephrology, [facility] [address] [facility] [place] [address] Rowdy Cee MD [address] [facility] [place] [id number] 08/17/2024 1:30 PM EST Cardiac Studies Cardiac Studies, [facility] [address] [place] [address] 08/17/2024 3:00 PM EST Office Visit Cardiology, [facility] [address] [place] [address] Oumar Rojas MD [address] [place] [address] Health Maintenance Due Date Last Done Comments Depression Screening 05/18/2021 05/18/2020 COVID-19 Vaccine (2022-2 4 season) 2023 07/18/2021, 12/25/2020, 12/04/2020 TSH 05/29/2024 05/29/2023, 12/21, 12/02/2022, Additional history exists Zoster Vaccines Completed 06/03/2018, 02/19, 09/29/2007 Influenza Vaccine (FLU shot) Completed , 06/23/2022, 06/06/2020, Additional history exists documented as of this encounter Medical Devices Implanted Type Area Brake Operator Helper Device Identifier Shelf Expiration Date Model / Serial / Lot Lens Intraoc 19.5 - [id number] - [id number] Implanted:Qty: 1 on 01/22/2021 by Julio Cesar Alvarado MD at OR [facility] [address] Left: Eye [employer]OM[employer] 08/20/2025 [id number] / [id number] / [id number] Lens Intraoc 21.0 - [id number] - [id number] Implanted:Qty: 1 on 02/05/2021 by Julio Cesar Alvarado MD at OR [facility] [address] Right: Eye [employer]CH [employer] LOMB 08/20/2025 [id number] / [id number] / [id number] Stent Synergy Xd Mr 3.53h90mg - [id number] Implanted:Qty: 1 on 05/22/2023 by Oumar Rojas MD at [facility] [employer] [id number] 02/17/2024 [id number] / / [id number] Valve Ned 3 Ultra 23mm - [id number] Implanted:Qty: 1 on 06/16/2023 by Oumar Rojas MD at [facility] [employer] [id number] 06/26/2024 [id number] / / documented as of this encounter Visit Diagnoses Diagnosis PAF (paroxysmal atrial fibrillation) (HCC)- Primary Atrial fibrillation LBBB (left bundle branch block) Other left bundle branch block S/P TAVR (transcatheter aortic valve replacement) Heart valve replaced by other means Coronary artery disease involving tlingit & haida coronary artery of tlingit & haida heart without angina pectoris documented in this encounter Advance Directives Latest [...] the patient have Health Care Power of Kinesiology Professor? No Care Teams Block Greaser Relationship Specialty Start Date End Date Andrea Winters MD [address] [place] [address] PCP - General Family Medicine 11/08/18 documented as of this encounter
--- OUTSIDE RECORDS SUMMARY | 2023-12-31 00:36 | External Medical Summary | Summary of Care ---
Author Name Unknown Organization [facility] Address [address] [place] [address] Phone [phone] Care Team Providers Care Dairy Quality Assurance Officer Name Role Phone Andrea Winters MD Primary Care Provider Reason for Visit * Reason Comments Diabetes Follow-Up Dosage Adjustment In Person (Anticoag Cl inic) Encounter Details Date Type Department Care Team ([facility] st Contact Info) Description 08/27/2023 10:00 AM EST Office Visit Pharmacy, [place] [address] [place] [address] [facility] [address] [place] [address] Type 2 diabetes mellitus with hemoglobin A1c goal of less than 8.0% ([facility])* Allergies No known active allergiesdocumented as of this encounter (statuses as of 08/27/2023) Medications Medication Sig Dispensed Refills Start Date End Date Status ALCOHOL PREP PADS PADSIndications:DM type 2, not at goal (HCC) use twice daily 200 3 10/21/2006 Active Cholecalciferol (VITAMIN D-3) 1000 units CapsuleIndications:ada bland one daily thursday, thursday and thursday Take 1 Capsule by mouth in the morning. 0 09/30/2017 Active NovoFine 32G X 6 MM (NOVOFINE 32G PEN NEEDLE) USE ONCE DAILY WITH LANTUS 100 Each 3 01/21/2021 Active FreeStyle Lite Test In Vitro Strip (Glucose Blood)Indications:Typ e 2 diabetes mellitus with hemoglobin A1c goal of less than 8.0% ([facility]) Dx 11.9 Test twice Daily 200 Strip 3 12/12/2021 Active COVID-19 mRNA Vaccine (Pfizer) 30 MCG/0.3ML Intramuscular Suspension 0 07/18/2021 Active metFORMIN HCl 500 MG Oral Tablet (Glucophage)Indicatio ns:Type 2 diabetes mellitus with hemoglobin A1c goal of less than 8.0% ([facility]) TAKE 1 TABLET TWICE A DAY WITH MORNING AND EVENING MEALS 180 Tablet 3 07/28/2022 Active FreeStyle Lite Test In Vitro Strip (Glucose Blood) USE TWICE A DAY 200 Strip 1 12/11/2022 Active Levothyroxine Sodium 88 MCG Oral Tablet (Levoxyl)Indications: Acquired hypothyroidism Take 1 Tablet by mouth in [...] 05/23/2023 Active hydroCHLOROthiazide 25 MG Oral Tablet (Hydrodiuril)Indicati ons:HTN, goal below 150/90,Stage 3b chronic kidney disease (HCC),Hyperkalemia,HT N, goal below 140/90 TAKE 1 TABLET DAILY 90 Tablet 3 06/22/2023 Active Trulicity 4.5 MG/0.5ML Subcutaneous Solution Pen-injector (Dulaglutide) INJECT THE CONTENTS OF 1 PEN (4.5 MG) UNDER THE SKIN ONCE A WEEK 6 mL 3 07/20/2023 Active Apixaban 2.5 MG Oral Tablet (Eliquis)Indications: HTN, goal below 150/90,CAD S/P percutaneous coronary angioplasty,S/P [...] the morning. 90 Tablet 3 08/04/2023 Active documented as of this encounter (statuses as of 08/27/2023) Active Problems Problem Noted Date Diagnosed Date [...] as of this encounter (statuses as of 08/27/2023) Resolved Problems Problem Noted Date Diagnosed Date [...] as of this encounter (statuses as of 08/27/2023) Immunizations Name Administration Dates Next Due COVID-19 mRNA, LNP-s, No Pre serve, 2-Dose Series (Pfizer) 12/25/2020,12/04/2020 COVID-19, LNP-s, No Preserve , Antione-sucrose, Ages 12+ (Pfizer) 07/18/2021 Pneumococcal Conjugate Vacc, 13 Valent (Prevnar) 03/19/2015 Pneumococcal Polysaccharide PPV23 (Pneumovax) 09/21/2007,09/21/2006,02/27/2006 SEASONAL INFLUENZA, PF, 6 M & Above, IM , (FLULAVAL or FLUZONE) 06/28/2018,08/05/2017 Seasonal Influenza, Quadriva lent Hd (Fluzone [...] as of this encounter Progress Notes * Olegario Reynoso, [facility] - 08/27/2023 9:51 AM EST Medication Therapy Disease Management Clinic - Diabetes Management Progress Note Anibal Maurer, identified by name and date of , is a 88 year old male being seen for diabetesmanagement/education. Patient presents for return diabetic visit. DIABETES: Current diabetic medications: Metformin 500mg, 1 tablet twice a day Trulicity 4.5 mg SQ weekly on Tuesdays Lantus 20 units daily GFR 48 as of 05/23/23 Medication Injection Site: Abdomen Lifestyle: Diet: unchanged History of Treatment Barriers: Considerations: Renal function Hypoglycemic unawareness Declines CGM due to not wanting to have to answer his phone Glucose Review/SMBG: Readings obtained from patient documented BG logbook Pre am 110 74 95 70 84 96 97 61 70 84 83 74 88 90 88 77 80 81 109 88 90 130 98 96 97 86 98 100 107 120 109 110 106 109 111 108 109 92 110 124 Pre am Average 96 Hi 130 Lo 61 Range 69 Hypoglycemia: Does your blood sugar go below 70 mg/dL? No Hyperglycemia symptoms present: none Recent Labs Units 07/29/23 0917 03/25/23 0958 12/02/22 0901 HEMOGLOBIN A1C - [facility] % 8.2* 8.6* 8.7* Recent Labs Units 07/29/23 0917 06/19/23 0510 06/18/23 0703 ESTIMATED GLOMERULAR FILTRATION RATE - [facility] mL/min 47* 45* 43* CREATININE - [facility] mg/dL 1.4* 1.5* 1.5* Lab Results Component Value Date/Time CREATININE - [facility] 1.4 (H) 07/29/2023 09:17 AM CREATININE - [facility] 1.5 (H) 06/19/2023 05:10 AM CREATININE - [facility] 1.5 (H) 06/18/2023 07:03 AM CREATININE - [facility] 1.5 (H) 05/18/2020 09:15 AM CREATININE - [facility] 1.5 (H) 08/23/2019 08:23 AM CREATININE - [facility] 1.4 (H) 11/08/2018 10:21 AM CREATININE POCT - [facility] 1.5 (H) 04/27/2023 11:02 AM CREATININE, RANDOM URINE - [facility] 70 12/02/2022 02:49 PM CREATININE, RANDOM URINE - [facility] 103 08/24/2019 10:03 AM CREATININE, RANDOM URINE - [facility] 139 11/08/2018 10:38 AM CREATININE, RANDOM URINE - [facility] 79 09/30/2017 08:33 AM CREATININE-OUTSIDE LAB 1.3 06/03/2022 12:00 AM CREATININE-OUTSIDE LAB 2.2 (A) 07/23/2018 12:00 AM HYPERTENSION: Patient on ACEi/ARB: no, indicated per UACR, but BP controlled BP Readings from Last 3 Encounters: 08/24/23 121/52 08/11/23 128/72 08/03/23 128/72 Blood pressure at goal: yes HYPERLIPIDEMIA: Patient is taking moderate or high intensity statin: yes, Atorvastatin 40mg daily HEALTH MAINTENANCE REVIEW: Health Maintenance Due Topic Date Due Depression Screening 05/18/2021 COVID-19 Vaccine ( season) 2023 ASSESSMENT & PLAN: ICD-10-CM 1. Type 2 diabetes mellitus with hemoglobin A1c goal of less than 8.0% ([facility]) E11.9 BG Readings - Blood sugars controlled. BG are much lower the past 6 weeks. Patient stated no difference in diet or activity. Medications - Reviewed current regimen, patient is adherent to regimen. Will decrease Lantus to allow BG to rise some. Diet, Exercise, Lifestyle - No significant lifestyle changes since last visit. Discussed with patient today. Patient is agreeable to SMBG 1 time(s) daily. Patient aware to contact clinic if any hypoglycemia before next visit. MEDICATION CHANGES: yes, see below; preferred pharmacy: [facility] Diabetic Medications: Metformin 500mg, 1 tablet twice a day Trulicity 4.5 mg SQ weekly on Tuesdays DECREASE: Lantus 18 units daily GFR 48 as of 05/23/23 HEALTH MAINTENANCE INTERVENTIONS: Labs: Ordered & Scheduled: Urine Microalbumin Immunizations: Up to Date Foot Exam: Up to Date Eye Exam: Up to Date Annual Wellness Visit: Up to Date FOLLOW UP: Return to clinic in 3 months 12/04/2023 Olegario Barnard RPh, CDE Clinical Pharmacist - [employer] Medication Therapy Management Clinic 08/27/2023, 9:52 AM documented in this encounter Plan of Treatment Upcoming Encounters Date Type Department Care Team (Late st Contact Info) Description 08/28/2023 12:00 PM EST Cardiac Studies Cardiac Studies [place] [address] [place] [address] 09/29/2023 3:30 PM EST Office Visit Cardiology, [facility] [address] Vandana Martin CRNP [address] [place] [address] 12/04/2023 9:40 AM EDT Office Visit Family Practice, [place] [address] [place] [address] Andrea Winters MD [address] [place] [address] 12/04/2023 10:30 AM EDT Office Visit Pharmacy, [place] [address] [place] [address] [facility] [address] [place] [address] 12/30/2023 11:00 AM EDT Office Visit Cardiology, [facility] [address] Vandana Jay CRNP [facility] [address] 05/30/2024 2:40 PM EDT Office Visit Nephrology, [facility] [address] [place] [address] Rowdy Cee MD [address] [place] [address] 08/17/2024 1:30 PM EST Cardiac Studies Cardiac Studies, [facility] [place] [address] 08/17/2024 3:00 PM EST Office Visit Cardiology, [facility] [address] [facility] [place] [address] Oumar Rojas MD [address] [facility] [place] [address] Health Maintenance Due Date Last Done Comments Depression Screening 05/18/2021 05/18/2020 COVID-19 Vaccine (4 - 2022-2 4 season) 2023 07/18/2021, 12/25/2020, 12/04/2020 TSH 05/29/2024 05/29/2023, 12/21, 12/02/2022, Additional history exists Zoster Vaccines Completed 06/03/2018, 02/19, 09/29/2007 Influenza Vaccine (FLU shot) Completed , 06/23/2022, 06/06/2020, Additional history exists documented as of this encounter Medical Devices Implanted Type Area Decision Support Manager Device Identifier Shelf Expiration Date Model / Serial / Lot Lens Intraoc 19.5 - [id number] - [id number] Implanted:Qty: 1 on 01/22/2021 by Julio Cesar Alvarado MD at OR [facility] Left: Eye [employer]OM[employer] 08/20/2025 [id number] / [id number] / [id number] Lens Intraoc 21.0 - [id number] - [id number] Implanted:Qty: 1 on 02/05/2021 by Julio Cesar Alvarado MD at OR [facility] Right: Eye BAUSCH [employer] LOMB 08/20/2025 [id number] / [id number] / [id number] Stent Synergy Xd Mr [id number] - [id number] Implanted:Qty: 1 on 05/22/2023 by Oumar Rojas MD at [facility] [employer] [id number] 02/17/2024 [id number] / / [id number] Valve Ned 3 Ultra 23mm - [id number] Implanted:Qty: 1 on 06/16/2023 by Oumar Rojas MD at [facility] [employer] [id number] 06/26/2024 [id number] / / documented as of this encounter Visit Diagnoses Diagnosis Type 2 diabetes mellitus with hemoglobin A1c goal of less than 8.0% (HCC)- Primary documented in this encounter Advance Directives [...] the patient have Health Care Power of General Utility Maintenance Repairer? No Care Teams Dairy Quality Assurance Officer Relationship Specialty Start Date End Date Andrea Winters MD [address] [place] [address] PCP - General Family Medicine 11/08/18 documented as of this encounter
--- OUTSIDE RECORDS SUMMARY | 2023-12-31 00:36 | External Medical Summary | Summary of Care ---
Author Name Unknown Organization [facility] Address [address] [place] [address] Phone [phone] Care Team Providers Care Robotics Engineer Name Role Phone Emily Winters MD Primary Care Provider [phone] Reason for Visit * Reason Comments eRx-Medication Refill Encounter Details Date Type Department Care Team (Late st Contact Info) Description 09/10/2023 Refill Pharmacy, [place] [address] [place] [address] Emily Winters MD [address] [place] [address] Type 2 diabetes mellitus with hemoglobin A1c goal of less than 8.0% ([facility]) Allergies No known active allergiesdocumented as of this encounter (statuses as of 09/10/2023) Medications Medication Sig Dispensed Refills Start Date [...] Strip 3 12/12/2021 Active COVID-19 mRNA Vaccine ([employer] [facility]) 30 MCG/0.3ML Intramuscular Suspension 0 07/18/2021 Active [...] EVENING MEALS 180 Tablet 3 09/10/2023 Active metFORMIN HCl 500 MG Oral Tablet (Glucophage)Indicat ions:Type 2 diabetes mellitus with hemoglobin A1c goal of less than 8.0% (HCC) TAKE 1 TABLET TWICE A DAY WITH MORNING AND EVENING MEALS 180 Tablet 3 07/28/2022 09/10/20 23 Discontinued documented as of this encounter (statuses as of 09/10/2023) Active Problems Problem Noted Date Diagnosed Date [...] as of this encounter (statuses as of 09/10/2023) Resolved Problems Problem Noted Date Diagnosed Date [...] as of this encounter (statuses as of 09/10/2023) Immunizations Name Administration Dates Next Due COVID-19 mRNA, LNP-s, No Pre serve, 2-Dose Series ([employer] [facility]) 12/25/2020,12/04/2020 COVID-19, LNP-s, No Preserve , Antione-sucrose, [...] encounter Miscellaneous Notes * Telephone Encounter - Marianne Reynoso RP - 09/10/2023 10:14 AM ESTSigned Prescriptions: Disp Refills metFORMIN HCl 500 MG Oral Tablet (Glucopha*180 Ta*3 Sig: TAKE 1 TABLET TWICE A DAY WITH MORNING AND EVENING MEALSAuthorizing Provider: EMILY WINTERS User: MARIANNE BARNARD V * Telephone Encounter - Marianne Reynoso RPh - 09/10/2023 10:13 AM EST Did you pend patient's preferred pharmacy and medication before forwarding?no Pharmacy: [facility]- [place] Pending Prescriptions: Disp Refills metFORMIN HCl 500 MG Oral Tablet (Glucoph*180 Ta*3 Sig: TAKE 1 TABLET TWICE A DAY WITH MORNING AND EVENING MEALS Last Visit: 08/27/2023 (in office), 08/29/2022 (telemedicine) Next Visit: 12/04/2023 If no future appointments scheduled, and last appointment is greater than a year ago, please schedule patient for a follow-up appointment Last date the medication was ordered: 07/28/2022 Is this request for a controlled substance?No Urine Drug Screen:No results found for this or any previous visit. Patient Phone Numbers Labs: Lab Results Component Value Date/Time CREAT 1.4 (H) 07/29/2023 09:17 AM CREAT 1.5 (H) 04/27/2023 11:02 AM CREAT 1.3 06/03/2022 12:00 AM CREAT 1.5 (H) 05/18/2020 09:15 AM POTASSIUM 4.6 07/29/2023 09:17 AM POTASSIUM 3.9 06/03/2022 12:00 AM POTASSIUM 4.7 05/18/2020 09:15 AM TSH 1.26 05/29/2023 10:53 AM TSH 0.30 (A) 06/03/2022 12:00 AM TSH 0.77 12/27/2019 06:58 AM LDLCALC 35 06/03/2022 12:00 AM LDLCALC 44 07/30/2018 12:05 PM LDLDIRECT 33 08/23/2019 08:23 AM LDLDIRECT 40 05/06/2011 08:11 AM ALT 24 06/16/2023 09:08 AM ALT 30 08/23/2019 08:23 AM HGBA1C 8.2 (H) 07/29/2023 09:17 AM HGBA1C 8.1 (A) 06/03/2022 12:00 AM HGBA1C 10.4 (H) 05/18/2020 09:15 AM Marianne Barnard RPh, CACP, CDE Clinical Pharmacist Medication Therapy Management Clinic 09/10/2023, 10:13 AM documented in this encounter Plan of Treatment Upcoming Encounters Date Type Department Care Team (Late st Contact Info) Description 10/13/2023 3:30 PM EST Office Visit Cardiology, [facility] 132 [facility] [place] [address] Vandana Martin CRNP [address] [place] [address] [place] [address] 12/04/2023 9:40 AM EDT Office Visit Family Practice, [place] [address] [facility] [phone] Emily Winters MD [address] [facility] [place] [address] 12/04/2023 10:30 AM EDT Office Visit Pharmacy, [place] [address] [facility] [address] [place] [address] [facility] [address] 12/30/2023 11:00 AM EDT Office Visit Cardiology, [facility] [address] [place] [address] Vandana Jay CRNP [address] [place] [address] 03/03/2024 1:00 PM EDT Cardiac Studies Cardiac Studies, [facility] [address] [place] [address] 05/30/2024 2:40 PM EDT Office Visit Nephrology, [facility] [address] [facility] [place] [address] Rowdy Cee MD [address] [facility] [place] [address] 08/17/2024 1:30 PM EST Cardiac Studies Cardiac Studies, [facility] [address] [place] [address] 08/17/2024 3:00 PM EST Office Visit Cardiology, [facility] [address] [place] [address] Oumar Rojas MD [address] [place] [address] Health Maintenance Due Date Last Done Comments Depression Screening 05/18/2021 05/18/2020 COVID-19 Vaccine (4 - 2022-2 4 season) 2023 07/18/2021, 12/25/2020, 12/04/2020 TSH 05/29/2024 05/29/2023, 12/21, 12/02/2022, Additional history exists Zoster Vaccines Completed 06/03/2018, 02/19, 09/29/2007 Influenza Vaccine (FLU shot) Completed , 06/23/2022, 06/06/2020, Additional history exists documented as of this encounter Medical Devices Implanted Type Area Sweet Potato Disintegrator Device Identifier Shelf Expiration Date Model / Serial / Lot Lens Intraoc 19.5 - [id number] - [id number] Implanted:Qty: 1 on 01/22/2021 by Julio Cesar Alvarado MD at OR [facility] Left: Eye [employer] 08/20/2025 [id number] / [id number] / [id number] Lens Intraoc 21.0 - [id number] - [id number] Implanted:Qty: 1 on 02/05/2021 by Julio Cesar Alvarado MD at [facility] Right: Eye BAUSCH [employer] LOMB 08/20/2025 [id number] / [id number] / [id number] Stent Synergy Xd Mr [id number] - [id number] Implanted:Qty: 1 on 05/22/2023 by Oumar Rojsa MD at [facility] [employer] [id number] 02/17/2024 [id number] / / [id number] Valve Ned 3 Ultra 23mm - [id number] Implanted:Qty: 1 on 06/16/2023 by Oumar Rojas MD at [facility] [employer] [id number] 06/26/2024 [id number] / / documented as of this encounter Visit Diagnoses Diagnosis Type 2 diabetes mellitus with hemoglobin A1c goal of less than 8.0% ([facility]) documented in this encounter Advance Directives Latest [...] the patient have Health Care Power of Pain Coordinator? No Care Teams Robotics Engineer Relationship Specialty Start Date End Date Emily Winters MD [address] [place] [address] PCP - General Family Medicine 11/08/18 documented as of this encounter
--- OUTSIDE RECORDS SUMMARY | 2023-12-31 00:37 | External Medical Summary ---
Author Name Unknown Address Unknown Organization K0G:[facility] [address] [place] [id number] Laboratory Report Ordering Provider Test Date Status JERONIMO GONZALEZ 07/29/2023 09:17:06 Final Observation Date Value Abnormality Reference (Units ) Status WBC, Total 07/29/2023 09:17:06 7.90 4.00-10.8 0 (K/uL) Final RBC 07/29/2023 09:17:06 4.31 4.50-5.25 (M/uL) Final Hemoglobin 07/29/2023 09:17:06 13.2 Below low normal 14 .0-16.8 (g/dL) Final HCT 07/29/2023 09:17:06 40.2 40.0-48.4 (%) Final MCV 07/29/2023 09:17:06 93.3 82.0-99.5 (fL) Final MCH 07/29/2023 09:17:06 30.6 27.0-34.0 (pg) Final MCHC 07/29/2023 09:17:06 32.8 32.0-36.0 (g/dL) Final RDW 07/29/2023 09:17:06 13.3 11.5-15.5 (%) Final Platelets 07/29/2023 09:17:06 284 140-400 (K /uL) Final MPV 07/29/2023 09:17:06 10.4 6.6-11.1 ( fL) Final Performing Location [facility] [address] [place] [address]
--- OUTSIDE RECORDS SUMMARY | 2023-12-31 00:37 | External Medical Summary | Summary of Care ---
Author Name Unknown Organization [facility] Address [address] [place] [address] Phone [phone] Care Team Providers Care Front Desk Administrator Name Role Phone Andrea Winters MD Primary Care Provider [phone] Reason for Referral * Precert (Within 10 days (routine)) - Authorized Specialty Diagnoses / Procedures Referred By Contac t Referred To Contact Cardiac Studies Diagnoses HTN, goal below 150/90 CAD S/P percutaneous coronary angioplasty S/P TAVR (transcatheter aortic valve replacement) Severe aortic stenosis LBBB (left bundle branch block) PAD (peripheral artery disease) (HCC) PAF (paroxysmal atrial fibrillation) (HCC) Procedures ECHO, COMPLETE (2D), TRANS-THORACIC Vandana Jay CRNP [address] [place] [address] Referral ID Status Reason Start Date Expiration Date V isits Requested Visits Authorized [id number] Authorized Precert 05/23/2024 999 999 * Precert (Within 10 days (routine)) - Authorized Specialty Diagnoses / Procedures Referred By Contac t Referred To Contact Cardiac Studies Diagnoses HTN, goal below 150/90 CAD S/P percutaneous coronary angioplasty S/P TAVR (transcatheter aortic valve replacement) Severe aortic stenosis LBBB (left bundle branch block) PAD (peripheral artery disease) (HCC) PAF (paroxysmal atrial fibrillation) (HCC) Procedures ECHO, COMPLETE (2D), TRANS-THORACIC Vandana Jay CRNP [address] [place] [address] Referral ID Status Reason Start Date Expiration Date V isits Requested Visits Authorized [id number] Authorized Precert 08/03/2023 999 999 Reason for Visit * Reason Comments Follow Up Encounter Details Date Type Department Care Team (Late st Contact Info) Description 08/03/2023 10:00 AM EST Office Visit Cardiology, [facility] [address] [place] [address] Vandana Jay CRNP [address] [place] [address] S/P TAVR (transcatheter aortic valve replacement)*; Severe aortic stenosis; LBBB (left bundle branch block); PAF (paroxysmal atrial fibrillation) ([facility]); CAD S/P percutaneous coronary angioplasty; HTN, goal below 150/90; PAD (peripheral artery disease) ([facility]) Allergies No known active allergiesdocumented as of this encounter (statuses as of 08/03/2023) Medications Medication Sig Dispensed Refills Start Date End Date Status ALCOHOL PREP PADS PADSIndications:DM type 2, not at goal ([facility]) use twice daily 200 3 [...] hemoglobin A1c goal of less than 8.0% ([facility]) Dx 11.9 Test twice Daily 200 Strip 3 12/12/2021 Active COVID-19 mRNA Vaccine (Prezi) 30 MCG/0.3ML Intramuscular Suspension 0 07/18/2021 Active metFORMIN HCl 500 MG Oral Tablet (Glucophage)Indicati ons:Type 2 diabetes mellitus with hemoglobin A1c goal of less than 8.0% ([facility]) TAKE 1 TABLET TWICE A [...] 23, 2023. 90 Tablet 3 05/23/2023 Active Clopidogrel Bisulfate 75 MG Oral Tablet (pLAVix) Take 1 Tablet by mouth in the morning. Do not start before May 23, 2023. 90 Tablet 3 05/23/2023 Active hydroCHLOROthiazide 25 MG Oral Tablet (Hydrodiuril)Indicat ions:HTN, [...] (left bundle branch block),PAD (peripheral artery disease) ([facility]),PAF (paroxysmal atrial fibrillation) ([facility]) Take 1 Tablet by mouth in the morning and 1 Tablet before bedtime. 180 Tablet 3 08/03/2023 Active Apixaban 5 MG Oral Tablet (Eliquis) Take 0.5 Tablets by mouth in the morning and 0.5 Tablets before bedtime. 90 Tablet 0 07/14/2023 3 Discontinue d(Refill) documented as of this encounter (statuses as of 08/03/2023) Active Problems Problem Noted Date Diagnosed Date [...] as of this encounter (statuses as of 08/03/2023) Resolved Problems Problem Noted Date Diagnosed Date [...] as of this encounter (statuses as of 08/03/2023) Immunizations Name Administration Dates Next Due COVID-19 [...] Passive Smoke Exposure: Past Smokeless Tobacco: Never Tobacco Cessation:Counseling Given: Not Answered Alcohol Use Standard Drinks/Week Comments No 0 (1 standard drink = 0.6 oz pur e alcohol) quit PHQ-2 Answer Date Recorded PHQ-2 Score 0 05/18/2020 Hunger Vital Sign Answer Date Recorded Worried About Running Out of Food in the Last Ye ar Never true 05/18/2020 Ran Out of Food in the Last Year Never true 05/18/2020 Sex and Gender Information Value Date Recorded Sex Assigned at Male 05/17/2019 1:43 PM EDT Gender Identity Male 05/17/2019 1:43 PM EDT Sexual Orientation Straight 05/17/2019 1: 43 PM EDT Job Start Date Occupation Industry Not on file Not on file Not on file documented as of this encounter Last Filed Vital Signs Vital Sign Reading Time Taken Comments Blood Pressure 128/72 08/03/2023 9:38 AM EST Pulse 72 08/03/2023 9:38 AM EST Temperature - - Respiratory Rate - - Oxygen Saturation 97% 08/03/2023 9:38 AM EST Inhaled Oxygen Concentration - - Weight 69.9 kg (154 lb) 08/03/2023 9:38 AM EST Height - - Body Mass Index 25.63 06/16/2023 5:01 PM EDT documented in this [...] as of this encounter Progress Notes * Vandana Jay CRNP - 08/03/2023 10:00 AM EST Cardiology Outpatient Visit 08/03/[address] Hoff Past medical history: Severe aortic stenosis s/p TAVR (# 23 mm Hu Ned S3 Ultra valve), 06/16/[address] Up [facility] New LBBB Complex CAD, Prox-midRCA with heavily calcified 95% stenosis status post rotational atherectomy+ PCI with x3 overlapping DELORES from mid RCA to ostium-- (2.7iwe33lw, 2.8rzi16cd and 3.9zzh61mm Synergy DELORES), per pre-TAVR cath 05/22/2023 Peripheral arterial disease, 80% RFA stenosis per cardiac catheterization 05/22/2023 S/p shock wave lithotripsy of the left common iliac and left external iliac artery, 06/16/2023 Paroxysmal atrial fibrillation, diagnosed 06/28/2023 per Zio monitor. [id number] score of 4, on reduced dose Eliquis due to age and renal function Hypertension Dyslipidemia Type 2 Diabetes Hypothyroidism HPI 88-year-old male presenting to the valve clinic today in close follow-up after TAVR. Patient carries a history of severe aortic stenosis and underwent successful placement of # 23 mm Hu Ned S3 Ultra valve on 06/16/2023. Patient developed a new LBBB intraoperatively resulting in placement of temporary venous pacing wire. Subsequently developed new first degree AV block on 06/18/2023. He was monitored via telemetry and did not require pacing for >48 hours prior to discharge. ECG on morning of discharge with stable new 1st degree AV block and new LBBB. Post-operative CXRsstable, and follow-up echocardiogram with adequate valve function and no evidence of significant AR. His post-operative course was also complicated by concerns for bleeding at bilateral femoral access sites which resolved with manual pressure, hemoglobin remained stable with no transfusion requirement. Discharged in stable condition on 06/19/2023. Operations & Procedures: 06/16/2023 - TAVR with successful placement of # 23 mm Hu Ned S3 Ultra valve. Transfemoral approach In preparation for TAVR patient had a cardiac catheterization revealing proximal to mid RCA diseasewith heavy calcification up to 95% stenosis status post rotational arthrectomy +PCI with x3 overlapping DELORES from the mid RCA to the ostium. Recommendations for at minimum 6 months of DAPT continuation without interruption. Most recently evaluated by Dr. Hoff on 06/23/2023-- notable fatigue and dyspnea remained. On 06/28/2023--Zio monitor report showed atrial fibrillation. Aspirin was discontinued and Eliquis 2.5 mgtwice daily was started. He will be seeing FLROIDA Noe on 08/11/2023 Today the patient presents feeling well. He is accompanied by his per his usual routine. From a cardiac standpoint he is feeling well. Denies any chest pain. Notes that he does get "played out" and slightly dyspneic with activity-- has not been doing much at home but he is planning on startingcardiac rehab on . Denies any lightheadedness or dizziness. No syncope. No orthopnea or PND. No lower extremity edema. No fever, chills, cough, hematochezia, melena, or hemoptysis. He states he is compliant with all medications, and offers no side effects. EKG showing sinus rhythm with left bundle branch block and PACs, 66 beats per minute. Current Outpatient Medications Medication Sig Dispense Refill Cholecalciferol (VITAMIN D-3) 1000 units Capsule Take 1 Capsule by mouth in the morning. NovoFine 32G X 6 MM (NOVOFINE 32G PEN NEEDLE) USE ONCE DAILY WITH LANTUS 100 Each 3 FreeStyle Lite Test In Vitro Strip (Glucose Blood) Dx 11.9 Test twice Daily 200 Strip 3 metFORMIN HCl 500 MG Oral Tablet (Glucophage) [...] before May 23, 2023. 90 Tablet 3 Clopidogrel Bisulfate 75 MG Oral Tablet (pLAVix) Take 1 Tablet by mouth in the morning. Do not start before May 23, 2023. [...] 1 Tablet before bedtime. 180 Tablet 3 ALCOHOL PREP PADS PADS use twice daily 200 3 COVID-19 mRNA Vaccine (Prezi) 30 MCG/0.3ML Intramuscular Suspension No current facility-administered medications for this visit. [...] by Oumar Rojas MD at [facility] COLONOSCOPY W/ LESION REMOVAL, SNARE 11/10/08 villous adenoma, recommend f/u in 1 year COLONOSCOPY, DIAGNOSTIC (RECTUM) 08/12/2013 COLONOSCOPY FLEXIBLE PROXIMAL DIAGNOSTIC performed by Gabriele Ackerman MD at [facility] COLORECTAL CANCER SCREEN; COLON 04/22/2010 done diverticulosis repeat in 3 years CORONARY ANGIOGRAPHY W/LEFT HEART CATH N/A 05/05/2023 CORONARY ANGIOGRAPHY W/LEFT HEART CATH performed by Oumar Rojas MD at [facility] INSERT MULTI-COMP PROSTHESIS, PENIS rectal polyp RADICAL PROSTATE REMOVAL REMOVAL OF APPENDIX REMOVE CATARACT, INSERT LENS PROSTH Left 01/22/2021 LEFT EXTRACAPSULAR CATARACT REMOVAL WITH INTRAOCULAR LENS performed by Julio Cesar Alvarado MD at [facility] REMOVE CATARACT, INSERT LENS PROSTH Right 02/05/2021 RIGHT EXTRACAPSULAR CATARACT REMOVAL WITH INTRAOCULAR LENS performed by Julio Cesar Alvarado MD at [facility] REPLACE AORTIC VALVE, PERCUTANEOUS FEMORAL Bilateral 06/16/2023 REPLACE AORTIC VALVE, PERCUTANEOUS FEMORAL performed by Oumar Rojas MD at [facility] REPLACE AORTIC VALVE, PERCUTANEOUS FEMORAL Bilateral 06/16/2023 REPLACE AORTIC VALVE, PERCUTANEOUS FEMORAL performed by Felix Malagon MD at [facility] SINGLE LOBECTOMY, LUNG abnormal "spot" . removed [place], [place] Social History Tobacco Use Smoking status: Former Packs/day: 1.00 Years: 25.00 Additional pack years: 0.00 Total pack years: 25.00 Types: Cigarettes Quit date: 09/21/1983 Years since quittin.8 Passive exposure: Past Smokeless tobacco: Never Vaping Use Vaping Use: Never used Substance Use Topics Alcohol use: No Comment: quit Drug use: No Review of patient's allergies indicates: No Known Allergies Review of Systems: See HPI for pertinent positives. All others negative, other than those noted in HPI. Physical Exam BP 128/72 | Pulse 72 | Wt 69.9 kg (154 lb) | SpO2 97% | BMI 25.63 kg/m | BSA 1.79 m General: No acute distress. A+Ox3. HEENT: Normocephalic. Atraumatic. Conjunctiva and sclera clear. NECK: No carotid bruits. No JVD. Carotid upstrokes are brisk. Heart: RRR. S1 and S2 noted. +3/6 systolic murmur Lungs: Clear to auscultation. No wheezes, rhonchi, rales. Abdomen: Normal bowel sounds. Soft. Nontender. No masses or organomegaly. No abdominal bruits. Extremities: No edema. No clubbing or cyanosis. Pulses: radial=2/4, posterior tibial=2/4, dorsalis pedis = 2/4. NEURO: No focal deficits. PSYCH: Normal. Lab data/imaging study review: [place] AT (POST TAVR) 06/18/2023 Preliminary Findings Prepared by Sahil Sheth, WILFRED 07/09/23 Patient had a min HR of 48 bpm, max HR of 176 bpm, and avg HR of 71 bpm. Predominant underlying rhythm was Sinus Rhythm. Intermittent Bundle Branch Block was present. QRS morphology changes were present throughout recording. 81 Supraventricular Tachycardia runs occurred, the run with the fastest interval lasting 4 beats with a max rate of 148 bpm, the longest lasting 11 beats with an avg rate of 132 bpm. Atrial Fibrillation occurred (5% burden), ranging from 53-176 bpm (avg of 91 bpm), the longest lasting 5 hours 25 mins with an avg rate of 91 bpm. Atrial Fibrillation was present at de-activation of device. Isolated SVEs were rare (<1.0%), SVE Couplets were rare (<1.0%), and SVE Triplets were rare (<1.0%). Isolated VEs were rare (<1.0%), VE Couplets were rare (<1.0%), and no VE Triplets were present. Previously Notified: MD notification criteria for First Documentation of Atrial Fibrillation met - report posted prior to notification per account request (GS) Echo 06/17/2023- POD 1 TAVR The examination is adequate to evaluate the referral indication. The patient is status post TAVR with Ned type prosthetic valve. Significant aortic valve prosthesis regurgitation is absent. Aortic valve prosthesis stenosis is absent. The qualitative LV ejection fraction is 55-59% (normal). The left ventricular wall motion is normalby limited analysis. All left ventricular segments are not visualized. The right ventricular cavity size is normal (basal dimension < 4.2 cm RV apical 4 chamber view).The right ventricular systolic function is qualitatively normal. Cardiac Cath PRE TAVR 05/22/2023 Proximal to mid RCA with heavily calcified upto 95% stenosis s/p PCI. Rotational atherectomy was used for lesion preparation. Mid RCA to the ostium was then stented with three overlapping DELORES (2.2wuz44jn, 2.2ezw59qt and 3.0bbp44ur Synergy DELORES). Final angiogram showed resolution of stenosis and TIMIIII flow. * Access * R radial artery access aborted because of small caliber. R STONE AND CONCRETE WASHER access aborted after microcatheter insertion because of significant STONE AND CONCRETE WASHER disease of 80%. L STONE AND CONCRETE WASHER access with 6 F sheath. Will be pulled after ACT<180. Echo 01/2023 The examination is adequate to evaluate the referral indication. The LV wall thickness is mildly increased (concentric). The left ventricular wall motion is normal. The qualitative LV ejection fraction is 60-64% (normal). The aortic valve is severely calcified. Severe aortic valve stenosis is present. The peak continuous-wave Doppler velocity= 4 meters/second, mean gradient 40 mm Hg, BERKLEY=0.6-0.8 cm2. Trace aortic regurgitation is present. The aortic root and proximal ascending aorta are normal sized. Compared to the previous study dated 06/04/2022, the indices of aortic valve stenosis are relatively unchanged. Ao V2 max: 426.7 cm/sec, Ao mean P.6 mmHg, BERKLEY(I,D): 0.84 cm2 Echo 11/25/2021 The examination is adequate to evaluate the referral indication. The left ventricular cavity size is normal. The LV wall thickness is mildly increased (concentric). The basal septum is thickened and angulated consistent with sigmoid septum. The left ventricular wall motion is normal. The qualitative LV ejection fraction is 60-64% (normal). The aortic valve is severely calcified. Severe aortic valve stenosis is present. The aortic root and proximal ascending aorta are normal sized. Ao V2 max: 398.9 cm/sec BERKLEY(I,D): 0.86 cm2 Ao mean P.1 mmHg Impression/Plan: 1. Severe aortic stenosis 2. S/P TAVR (transcatheter aortic valve replacement) -Severe aortic stenosis s/p TAVR (# 23 mm Hu End S3 Ultra valve), 06/16/[address] Rojas at [facility] -NYHA class 2 1. Has upper and lower dentures-- No routine dental work should be completed in the first 6 months after TAVR. However if an acute issue arises, patient is to alert the valve team. Antibiotics are needed for all dental work: Amoxicillin 2g- Take 4 capsules 1 hour prior to any dental work 2. Slowly increase activity- recommend cardiac rehab. 3. Continue Plavix and Eliquis (due to complex PCI)-- once 1 year of Plavix + Eliquis is completed,can consider transitioning to ASA and Eliquis. 4. Repeat echo in the near future to reassess TAVR gradients. 3. LBBB (left bundle branch block) -New LBBB post TAVR procedure, 06/16/2023 -ZIO AT without Salomon arrhythmias or pauses. PAF as noted below. 4. PAF (paroxysmal atrial fibrillation) (HCC) -Paroxysmal atrial fibrillation, diagnosed 06/28/2023 per Zio monitor, 5% burden. -[id number] score of 4, on reduced dose Eliquis 1. Keep follow up with EP as scheduled, consider addition of beta anatoly pending assessment of ZIOmonitor rhythm strips. Hesitant to add at this time due to underlying conduction system disease/slow resting HR on EKG today in office. 2. Continue Eliquis 2.5 mg BID 5. CAD S/P percutaneous coronary angioplasty -Complex CAD, Prox-midRCA with heavily calcified 95% stenosis status post rotational atherectomy+ PCI with x3 overlapping DELORES from mid RCA to ostium, per pre-TAVR cath 05/22/2023. Stable, no angina. -LDL 35, controlled. 1. Continue Plavix + Eliquis (not on ASA due to Eliquis use) for a minimum of 1 year without interruption, consider transitioning to ASA and Eliquis 05/22/2024 2. Continue Atorvastatin 40 mg daily 6. HTN, goal below 150/90 -Controlled. Continue HCTZ 25 mg daily 7. PAD (peripheral artery disease) ([facility]) -Peripheral arterial disease, 80% RFA stenosis per cardiac catheterization 05/22/2023 -S/p shock wave lithotripsy of the left common iliac and left external iliac artery, 06/16/2023 The patient agrees to the above plan and will call with additional questions or concerns. ER with all emergencies advised. Follow-up: Return in about 1 year (around 08/03/2024). | Check-out note: Keep echo appt 08/28. Then 1 year follow up with Bob at (echo same day). General cards follow up in 4-6 months, ADAIRB patient. Keep KZ appt. I spent a total of 40 minutes on the date of service in preparation, delivery, and documentation ofthe care provided to Anibal Maurer excluding any time spent in the performance of separately billed services. AMARJIT Grimes [facility], Department of Cardiology This chart was completed in part utilizing Real Time Tomography Speech Voice Recognition Software. Grammatical errors, random word insertions, prounoun errors, and incomplete sentences are an occasional consequence of this system due to software limitations, ambient noise, and hardware issues. Any formal questions or concerns about the content, text, or information contained within the body of this dictation should be directly addressed to the provider for clarification. documented in this encounter Nursing Notes * Angie Del Rosario CMA - 08/03/2023 9:38 AM EST Examination Room: 7 Name: Anibal Maurer Date of : (1935) Reason for Visit: 1 month Interim Hospitalization(s): TAVR 06/16/23 Problems/Concerns: denied Chest Pain/SOB: denied [facility] a way you can [...] 08/11/2023 3:15 PM EST Office Visit Cardiology, [facility] [address] [facility] [place] [address] [place], [address] [facility] [place] [address] 08/24/2023 3:00 PM EST Office Visit Nephrology, [place] [address] [place] [address] Rowdy Cee MD [address] [place] [address] 08/27/2023 10:00 AM EST Office Visit Pharm[facility], [place] [address] [facility] [address] [place], [facility] [address] [place] [address] 08/28/2023 12:00 PM EST Cardiac Studies Cardiac Studies, [place] [address] [place] [address] 12/04/2023 9:40 AM EDT Office Visit [facility], [place] [address] [place] [address] Andrea Winters MD [address] [place] [address] 12/30/2023 11:00 AM EDT Office Visit Cardiology, [facility] [address] [place] [address] Vandana Jay CRNP [address] [place] [address] 08/17/2024 1:30 PM EST Cardiac Studies Cardiac Studies, [facility] [address] [facility] [place] [address] 08/17/2024 3:00 PM EST Office Visit Cardiology, [facility] [address] [place] [address] Oumar Rojas MD [address] [place] [address] Scheduled Orders Name Type Priority Associated Diagnoses Orde r Schedule EKG EKG Routine HTN, goal below 150/90 CAD S/P percutaneous coronary angioplasty S/P TAVR (transcatheter aortic valve replacement) Severe aortic stenosis LBBB (left bundle branch block) PAD (peripheral artery disease) ([facility]) PAF (paroxysmal atrial fibrillation) ([facility]) Ordered: 08/03/2023 ECHO, COMPLETE (2D), TRANS-THORACIC Echocardiology Routine HTN, goal below 150/90 CAD S/P percutaneous coronary angioplasty S/P TAVR (transcatheter aortic valve replacement) Severe aortic stenosis LBBB (left bundle branch block) PAD (peripheral artery disease) ([facility]) PAF (paroxysmal atrial fibrillation) ([facility]) Expected: 08/03/2023, Expires: 09/02/2025 ECHO, COMPLETE (2D), TRANS-THORACIC Echocardiology Routine HTN, goal below 150/90 CAD S/P percutaneous coronary angioplasty S/P TAVR (transcatheter aortic valve replacement) Severe aortic stenosis LBBB (left bundle branch block) PAD (peripheral artery disease) ([facility]) PAF (paroxysmal atrial fibrillation) ([facility]) Expected: 05/23/2024, Expires: 09/02/2025 Health Maintenance Due Date Last Done Comments Depression Screening 05/18/2021 05/18/2020 COVID-19 Vaccine (2022- 4 season) 2023 07/18/2021, 12/25/2020, 12/04/2020 TSH 05/29/2024 05/29/2023, 12/21, 12/02/2022, Additional history exists Zoster Vaccines Completed 06/03/2018, 02/19, 09/29/2007 Influenza Vaccine (FLU shot) Completed , 06/23/2022, 06/06/2020, Additional history exists documented as of this encounter Medical Devices Implanted Type Area Tower Dragline Operator Device Identifier Shelf Expiration Date Model / Serial / Lot Lens Intraoc 19.5 - [id number] - [id number] Implanted:Qty: 1 on 01/22/2021 by Julio Cesar Alvarado MD at [facility] Left: Eye [employer] 08/20/2025 [id number] / [id number] / [id number] Lens Intraoc 21.0 - [id number] - [id number] Implanted:Qty: 1 on 02/05/2021 by Julio Cesar Alvarado MD at [facility] Right: Eye [employer]CH [employer] LOMB 08/20/2025 [id number] / [id number] / [id number] Stent Synergy Xd Mr 3.04w75cm - [id number] Implanted:Qty: 1 on 05/22/2023 by Oumar Rojas MD at [facility] [id number] 02/17/2024 [id number] / / [id number] Valve Ned 3 Ultra 23mm - [id number] Implanted:Qty: 1 on 06/16/2023 by Oumar Rojas MD at [facility] [employer] [id number] 06/26/2024 [id number] / / documented as of this encounter Visit Diagnoses Diagnosis S/P TAVR (transcatheter aortic valve replacement)- Primary Heart valve replaced by other means Severe aortic stenosis Aortic valve disorders LBBB (left bundle branch block) Other left bundle branch block PAF (paroxysmal atrial fibrillation) (HCC) Atrial fibrillation CAD S/P percutaneous coronary angioplasty Coronary atherosclerosis of agdaagux coronary artery HTN, goal below 150/90 PAD (peripheral artery disease) (HCC) Peripheral vascular disease, unspecified documented in this encounter Advance Directives Latest [...] the patient have Health Care Power of [place] [employer] [place] Department Supervisor? No Care Teams Front Desk Administrator Relationship Specialty Start Date End Date Andrea Winters MD [address] [place] [address] PCP - General Family Medicine 11/08/18 documented as of this encounter
--- OUTSIDE RECORDS SUMMARY | 2023-12-31 00:37 | External Medical Summary | Summary of Care ---
Author Name Unknown Organization [facility] Address [address] [place] [address] Phone [phone] Care Team Providers Care Consumer Affairs Specialist Name Role Phone Andrea Winters MD Primary Care Provider [phone] Reason for Visit * Reason Comments New Med Request Encounter Details Date Type Department Care Team ([facility] st Contact Info) Description 08/04/[address] [facility], [place] [address], [place] [id number] Misael Oro, DIRECTOR SALES SUPPORT [address], [place] [id number] Allergies No known active allergiesdocumented as of this encounter (statuses as of 08/04/2023) Medications Medication Sig Dispensed Refills Start Date End Date Status ALCOHOL PREP PADS PADSIndications:DM type 2, not at goal ([facility]) use twice daily 200 3 [...] goal of less than 8.0% ([facility]) Dx 11.9 Test twice Daily 200 Strip 3 12/12/2021 Active COVID-19 mRNA Vaccine (Pfizer) 30 MCG/0.3ML Intramuscular Suspension 0 07/18/2021 Active metFORMIN HCl 500 MG Oral Tablet (Glucophage)Indicat ions:Type 2 diabetes mellitus with hemoglobin A1c goal of less than 8.0% ([facility]) TAKE 1 TABLET TWICE A [...] branch block),PAD (peripheral artery disease) ([facility]),PAF (paroxysmal atrial fibrillation) ([facility]) Take 1 Tablet by mouth in the morning and 1 Tablet before bedtime. 180 Tablet 3 08/03/2023 Active Clopidogrel Bisulfate 75 MG Oral Tablet (pLAVix) Take 1 Tablet by mouth in the morning. 90 Tablet 3 08/04/2023 Active Clopidogrel Bisulfate 75 MG Oral Tablet (pLAVix) Take 1 Tablet by mouth in the morning. Do not start before May 23, 2023. 90 Tablet 3 05/23/2023 08/04/20 23 Discontinued documented as of this encounter (statuses as of 08/04/2023) Active Problems Problem Noted Date Diagnosed Date [...] as of this encounter (statuses as of 08/04/2023) Resolved Problems Problem Noted Date Diagnosed Date [...] as of this encounter (statuses as of 08/04/2023) Immunizations Name Administration Dates Next Due COVID-19 [...] encounter Miscellaneous Notes * Telephone Encounter - Misael Oro CRNP - 08/04/2023 9:34 AM ESTSigned Prescriptions: Disp Refills Clopidogrel Bisulfate 75 MG Oral Tablet (p*90 Tab*3 Sig: Take 1 Tablet by mouth in the morning. Authorizing Provider: MISAEL ORO * Telephone Encounter - Tera Garcia LPN - 08/04/2023 9:28 AM ESTPending Prescriptions: Disp Refills Clopidogrel Bisulfate 75 MG Oral Tablet (p*90 Tab*3 Sig: Take 1 Tablet by mouth in the morning. * Telephone Encounter - Tera Garcia LPN - 08/04/2023 9:27 AM EST Please send to mail order Tera Garcia LPN 08/04/2023 9:28 AM documented in this encounter Plan of Treatment Upcoming Encounters Date Type Department Care Team (Late st Contact Info) Description 08/11/2023 3:15 PM EST Office Visit Cardiology, [facility] [address] [facility] [place] [address] Marina Rios [address] [place] [address] 08/24/2023 3:00 PM EST Office Visit Nephrology, [place] [address] [place] [address] Rowdy Cee MD [address] [place] [address] 08/27/2023 10:00 AM EST [address] [address] [facility] [address] [place] [address] 08/28/2023 12:00 PM EST Cardiac Studies Cardiac Studies, [place] [address] [place] [address] 12/04/2023 9:40 AM EDT Office Visit Family Practice, [place] [address] [place] [phone] Andrea Winters MD [address] [place] [address] 12/30/2023 11:00 AM EDT Office Visit Cardiology, [facility] [address] [place] [address] Vandana Jay CRNP [address] [facility] [place] [address] 08/17/2024 1:30 PM EST Cardiac Studies Cardiac Studies, [facility] 132 [place] [address] 08/17/2024 3:00 PM EST Office Visit Cardiology, [address] [address] Oumar Rojas MD [address] [place] [address] Health Maintenance Due Date Last Done Comments Depression Screening 05/18/2021 05/18/2020 COVID-19 Vaccine (2022-2 4 season) 2023 07/18/2021, 12/25/2020, 12/04/2020 TSH 05/29/2024 05/29/2023, 12/21, 12/02/2022, Additional history exists Zoster Vaccines Completed 06/03/2018, 02/19, 09/29/2007 Influenza Vaccine (FLU shot) Completed , 06/23/2022, 06/06/2020, Additional history exists documented as of this encounter Medical Devices Implanted Type Area Cylinder Head Assembler Device Identifier Shelf Expiration Date Model / Serial / Lot Lens Intraoc 19.5 - [id number] - [id number] Implanted:Qty: 1 on 01/22/2021 by Julio Cesar Alvarado MD at OR [facility] Left: Eye [employer]OM[employer] 08/20/2025 [id number] / [id number] / [id number] Lens Intraoc 21.0 - [id number] - [id number] Implanted:Qty: 1 on 02/05/2021 by Julio Cesar Alvarado MD at [facility] Right: Eye BAUSCH [employer] LOMB 08/20/2025 [id number] / [id number] / [id number] Stent Synergy Xd Mr 3.93p02il - [id number] Implanted:Qty: 1 on 05/22/2023 by Oumar Rojas MD at [facility] [employer] [id number] 02/17/2024 [id number] 2300 / / [id number] Valve Ned 3 Ultra 23mm - [id number] Implanted:Qty: 1 on 06/16/2023 by Oumar Rojas MD at [facility] [employer] [id number] 06/26/2024 [id number] / / documented as of this encounter [...] the patient have Health Care Power of Buyers' Agent? No Care Teams Consumer Affairs Specialist Relationship Specialty Start Date End Date Andrea Winters MD [address] [place] [address] PCP - General Family Medicine 11/08/18 documented as of this encounter
--- OUTSIDE RECORDS SUMMARY | 2023-12-31 00:37 | External Medical Summary | Summary of Care ---
Author Name Unknown Organization [facility] Address [address] [place] [address] Phone [phone] Care Team Providers Care Lawn Mower Repairer Name Role Phone Andrea Winters MD Primary Care Provider [phone] Encounter Details Date Type Department Care Team (Late st Contact Info) Description 06/22/2023 Population Health External Data Unspecified Department Allergies No known active allergiesdocumented as of this encounter (statuses as of 08/03/2023) Medications Medication Sig Dispensed Refills Start Date End Date Status ALCOHOL PREP PADS PADSIndications:DM type 2, not at goal ([facility]) use twice daily 200 3 10/21/2006 Active Cholecalciferol (VITAMIN D-3) 1000 units CapsuleIndications:ta edwina one daily thursday, thursday and thursday Take 1 Capsule by mouth in the morning. 0 09/30/2017 Active NovoFine 32G X 6 MM (NOVOFINE 32G PEN NEEDLE) USE ONCE DAILY WITH LANTUS 100 Each 3 01/21/2021 Active FreeStyle Lite Test In Vitro Strip (Glucose Blood)Indications:Typ e 2 diabetes mellitus with hemoglobin A1c goal of less than 8.0% ([facility]) Dx 11.9 Test twice Daily 200 Strip 3 12/12/2021 Active COVID-19 mRNA Vaccine (GoGoVan) 30 MCG/0.3ML Intramuscular Suspension 0 07/18/2021 Active metFORMIN HCl 500 MG Oral Tablet (Glucophage)Indicatio ns:Type 2 diabetes mellitus with hemoglobin A1c goal of less than 8.0% ([facility]) TAKE 1 TABLET TWICE A DAY WITH [...] TABLET DAILY 90 Tablet 3 06/22/2023 Active documented as of this encounter (statuses [...] mRNA, LNP-s, No Pre serve, 2-Dose Series (GoGoVan) 12/25/2020,12/04/2020 COVID-19, LNP-s, No Preserve , Antione-sucrose, [...] Former Cigarettes 1 25 Q uit: 09/21/1983 Smokeless Tobacco: Never Alcohol Use Standard Drinks/Week [...] 08/11/2023 3:15 PM EST Office Visit Cardiology, [facility] 132 [facility] [place] [address] Marina Rios, [address] [facility] [place] [address] 08/24/2023 3:00 PM EST Office Visit Nephrology, [facility] G[place]le [address] [place] [address] Rowdy Cee MD [address] [facility] [place] [address] 08/27/2023 10:00 AM EST Office Visit Pharmacy, [place] [address] [facility] [address] [facility] [address] [facility] [address] 08/28/2023 12:00 PM EST Cardiac Studies Cardiac Studies, [place] [address] [facility] [place] [address] 12/04/2023 9:40 AM EDT Office Visit Family Practice, [place] [address] [facility] [place] [phone] Andrea Winters MD [address] [place] [address] 12/30/2023 11:00 AM EDT Office Visit Cardiology, [facility] 132 [place] [address] Vandana Jay CRNP 132 [place] [address] 08/17/2024 1:30 PM EST Cardiac Studies Cardiac Studies, [facility] [address] [place] [address] 08/17/2024 3:00 PM EST Office Visit Cardiology, [facility] [address] [place] [address] Oumar Rojas MD [address] [place] [address] Health Maintenance Due Date Last Done Comments Depression Screening 05/18/2021 05/18/2020 COVID-19 Vaccine (2022-2 4 season) 2023 07/18/2021, 12/25/2020, 12/04/2020 TSH 05/29/2024 05/29/2023, 12/21, 12/02/2022, Additional history exists Zoster Vaccines Completed 06/03/2018, 02/19, 09/29/2007 Influenza Vaccine (FLU shot) Completed , 06/23/2022, 06/06/2020, Additional history exists documented as of this encounter Medical Devices Implanted Type Area Anesthesiology Technologist Device Identifier Shelf Expiration Date Model / Serial / Lot Lens Intraoc 19.5 - [id number] - [id number] Implanted:Qty: 1 on 01/22/2021 by Julio Cesar Alvarado MD at [facility] Left: Eye [employer]CH [employer] LOMB 08/20/2025 [id number] / [id number] / [id number] Lens Intraoc 21.0 - [id number] - [id number] Implanted:Qty: 1 on 02/05/2021 by Julio Cesar Alvarado MD at [facility] Right: Eye BAUSCH [employer] LOMB 08/20/2025 [id number] / [id number] / [id number] Stent Synergy Xd Mr 3.70r08eb - [id number] Implanted:Qty: 1 on 05/22/2023 by Oumar Rojas MD at [facility] [employer] [id number] 02/17/2024 [id number] 2300 / / [id number] Valve Ned 3 Ultra 23mm - [id number] Implanted:Qty: 1 on 06/16/2023 by Oumar Rojas MD at [facility] [employer] [id number] 06/26/2024 [id number] / / documented as of this encounter [...] the patient have Health Care Power of Wrecking Crane Engine Operator? No Care Teams Lawn Mower Repairer Relationship Specialty Start Date End Date Andrea Winters MD [address] [place] [address] PCP - General Family Medicine 11/08/18 documented as of this encounter
--- OUTSIDE RECORDS SUMMARY | 2023-12-31 00:37 | External Medical Summary | Summary of Care ---
Author Name Unknown Organization [facility] Address [address] [place] [address] Phone [phone] Care Team Providers Care Bushler Name Role Phone Andrea Winters MD Primary Care Provider [phone] Reason for Visit * Reason Comments Outpatient Testing Encounter Details Date Type Department Care Team (Late st Contact Info) Description 07/29/2023 9:30 AM EST Laboratory Laboratory, [facility] [address] [place] [address] [facility] [address] [place] [address] History of transcatheter aortic valve replacement (TAVR); Type 2 diabetes mellitus with hemoglobin A1c goal of less than 8.0% (HCC) Allergies No known active allergiesdocumented as of this encounter (statuses as of 07/29/2023) Medications Medication Sig Dispensed Refills Start Date [...] A1c goal of less than 8.0% (HCC) Dx 11.9 Test twice Daily 200 Strip [...] TABLET DAILY 90 Tablet 3 06/22/2023 Active Apixaban 5 MG Oral Tablet (Eliquis) Take 0.5 Tablets by mouth in the morning and 0.5 Tablets before bedtime. 90 Tablet 0 07/14/2023 Active Trulicity 4.5 MG/0.5ML Subcutaneous Solution Pen-injector (Dulaglutide) INJECT THE CONTENTS OF 1 PEN (4.5 MG) UNDER THE SKIN ONCE A WEEK 6 mL 3 07/20/2023 Active documented as of this encounter (statuses as of 07/29/2023) Active Problems Problem Noted Date Diagnosed Date [...] as of this encounter (statuses as of 07/29/2023) Resolved Problems Problem Noted Date Diagnosed Date [...] as of this encounter (statuses as of 07/29/2023) Immunizations Name Administration Dates Next Due COVID-19 mRNA, LNP-s, No Pre serve, 2-Dose Series (M/A-COM) 12/25/2020,12/04/2020 COVID-19, LNP-s, No Preserve , Antione-sucrose, [...] or making decisions? (5 years old or older No 06/16/2023 documented as of this encounter Plan of Treatment Upcoming Encounters Date Type Department Care Team (Late st Contact Info) Description 08/03/2023 10:00 AM EST Office Visit Cardiology, [facility] [address] [place] [address] Vandana Jay CRNP [address] [place] [address] 08/11/2023 3:15 PM EST Office Visit Cardiology, [facility] [address] [place] [address] Marina Rios DO [address] [place], [place] [address] [place] [address] 08/24/2023 3:00 PM EST Office Visit Nephrology, [place] [address] [place], [place] [address] Rowdy Cee MD [address] [place], [place] [address] 08/27/2023 10:00 AM EST Office Visit [facility], [place] [address] [facility] [address] [facility] [address] [place] [facility] [place] [address] 08/28/2023 12:00 PM EST Cardiac Studies Cardiac Studies, [place] [address] [place] [address] 12/04/2023 9:40 AM EDT Office [facility], [place] [address] [facility] [phone] Andrea Winters MD [address] [place] [address] Pending Results Name Type Priority Associated Diagnoses Date /Time CBC Lab Routine History of transcatheter aortic valve replacement (TAVR) 07/29/2023 9:17 AM EST BASIC METABOLIC PANEL Lab Routine History of transcatheter aortic valve replacement (TAVR) 07/29/2023 9:17 AM EST HEMOGLOBIN A1C Lab Routine Type 2 diabetes mellitus with hemoglobin A1c goal of less than 8.0% ([facility]) 07/29/2023 9:17 AM EST Health Maintenance Due Date Last Done Comments Depression Screening 05/18/2021 05/18/2020 COVID-19 Vaccine (2022-2 4 season) 2023 07/18/2021, 12/25/2020, 12/04/2020 TSH 05/29/2024 05/29/2023, 12/21, 12/02/2022, Additional history exists Zoster Vaccines Completed 06/03/2018, 02/19, 09/29/2007 Influenza Vaccine (FLU shot) Completed , 06/23/2022, 06/06/2020, Additional history exists documented as of this encounter Medical Devices Implanted Type Area Ditcher Device Identifier Shelf Expiration Date Model / Serial / Lot Lens Intraoc 19.5 - [id number] - [id number] Implanted:Qty: 1 on 01/22/2021 by Julio Cesar Alvarado MD at OR [facility] Left: Eye [employer]CH [employer] LOMB 08/20/2025 [id number] / [id number] / [id number] Lens Intraoc 21.0 - [id number] - [id number] Implanted:Qty: 1 on 02/05/2021 by Julio Cesar Alvarado MD at [facility] Right: Eye BAUSCH [employer] LOMB 08/20/2025 [id number] / [id number] / [id number] Stent Synergy Xd Mr 3.23q47gx - [id number] Implanted:Qty: 1 on 05/22/2023 by Oumar Rojas MD at [facility] [employer] [id number] 02/17/2024 [id number] 2300 / / [id number] Valve Ned 3 Ultra 23mm - [id number] Implanted:Qty: 1 on 06/16/2023 by Oumar Rojas MD at [facility] [employer] [id number] 06/26/2024 [id number] / / documented as of this encounter Visit Diagnoses Diagnosis History of transcatheter aortic valve replacement (TAVR) Type 2 diabetes mellitus with hemoglobin A1c goal of less than 8.0% (HCC) documented in this encounter Advance Directives Latest [...] the patient have Health Care Power of Agricultural Economics Professor? No Care Teams Bushler Relationship Specialty Start Date End Date Andrea Winters MD [address] [place] [address] PCP - General Family Medicine 11/08/18 documented as of this encounter
--- OUTSIDE RECORDS SUMMARY | 2023-12-31 00:37 | External Medical Summary | Summary of Care ---
Author Name Unknown Organization [facility] Address [address] [place] [address] Phone [phone] Care Team Providers Care Cfa Name Role Phone Andrea Winters MD Primary Care Provider [phone] Encounter Details Date Type Department Care Team (Late st Contact Info) Description 07/15/2023 Chemistry Faculty MemberAirline Station AgentSwedish Medical Center [facility] [address] [place] [address] Marina Rodriguez, RN [address] [place] [address] Aortic valve stenosis, etiology of cardiac valve disease unspecified* Allergies No known active allergiesdocumented as of this encounter (statuses as of 07/15/2023) Medications Medication Sig Dispensed Refills Start Date End Date Status ALCOHOL PREP PADS PADSIndications:DM type 2, not at goal ([facility]) use twice daily 200 3 10/21/2006 [...] hemoglobin A1c goal of less than 8.0% ([facility]) Dx 11.9 Test twice Daily 200 Strip 3 12/12/2021 Active COVID-19 mRNA Vaccine (Pfizer) 30 MCG/0.3ML Intramuscular Suspension 0 07/18/2021 Active Trulicity 4.5 MG/0.5ML Subcutaneous Solution Pen-injector (Dulaglutide) INJECT THE CONTENTS OF 1 PEN (4.5 MG) UNDER THE SKIN ONCE A WEEK 6 mL 3 06/09/2022 Active metFORMIN HCl 500 MG Oral Tablet (Glucophage)Indicatio ns:Type 2 diabetes mellitus with hemoglobin A1c goal of less than 8.0% ([facility]) TAKE 1 TABLET TWICE A DAY [...] before bedtime. 90 Tablet 0 07/14/2023 Active documented as of this encounter (statuses as of 07/15/2023) Active Problems Problem Noted Date Diagnosed Date [...] as of this encounter (statuses as of 07/15/2023) Resolved Problems Problem Noted Date Diagnosed Date [...] as of this encounter (statuses as of 07/15/2023) Immunizations Name Administration Dates Next Due COVID-19 [...] = 0.6 oz pur e alcohol) quit Sex and Gender Information Value Date Recorded [...] of this encounter Progress Notes * Marina Rodriguez RN - 07/15/2023 8:56 AM EDT S: spoke with patient's Sandra O: Per Sandra, patient states patient is doing "a lot better" Patient has some SOB with exertion, has a dry cough in the morning Has a good appetite, denies bowel/bladder complaints No complaints of pain, blood sugars in the 100's Patient independent with ambulation & ADL's To start cardiac rehab at [facility] on 08/06/23 A: Phone Follow Up P: Encouraged to call if patient has SOB, cough, fever, chills, increased LE/abdominal edema Advised to call office for any change in health status or questions concerning care Encouraged patient to call case reviewer with any questions/concerns at [phone]. Office Hours: Thu- 8-8 pm, Thursday 8-5 pm, s weekend clinic hours: Saturdays 8-5, Sundays 8-5 Marina Rodriguez RN [address] [place] [address] documented in this encounter Plan of Treatment Upcoming Encounters Date Type Department Care Team (Late st Contact Info) Description 07/29/2023 9:30 AM EST Laboratory Laboratory, [facility] [phone] [facility] [address] [facility] [address] 08/03/2023 10:00 AM EST Office Visit Cardiology, [facility] [place] [address] Vandana Jay CRNP [address] [facility] [place] [place] [address] 08/11/2023 3:15 PM EST Office Visit Cardiology, [facility] [address] [facility] [address] Marina Rios, [address] [place] [address] 08/24/2023 3:00 PM EST Office Visit Nephrology, [facility] [address] [place], [place] [address] Rowdy Cee MD [address] [place] [address] 08/27/2023 10:00 AM EST Office Visit Pharmacy, [place] [address] [address] [facility] [address] [facility] [address] [facility] [address] 08/28/2023 12:00 PM EST Cardiac Studies Cardiac Studies, [place] [address] [facility], [place] [address] 12/04/2023 9:40 AM EDT [facility] [place] [address] [facility], [place] [phone] Andrea Winters MD [address] [facility] [address] Health Maintenance Due Date Last Done Comments Depression Screening 05/18/2021 05/18/2020 COVID-19 Vaccine (2022-2 4 season) 2023 07/18/2021, 12/25/2020, 12/04/2020 TSH 05/29/2024 05/29/2023, 12/21, 12/02/2022, Additional history exists Zoster Vaccines Completed 06/03/2018, 02/19, 09/29/2007 Influenza Vaccine (FLU shot) Completed , 06/23/2022, 06/06/2020, Additional history exists documented as of this encounter Medical Devices Implanted Type Area Interstate Bus Dispatcher Device Identifier Shelf Expiration Date Model / Serial / Lot Lens Intraoc 19.5 - [id number] - [id number] Implanted:Qty: 1 on 01/22/2021 by Julio Cesar Alvarado MD at OR [facility] Left: Eye [employer]OM[employer] 08/20/2025 [id number] / [id number] / [id number] Lens Intraoc 21.0 - [id number] - [id number] Implanted:Qty: 1 on 02/05/2021 by Julio Cesar Alvarado MD at OR [facility] Right: Eye [employer]CH [employer] LOMB 08/20/2025 [id number] / [id number] / [id number] Stent Synergy Xd Mr 3.57l24ii - [id number] Implanted:Qty: 1 on 05/22/2023 by Oumar Rojas MD [place] [facility] [employer] [id number] 02/17/2024 [id number] 2299 / [id number] Valve Ned 3 Ultra 23mm - [id number] Implanted:Qty: 1 on 06/16/2023 by Oumar Rojas MD [place] [facility] [employer] [id number] 06/26/2024 [id number] / / documented as of this encounter Visit Diagnoses Diagnosis Aortic valve stenosis, etiology of cardiac valve disease unspecified- Primary documented in this encounter Advance Directives [...] the patient have Health Care Power of Wastewater Treatment Plant Chemist? No Care Teams Cfa Relationship Specialty Start Date End Date Andrea Winters MD [address] [place] [address] PCP - General Family Medicine 11/08/18 documented as of this encounter
--- OUTSIDE RECORDS SUMMARY | 2023-12-31 00:37 | External Medical Summary ---
Author Name Unknown Address Unknown Organization K0G:[facility] [place] [address] [place] [id number] Laboratory Report Ordering Provider Test Date Status JERONIMO GONZALEZ 07/29/2023 09:17:06 Final Observation Date Value Abnormality Reference (Units ) Status BUN 07/29/2023 09:17:06 23 Above high normal 6-20 (mg/dL) Final Creatinine 07/29/2023 09:17:06 1.4 Above high normal 0.6-1.2 (mg/dL) Final Glomerular filtration rate/1.73 sq M.predicted [Volume Rate/Area] in Serum, Plasma or Blood by Creatinine-based formula (CKD-EPI) 07/29/2023 09:17:06 47 Below low normal >=60 (mL/min) Final eGFR is calculated based on the CKD-EPI 2020 equation SODIUM 07/29/2023 09:17:06 140 135-146 (m mol/L) Final Potassium 07/29/2023 09:17:06 4.6 3.5-5.1 (m mol/L) Final Cl 07/29/2023 09:17:06 100 98-107 (mm ol/L) Final CO2 07/29/2023 09:17:06 25 22-32 (mmo l/L) Final Anion gap 07/29/2023 09:17:06 15 7-15 (mmol /L) Final Glucose 07/29/2023 09:17:06 179 Above high normal 70 -120 (mg/dL) Final Calcium 07/29/2023 09:17:06 9.7 8.4-10.2 ( mg/dL) Final Performing Location [facility] [place] [address] [place] [address]
--- OUTSIDE RECORDS SUMMARY | 2023-12-31 00:37 | External Medical Summary | Summary of Care ---
Author Name Unknown Organization [facility] Address [address] [place] [address] Phone [phone] Care Team Providers Care Implementation Architect Name Role Phone Andrea Winters MD Primary Care Provider [phone] Reason for Referral * Precert (Within 10 [...] TRANS-THORACIC Vandana Jay CRNP [address] [place] [address] Referral ID Status Reason Start Date Expiration Date V isits Requested Visits Authorized [id number] Authorized Precert 05/23/2024 999 999 * Precert [...] TRANS-THORACIC Vandana Jay CRNP [address] [place] [address] Referral ID Status Reason Start Date Expiration Date V isits Requested Visits Authorized [id number] Authorized Precert 08/03/2023 999 999 Reason for Visit * Reason Comments Follow Up Encounter Details Date Type Department Care Team (Late st Contact Info) Description 08/03/2023 10:00 AM EST Office Visit Cardiology, [facility] [address] [place] [address] Vandana Jay CRNP [address] [place] [address] S/P TAVR (transcatheter aortic valve replacement)*; Severe aortic stenosis; LBBB (left bundle branch block); PAF (paroxysmal atrial fibrillation) ([facility]); CAD S/P percutaneous coronary angioplasty; HTN, goal below 150/90; PAD (peripheral artery disease) ([facility]) Allergies No known active allergiesdocumented as of this encounter (statuses as of 08/03/2023) Medications Medication Sig Dispensed Refills Start Date End Date Status ALCOHOL PREP PADS PADSIndications:DM type 2, not at goal ([facility]) use twice daily 200 3 [...] goal of less than 8.0% ([facility]) Dx 11.9 Test twice Daily 200 Strip 3 12/12/2021 Active COVID-19 mRNA Vaccine (METRIXWARE) 30 MCG/0.3ML Intramuscular Suspension 0 07/18/2021 Active metFORMIN HCl 500 MG Oral Tablet (Glucophage)Indicati ons:Type 2 diabetes mellitus with hemoglobin A1c goal of less than 8.0% ([facility]) TAKE 1 TABLET TWICE A [...] branch block),PAD (peripheral artery disease) ([facility]),PAF (paroxysmal atrial fibrillation) ([facility]) Take 1 Tablet by mouth [...] AM EST Cardiology Outpatient Visit 08/03/[address] Nurse Dr[address] Hoff Past medical history: Severe aortic stenosis s/p TAVR (# 23 mm Lepe Ned S3 Ultra valve), 06/16/[address] Up [facility] New LBBB Complex CAD, Prox-midRCA with heavily calcified 95% stenosis status post rotational atherectomy+ PCI with x3 overlapping DELORES from mid RCA to ostium-- (2.5ojw65fk, 2.7mkj80cg and 3.8amw43kj Synergy DELORES), per pre-TAVR cath 05/22/2023 Peripheral arterial disease, 80% RFA stenosis per cardiac catheterization 05/22/2023 S/p shock wave lithotripsy of the left common iliac and left external iliac artery, 06/16/2023 Paroxysmal atrial fibrillation, diagnosed 06/28/2023 per Zio monitor. [id number] score of 4, on reduced dose Eliquis due to age and renal function Hypertension Dyslipidemia Type 2 Diabetes Hypothyroidism HPI 88-year-old male presenting to the valve clinic today in close follow-up after TAVR. Patient carries a history of severe aortic stenosis and underwent successful placement of # 23 mm Lepe Ned S3 Ultra valve on 06/16/2023. Patient [...] with successful placement of # 23 mm Lepe Ned S3 Ultra valve. Transfemoral approach In [...] daily was started. He will be seeing [place] Noe on 08/11/2023 Today the patient presents [...] twice daily 200 3 COVID-19 mRNA Vaccine (METRIXWARE) 30 MCG/0.3ML Intramuscular Suspension No current facility-administered [...] by Oumar Rojas MD at [facility] COLONOSCOPY W/ LESION REMOVAL, SNARE 11/10/08 villous adenoma, recommend f/u in 1 year COLONOSCOPY, DIAGNOSTIC (RECTUM) 08/12/2013 COLONOSCOPY FLEXIBLE PROXIMAL DIAGNOSTIC performed by Gabriele Ackerman MD at ENDOSCOPY [facility] COLORECTAL CANCER SCREEN; COLON 04/22/2010 done diverticulosis repeat in 3 years CORONARY ANGIOGRAPHY W/LEFT HEART CATH N/A 05/05/2023 CORONARY ANGIOGRAPHY W/LEFT HEART CATH performed by Oumar Rojas MD at [facility] INSERT MULTI-COMP PROSTHESIS, PENIS rectal polyp RADICAL PROSTATE REMOVAL REMOVAL OF APPENDIX REMOVE CATARACT, INSERT LENS PROSTH Left 01/22/2021 LEFT EXTRACAPSULAR CATARACT REMOVAL WITH INTRAOCULAR LENS performed by Julio Cesar Alvarado MD at OR [facility] REMOVE CATARACT, INSERT LENS PROSTH Right 02/05/2021 RIGHT EXTRACAPSULAR CATARACT REMOVAL WITH INTRAOCULAR LENS performed by Julio Cesar Alvarado MD at [facility] REPLACE AORTIC VALVE, PERCUTANEOUS FEMORAL Bilateral 06/16/2023 REPLACE AORTIC VALVE, PERCUTANEOUS FEMORAL performed by Oumar Rojas MD at [facility] REPLACE AORTIC VALVE, PERCUTANEOUS FEMORAL Bilateral 06/16/2023 REPLACE AORTIC VALVE, PERCUTANEOUS FEMORAL performed by Felix Malagon MD at [facility] SINGLE LOBECTOMY, LUNG abnormal "spot" . removed [place], [place] Social History Tobacco Use Smoking status: [...] was then stented with three overlapping DELORES (2.5ias43sz, 2.4zss54fc and 3.0umz08ew Synergy DELORES). Final angiogram showed resolution of stenosis and TIMIIII flow. * Access * R radial artery access aborted because of small caliber. R COUNTER MOLDER access aborted after microcatheter insertion because of significant COUNTER MOLDER disease of 80%. L COUNTER MOLDER access with 6 F sheath. Will be [...] aortic stenosis s/p TAVR (# 23 mm Lepe Ned S3 Ultra valve), 06/16/[address] Rojas at [facility] -NYHA class 2 1. Has upper and [...] diagnosed 06/28/2023 per Zio monitor, 5% burden. -[id number] score of 4, on reduced dose Eliquis [...] mg daily 7. PAD (peripheral artery disease) ([facility]) -Peripheral arterial disease, 80% RFA [...] performance of separately billed services. AMARJIT Grimes [facility], Department of Cardiology This chart was completed in part utilizing [employer] Speech Voice Recognition Software. Grammatical errors, random word insertions, prounoun errors, and incomplete sentences are an occasional consequence of this system due to software limitations, ambient noise, and hardware issues. Any formal questions or concerns about the content, text, or information contained within the body of this dictation should be directly addressed to the provider for clarification. documented in this encounter Procedure Notes * Felix Ortega DO - 08/03/2023 9:46 AM ESTAssociated Order(s): EKG REASON FOR STUDY: routine CONCLUSIONS: Sinus rhythm with Premature atrial complexes Left bundle branch block Abnormal ECG When compared with ECG of 23-JUN-2023 10:26, Premature atrial complexes are now Present Ventricular Rate: 66 Atrial Rate: 66 TN Interval: 164 QRS Duration: 122 QT/QTc: 440/461 ms P-R-T [place]: 1 : -1 : -88 degrees documented in this encounter Nursing Notes * [...] 08/11/2023 3:15 PM EST Office Visit Cardiology, [facility] [address] [facility] [place] [address] Marina Rios DO [address] [facility] [place] [address] 08/24/2023 3:00 PM EST Office Visit Nephrology, [place] [address] [facility] [place] [address] Rowdy Cee MD [address] [place] [address] 08/27/2023 10:00 AM EST Office Visit Pharmacy, [facility] [address] [place] [address] [facility] [address] [place] [address] 08/28/2023 12:00 PM EST Cardiac Studies Cardiac Studies, [facility] [address] [place] [address] 12/04/2023 9:40 AM EDT Office Visit Family [facility], [place] [address] [place] [address] Andrea Winters MD [address] [place] [address] 12/30/2023 11:00 AM EDT Office Visit Cardiology, [facility] [address] [place] [address] Vandana Jay CRNP [address] [place] [address] 08/17/2024 1:30 PM EST Cardiac Studies Cardiac Studies, [facility] [address] [place] [address] 08/17/2024 3:00 PM EST Office Visit Cardiology, [facility] [address] [place] [address] Oumar Rojas MD [address] [place] [address] Scheduled Orders Name Type Priority Associated Diagnoses Orde r Schedule ECHO, COMPLETE (2D), TRANS-THORACIC Echocardiology Routine HTN, goal below 150/90 CAD S/P percutaneous coronary angioplasty S/P TAVR (transcatheter aortic valve replacement) Severe aortic stenosis LBBB (left bundle branch block) PAD (peripheral artery disease) ([facility]) PAF (paroxysmal atrial fibrillation) ([facility]) Expected: 08/03/2023, Expires: 09/02/2025 ECHO, COMPLETE (2D), TRANS-THORACIC Echocardiology Routine HTN, goal below 150/90 CAD S/P percutaneous coronary angioplasty S/P TAVR (transcatheter aortic valve replacement) Severe aortic stenosis LBBB (left bundle branch block) PAD (peripheral artery disease) ([facility]) PAF (paroxysmal atrial fibrillation) ([facility]) Expected: 05/23/2024, Expires: 09/02/2025 Health Maintenance Due Date Last Done Comments Depression Screening 05/18/2021 05/18/2020 COVID-19 Vaccine (2022- 4 season) 2023 07/18/2021, 12/25/2020, 12/04/2020 TSH 05/29/2024 05/29/2023, 12/21, 12/02/2022, Additional history exists Zoster Vaccines Completed 06/03/2018, 02/19, 09/29/2007 Influenza Vaccine (FLU shot) Completed , 06/23/2022, 06/06/2020, Additional history exists documented as of this encounter Medical Devices Implanted Type Area Guitar Player Device Identifier Shelf Expiration Date Model / Serial / Lot Lens Intraoc 19.5 - [id number] - [id number] Implanted:Qty: 1 on 01/22/2021 by Julio Cesar Alvarado MD at OR [facility] Left: Eye [employer]OMB 08/20/2025 [id number] / [id number] / [id number] Lens Intraoc 21.0 - [id number] - [id number] Implanted:Qty: 1 on 02/05/2021 by Julio Cesar Alvarado MD at OR [facility] Right: Eye BAUSCH [employer] LOMB 08/20/2025 [id number] / [id number] / [id number] Stent Synergy Xd Mr 3.92d69rg - [id number] Implanted:Qty: 1 on 05/22/2023 by Oumar Rojas MD at [facility] [employer] [id number] 02/17/2024 [id number] 2300 / / [id number] Valve Ned 3 Ultra 23mm - [id number] Implanted:Qty: 1 on 06/16/2023 by Oumar Rojas MD at [facility] [employer] [id number] 06/26/2024 [id number] / / documented as of this encounter Procedures Procedure Name Priority Date/Time Associated Diagnosis Comments TN ECG ROUTINE ECG W/LEAST 12 LDS W/I&R Routine 08/03/2023 9:46 AM EST HTN, goal below 150/90 CAD S/P percutaneous coronary angioplasty S/P TAVR (transcatheter aortic valve replacement) Severe aortic stenosis LBBB (left bundle branch block) PAD (peripheral artery disease) ([facility]) PAF (paroxysmal atrial fibrillation) ([facility]) documented in this encounter Results * EKG (08/03/2023 9:46 AM EST) 08/03/2023 9:46 AM EST Narrative Procedure Note Felix Ortega, DO - 08/03/2023 9:46 AM EST REASON FOR STUDY: routine CONCLUSIONS: Sinus rhythm with Premature atrial complexes Left bundle branch block Abnormal ECG When compared with ECG of 23-JUN-2023 10:26, Premature atrial complexes are now Present Ventricular Rate: 66 Atrial Rate: 66 TN Interval: 164 QRS Duration: 122 QT/QTc: 440/461 ms P-R-T [place]: 1 : -1 : -88 degrees Vandana OCASIO EKG [place] [employer] documented in this encounter Visit Diagnoses Diagnosis S/P TAVR (transcatheter aortic valve replacement)- Primary Heart valve replaced by other means Severe aortic stenosis Aortic valve disorders LBBB (left bundle branch block) Other left bundle branch block PAF (paroxysmal atrial fibrillation) ([facility]) Atrial fibrillation CAD S/P percutaneous coronary angioplasty Coronary atherosclerosis of [place] coronary artery HTN, goal below 150/90 PAD [...] the patient have Health Care Power of Curriculum Development Manager? No Care Teams Implementation Architect Relationship Specialty Start Date End Date Andrea Winters MD [address] [place] [address] PCP - General Family Medicine 11/08/18 documented as of this encounter
--- OUTSIDE RECORDS SUMMARY | 2023-12-31 00:37 | External Medical Summary | Summary of Care ---
Author Name Unknown Organization [facility] Address [address] [place] [address] Phone [phone] Care Team Providers Care Software Developer Mid Level Name Role Phone Emily Winters MD Primary Care Provider [phone] Reason for Visit * Reason Comments eRx-Medication Refill Encounter Details Date Type Department Care Team (Late st Contact Info) Description 07/18/2023 Refill Pharmacy, [place] [address] [place] [address] Emily Winters MD [address] [place] [address] Allergies No known active allergiesdocumented as of this encounter (statuses as of 07/20/2023) Medications Medication Sig Dispensed Refills Start Date End Date Status ALCOHOL PREP PADS PADSIndications:DM type 2, not at goal ([facility]) use twice daily 200 3 10/21/2006 Active [...] A1c goal of less than 8.0% ([facility]) Dx 11.9 Test twice Daily 200 Strip 3 12/12/2021 Active COVID-19 mRNA Vaccine (ForeUp) 30 MCG/0.3ML Intramuscular Suspension 0 07/18/2021 Active metFORMIN HCl 500 MG Oral Tablet (Glucophage)Indicat ions:Type 2 diabetes mellitus with hemoglobin A1c goal of less than 8.0% ([facility]) TAKE 1 TABLET TWICE A DAY WITH [...] A WEEK 6 mL 3 07/20/2023 Active Trulicity 4.5 MG/0.5ML Subcutaneous Solution Pen-injector (Dulaglutide) INJECT THE CONTENTS OF 1 PEN (4.5 MG) UNDER THE SKIN ONCE A WEEK 6 mL 3 06/09/2022 07/20/20 23 Discontinued documented as of this encounter (statuses as of 07/20/2023) Active Problems Problem Noted Date Diagnosed Date [...] as of this encounter (statuses as of 07/20/2023) Resolved Problems Problem Noted Date Diagnosed Date [...] as of this encounter (statuses as of 07/20/2023) Immunizations Name Administration Dates Next Due COVID-19 [...] encounter Miscellaneous Notes * Telephone Encounter - Jarrod London RPh - 07/20/2023 8:02 AM EDT Signed Prescriptions: Disp Refills Trulicity 4.5 MG/0.5ML Subcutaneous Soluti*6 mL 3 Sig: INJECT THE CONTENTS OF 1 PEN (4.5 MG) UNDER THE SKIN ONCE A WEEKAuthorizing Provider: EMILY WINTERS User: JARROD LONDON documented in this encounter Plan of Treatment Upcoming Encounters Date Type Department Care Team (Late st Contact Info) Description 07/29/2023 9:30 AM EST Laboratory [facility], [facility] [address] [facility] [phone] Alexa Mariscal [facility] [address] 08/03/2023 10:00 AM EST Office Visit Cardiology, [facility] [address] [facility] [address] Vandana [facility] CR[facility] [address] [facility] [address] 08/11/2023 3:15 PM EST Office Visit Cardiology, [facility] [address] [facility] [address] Marina Rios, [address] [place] [address] 08/24/2023 3:00 PM EST Office Visit Nephrology, [facility] [address] [facility] [place], [place] [address] Rowdy Cee MD [address] [facility] [place], [place] [address] 08/27/2023 10:00 AM EST [facility] [place] [address] [facility] [address] [place] [address] [facility] [address] 08/28/2023 12:00 PM EST Cardiac Studies Card[facility] Studies, [place] [address] [facility] [address] 12/04/2023 9:40 AM EDT Office Visit Family Practice, [place] [address] [facility] [place] [id number] Emily Winters MD [address] [facility] [place] [id number] Health Maintenance Due Date Last Done Comments Depression Screening 05/18/2021 05/18/2020 COVID-19 Vaccine (2022-2 4 season) 2023 07/18/2021, 12/25/2020, 12/04/2020 TSH 05/29/2024 05/29/2023, 12/21, 12/02/2022, Additional history exists Zoster Vaccines Completed 06/03/2018, 02/19, 09/29/2007 Influenza Vaccine (FLU shot) Completed , 06/23/2022, 06/06/2020, Additional history exists documented as of this encounter Medical Devices Implanted Type Area Scout Device Identifier Shelf Expiration Date Model / Serial / Lot Lens Intraoc 19.5 - [id number] - [id number] Implanted:Qty: 1 on 01/22/2021 by Julio Cesar Alvarado MD at OR [facility] Left: Eye BAUSCH [employer] LOMB 08/20/2025 [id number] / [id number] / [id number] Lens Intraoc 21.0 - [id number] - [id number] Implanted:Qty: 1 on 02/05/2021 by Julio eCsar Alvarado MD at OR [facility] Right: Eye BAUSCH & LOMB 08/20/2025 [id number] / [id number] / [id number] Stent Synergy Xd Mr 3.18m53oj - [id number] Implanted:Qty: 1 on 05/22/2023 by Oumar Rojas MD at [facility] [email or web address] [id number] 02/17/2024 [id number] 2300 / / [id number] Valve Ned 3 Ultra 23mm - [id number] Implanted:Qty: 1 on 06/16/2023 by Oumar Rojas MD at [facility] [employer] [id number] 06/26/2024 [id number] / / documented as of this encounter [...] the patient have Health Care Power of Reject Opener And Filler? No Care Teams Software Developer Mid Level Relationship Specialty Start Date End Date Emily Winters MD [address] [place] [address] PCP - General Family Medicine 11/08/18 documented as of this encounter
--- OUTSIDE RECORDS SUMMARY | 2023-12-31 00:37 | External Medical Summary | Summary of Care ---
Author Name Unknown Organization [facility] Address [address] [place] [address] Phone [phone] Care Team Providers Care Online Retailer Name Role Phone Andrea Winters MD Primary Care Provider [phone] Reason for Visit * Reason Comments Chronic Kidney Disease (CKD) Encounter Details Date Type Department Care Team (Late st Contact Info) Description 08/24/2023 3:00 PM EST Office Visit Nephrology, Oz Jaquez [address] [facility] [place] [address] Rowdy Cee MD [address] [facility] [place] [address] Stage 3a chronic kidney disease (HCC)*; HTN, goal below 150/90; Type 2 diabetes mellitus with hemoglobin A1c goal of less than 8.0% (HCC) Allergies No known active allergiesdocumented as of this encounter (statuses as of 08/24/2023) Medications Medication Sig Dispensed Refills Start Date [...] goal of less than 8.0% ([facility]) Dx 11.9 Test twice Daily 200 Strip 3 12/12/2021 Active COVID-19 mRNA Vaccine (Pfizer) 30 MCG/0.3ML Intramuscular Suspension 0 07/18/2021 Active metFORMIN HCl 500 MG Oral Tablet (Glucophage)Indicatio ns:Type 2 diabetes mellitus with hemoglobin A1c goal of less than 8.0% ([facility]) TAKE 1 TABLET TWICE A DAY [...] branch block),PAD (peripheral artery disease) ([facility]),PAF (paroxysmal atrial fibrillation) ([facility]) Take 1 Tablet by mouth in the morning and 1 Tablet before bedtime. 180 Tablet 3 08/03/2023 Active Clopidogrel Bisulfate 75 MG Oral Tablet (pLAVix) Take 1 Tablet by mouth in the morning. 90 Tablet 3 08/04/2023 Active documented as of this encounter (statuses as of 08/24/2023) Active Problems Problem Noted Date Diagnosed Date [...] as of this encounter (statuses as of 08/24/2023) Resolved Problems Problem Noted Date Diagnosed Date [...] as of this encounter (statuses as of 08/24/2023) Immunizations Name Administration Dates Next Due COVID-19 [...] Sign Reading Time Taken Comments Blood Pressure 121/52 08/24/2023 11:10 AM EST Pulse 73 08/24/2023 11:10 AM EST Temperature 35.9 C (96.7 F) 08/24/2023 1 1:10 AM EST Respiratory Rate - - Oxygen Saturation - - Inhaled Oxygen Concentration - - Weight 70.6 kg (155 lb 11.2 oz) 023 11:10 AM EST Height - - Body Mass Index 25.91 06/16/2023 5:01 PM EDT documented in this [...] as of this encounter Progress Notes * Rowdy Cee MD - 08/24/2023 11:13 AM EST Chief Complaint Patient presents with Chronic Kidney Disease (CKD) SUBJECTIVE: Background: Patient is a 88 year old male with ckd stage 3 with microalbuminuria with creatinine of1.4---1.6 lately with no proteinuria from diabetes and hypertension. Pt with diabetes for over 20 yrs. No retinopathy. No neuropathy. Pt with hypertension which is well controlled. Quit tobacco about40 yrs ago. Patient has history of right lung lobectomy for suspected lung nodule which turned out benign per patient report. No more nsaids for several years. History of prostate cancer status post open radical prostatectomy in the while living in [place]. 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 Since last visit 12/11- acc with who provides most of history and is very accurate. Patient had3 cardiac stent placed as well as TAVR done in May 2023 at [facility]. No majorcomplication other than some transient bundle-branch block. There is ongoing discussion regarding need of pacemaker but has not been confirmed yet. Patient and surprised that he daily did not have any symptoms prior to the procedure and he does not feel any better or worse after the procedure. No dysuria or gross hematuria. NSAID: No Renal Stone: No Herbal Medication: Vit D HISTORY: Current Outpatient Medications Medication Sig Dispense Refill [...] mouth in the morning. 90 Tablet 3 COVID-19 mRNA Vaccine (Triductor) 30 MCG/0.3ML Intramuscular Suspension No current facility-administered medications for this visit. Review of patient's allergies indicates: No Known Allergies Past Medical History: Diagnosis Date Benign neoplasm [...] by Oumar Rojas MD at [facility] COLONOSCOPY W/ LESION REMOVAL, SNARE 11/10/08 villous adenoma, recommend f/u in 1 year COLONOSCOPY, DIAGNOSTIC (RECTUM) 08/12/2013 COLONOSCOPY FLEXIBLE PROXIMAL DIAGNOSTIC performed by Gabriele Ackerman MD at ENDOSCOPY [facility] COLORECTAL CANCER SCREEN; COLON 04/22/2010 done diverticulosis repeat in 3 years CORONARY ANGIOGRAPHY W/LEFT HEART CATH N/A 05/05/2023 CORONARY ANGIOGRAPHY W/LEFT HEART CATH performed by Oumar Rojas MD at [facility] INSERT MULTI-COMP PROSTHESIS, PENIS rectal polyp RADICAL PROSTATE REMOVAL REMOVAL OF APPENDIX REMOVE CATARACT, INSERT LENS PROSTH Left 01/22/2021 LEFT EXTRACAPSULAR CATARACT REMOVAL WITH INTRAOCULAR LENS performed by Julio Cesar Alvarado MD at [facility] REMOVE CATARACT, INSERT LENS PROSTH Right 02/05/2021 RIGHT EXTRACAPSULAR CATARACT REMOVAL WITH INTRAOCULAR LENS performed by Julio Cesar Alvarado MD at [facility] REPLACE AORTIC VALVE, PERCUTANEOUS FEMORAL Bilateral 06/16/2023 REPLACE AORTIC VALVE, PERCUTANEOUS FEMORAL performed by Oumar Rojas MD at [facility] REPLACE AORTIC VALVE, PERCUTANEOUS FEMORAL Bilateral 06/16/2023 REPLACE AORTIC VALVE, PERCUTANEOUS FEMORAL performed by Felix Malagon MD at [facility]ARD[facility] SINGLE LOBECTOMY, LUNG abnormal "spot" . removed [place], [place] Family History Problem Relation Age of Onset Other (CKD, ESRD, nephrolithiasis) None Social History Socioeconomic History Marital status: Spouse [...] Social History Narrative Retired. Previously worked for [employer]. Retired from [employer] Strain: Not on [...] on file Housing Stability: Not on file REVIEW OF SYSTEMS General: No fatigue, No change in weight Head: No significant headache Respiratory: No cough,No wheezing, No shortness of breath Cardiovascular:No chest pain, No palpitations, and No syncope Urinary: No dysuira, No hematuria. No flank pain Musculoskeletal: No edema Skin: No itching All other systems were reviewed and were negative. OBJECTIVE: BP 121/52 (BP Site: Left Arm, BP Position: Sitting, BP Cuff Size: Regular) | Pulse 73 | Temp 35.9 C (96.7 F) (Tympanic) | Wt 70.6 kg (155 lb 11.2 oz) | BMI 25.91 kg/m | BSA 1.8 m Wt Readings from Last 1 Encounters: 08/24/23 70.6 kg (155 lb 11.2 oz) General appearance: alert, no apparent distress. HEAD: Normocephalic, No masses, lesions, tenderness Respiratory: clear to auscultation, no rhonchi and no wheezes Heart: regular rate and regular rhythm Abdomen: abdomen soft, non-tender and no CVA tenderness EXTREMITIES: no edema, Skin: skin color, texture, turgor are normal NEURO: alert & oriented x 3 with fluent speech, no focal motor/sensory deficits No tremor Last 4 BP Readings: BP Readings from Last 4 Encounters: 08/24/23 121/52 08/11/23 128/72 08/03/23 128/72 06/24/23 128/60 Last 3 Weights: Wt Readings from Last 3 Encounters: 08/24/23 70.6 kg (155 lb 11.2 oz) 08/11/23 70.1 kg (154 lb 9.6 oz) 08/03/23 69.9 kg (154 lb) Estimated body mass index is 25.91 kg/m as calculated from the following: Height as of 06/16/23: 1.651 m (5' 5"). Weight as of this encounter: 70.6 kg (155 lb 11.2 oz). LABS: Latest Reference Range & Units 05/18/20 09:15 03/12/21 14:41 11/08/21 11:14 03/07/22 08:50 06/03/22 00:00 08/18/22 09:01 Sodium 135 - 146 mmol/L 141 140 135 142 140 Potassium 3.5 - 5.1 mmol/L 4.7 4.8 4.4 4.0 5.0 POTASSIUM-OUTSIDE LAB 3.6 - 5.1 MMOL/L 3.9 (E) Chloride 98 - 107 mmol/L 97 (L) 98 92 (L) 100 98 CO2 22 - 32 mmol/L 30 30 27 26 28 BUN 6 - 20 mg/dL 23 (H) 26 (H) 29 (H) 28 (H) 23 (H) Creatinine 0.6 - 1.2 mg/dL 1.5 (H) 1.4 (H) 1.5 (H) 1.5 (H) 1.5 (H) CREATININE-OUTSIDE LAB 0.6 - 1.5 MG/DL 1.3 (E) Estimated Glomerular Filtration Rate >=60 mL/min 41.6 (L) 45.6 (L) 43 (L) 46 (L) 45 (L) EGFR-OUTSIDE LAB ML/MIN 55.4 (E) Anion Gap 7 - 15 mmol/L 14 12 16 (H) 16 (H) 14 Glucose 70 - 120 mg/dL 189 (H) 250 (H) 543 (HH) 171 (H) 236 (H) Latest Reference Range & Units 09/30/17 08:33 11/08/18 10:38 08/24/19 10:03 12/02/22 14:49 Albumin / Creatinine Ratio, Urine <30 mg/g creat <15 143 (H) 212 (H) ALBUMIN / CREATININE RATIO, URINE Rpt Rpt ! Rpt ! Protein/ Creatinine Ratio, Urine <150 mg/g 329 (H) PROTEIN/ CREATININE RATIO, URINE Rpt ! IMAGING: Narrative & Impression EXAM US RENAL/AORTA COMPLETE - 11/29/2015 12:54 PM HISTORY check for medical renal disease and size of kidneys TECHNIQUE Real time imaging. COMPARISON None. FINDINGS The kidneys are normal in size and shape. The right kidney measures approximately 10.2 x 5.6 x 6.2 cm. The left kidney measures approximately 9.5 x 5.3 x 5.4 cm. Renal cortical thickness is maintained, but echogenicity is increased bilaterally, consistent with an element of chronic medical renal disease.There is no convincing evidence of renal mass and there is no hydronephrosis seen. There are no shadowing calculi. The bladder is normal in appearance. The aorta is not dilated. Incidental note made of a right pleural effusion. IMPRESSION Findings consistent with an element of chronic medical renal disease. No acute renal findings. Right pleural effusion noted. ASSESSMENT/PLAN: Stage 3a chronic kidney disease (HCC) (Primary) Patient with the CKD stage 3 due to diabetic nephropathy/HTN/Age. He has no signs of volume overload. Has Mild type 4 RTA. Electrolytes are stable some hx of hyperkalemia. K is better on a potassium restricted diet with HCTZ. Risk of ESRD is very low. Normal exam and no symptoms Even with cardiac stent as well as TAVR there was no significant decline in his kidney function. Most recent labs on July 29, 2023 was reviewed and shows stable kidney function and electrolytes. No need of labs today HTN, goal below 150/90 At goal today . No changes in medication today. Not on Roque/Arb because of history of persistent hyperkalemia. Since being on hydrochlorothiazide and slight later reduced potassium diet--potassium has been normal Type 2 diabetes mellitus with hemoglobin A1c goal of less than 8.0% ([facility]) A1c at 8.2 with last assessment - pt now with all medications and cont care with MTM Follow Up: Return in about 6 months (around 02/23/2024) for Clinic Visit. | For: Clinic Visit I spent a total of 40-54 minutes (exact time 41 mins) on the date of service in preparation, delivery, and documentation of the care provided to Anibal Maurer excluding any time spent in the performance of separately billed services. Rowdy Cee MD documented in this encounter Nursing Notes * Johanna Costa LPN - 08/24/2023 11:10 AM EST Return patient- pt was in [place] in May. Had aortic valve replacement. Pt stated no swelling in legs. Stated no concerns today documented in this encounter Plan of Treatment Upcoming Encounters Date Type Department Care Team (Late st Contact Info) Description 08/27/2023 10:00 AM EST Office Visit Pharmacy, [place] [address] [facility], [place] [address] [facility] [address] [facility] [address] 08/28/2023 12:00 PM EST Cardiac Studies Cardiac Studies, [place] [address] [place] [facility] [place] [address] 09/29/2023 3:30 PM EST Office Visit [facility], [facility] [address] [facility] [address] Vandana Martin CRNP [address] [place] [address] [place] [phone] 12/04/2023 9:40 AM EDT Office Visit Family [facility], [place] [address] [facility] [phone] Andrea Winters MD [address] [place] [facility] [place] [address] 12/30/2023 11:00 AM EDT Office Visit Cardiology, [facility] [address] [facility] [place] [address] Vandana Jay CRNP [address] [facility] [address] 05/30/2024 2:40 PM EDT Office Visit Nephrology, Oz Jaquez [address] [place] [address] Rowdy Cee MD [address] [place] [address] 08/17/2024 1:30 PM EST Cardiac Studies Cardiac Studies, [facility] [address] [facility] [address] 08/17/2024 3:00 PM EST Office Visit Cardiology, [facility] [address] [facility] [place] [address] Oumar Rojas MD [address] [place] [address] Health Maintenance Due Date Last Done Comments Depression Screening 05/18/2021 05/18/2020 COVID-19 Vaccine (2022- 4 season) 2023 07/18/2021, 12/25/2020, 12/04/2020 TSH 05/29/2024 05/29/2023, 12/21, 12/02/2022, Additional history exists Zoster Vaccines Completed 06/03/2018, 02/19, 09/29/2007 Influenza Vaccine (FLU shot) Completed , 06/23/2022, 06/06/2020, Additional history exists documented as of this encounter Medical Devices Implanted Type Area Float Remover Device Identifier Shelf Expiration Date Model / Serial / Lot Lens Intraoc 19.5 - [id number] - [id number] Implanted:Qty: 1 on 01/22/2021 by Julio Cesar Alvarado MD at OR [facility] Left: Eye [employer] 08/20/2025 [id number] / [id number] / [id number] Lens Intraoc 21.0 - [id number] - [id number] Implanted:Qty: 1 on 02/05/2021 by Julio Cesar Alvarado MD at OR [facility] Right: Eye BAUSCH [employer] LOMB 08/20/2025 [id number] / [id number] / [id number] Stent Synergy Xd Mr 3.34x85qv - [id number] Implanted:Qty: 1 on 05/22/2023 by Oumar Rojas MD at [facility] [employer] [id number] 02/17/2024 [id number] / / [id number] Valve Ned 3 Ultra 23mm - [id number] Implanted:Qty: 1 on 06/16/2023 by Oumar Rojas MD at [facility] [employer] [id number] 06/26/2024 [id number] / / documented as of this encounter Visit Diagnoses Diagnosis Stage 3a chronic kidney disease (HCC)- Primary HTN, goal below 150/90 Type 2 diabetes mellitus with hemoglobin A1c [...] the patient have Health Care Power of Pressroom Worker? No Care Teams Online Retailer Relationship Specialty Start Date End Date Andrea Winters MD [address] [place] [facility] [place] [address] PCP - General Family Medicine 11/08/18 documented as of this encounter
--- OUTSIDE RECORDS SUMMARY | 2023-12-31 00:37 | External Medical Summary ---
Author Name Unknown Address Unknown Organization [id number]:[facility] [address] [facility] [address] Laboratory Report Ordering Provider Test Date Status VAL DIAZ 07/29/2023 09:17:06 Final Observation Date Value Abnormality Reference (Units ) Status HbA1C 07/29/2023 09:17:06 8.2 Above high normal 4. 0-5.6 (%) Final The use of HbA1c to monitor glycemic status is based on normal hemoglobin and HbA composition. This test should not be used in patients with abnormal hemoglobin that affects the half life of the red blood cell or the in vivo glycation rates. Glucose, estimated average 07/29/2023 09:17:06 189 Above high normal <126 (mg/dL) Jorge valdez Performing Location [facility] [place] [address] [facility] [address]
--- OUTSIDE RECORDS SUMMARY | 2023-12-31 00:38 | External Medical Summary | Summary of Care ---
Author Name Unknown Organization [facility] Address [address] [place] [address] Phone [phone] Care Team Providers Care Cup Machine Operator Name Role Phone Andrea Winters MD Primary Care Provider [phone] Encounter Details Date Type Department Care Team Description 07/07/2023 Tractor Trailer Moving Van Driver Care Coordination [address] [place], [place] [id number] Marina Rodriguez RN [address] [place], [place] [phone] Aortic valve stenosis, etiology of cardiac valve disease unspecified* Allergies No known active allergiesdocumented as of this encounter (statuses as of 07/07/2023) Medications Medication Sig Dispensed Refills Start Date [...] Strip 3 12/12/2021 Active COVID-19 mRNA Vaccine (CallResto) 30 MCG/0.3ML Intramuscular Suspension 0 07/18/2021 Active [...] the morning and 0.5 Tablets before bedtime. 30 Tablet 3 06/28/2023 Active documented as of this encounter (statuses as of 07/07/2023) Active Problems Problem Noted Date LBBB (left bundle branch block) 06/17/20 23 S/P TAVR (transcatheter aortic valve rep lacement) 06/16/2023 CAD S/P percutaneous coronary angioplast y 05/22/2023 Stage 3b chronic kidney disease 12/03/19 Prostate cancer 11/16/2019 Diabetes mellitus with stage 3 chronic k idney disease 11/08/2018 Hypertensive kidney disease with chronic kidney disease stage III 11/08/2018 Ischemic bowel syndrome 11/08/2018 Aortic valve stenosis 07/30/2018 History of prostatectomy 07/07/2018 HTN, goal below 150/90 11/27/2015 Obstructive uropathy 04/12/2015 Type 2 diabetes mellitus with hemoglobin A1c goal of less than 8.0% 09/18/2014 Overview: ICD-10 update of inactive term Vitamin D deficiency 08/08/2011 Dyslipidemia, goal LDL below 70 09/04/20 Overview: Per Lipid Taxonomy. Kidney disease, chronic, stage III (GFR 30-59 ml/min) 10/22/2007 Overview: Based on labs from 07/19/07 ADVANCE DIRECTIVE INFORMATION 05/29/2006 Overview: Pt instructed to bring in copy of living will Trigger finger 02/27/2006 Hypothyroidism 02/27/2006 documented as of this encounter (statuses as of 07/07/2023) Resolved Problems Problem Noted Date Resolved Date HTN, goal below 140/90 06/24/2012 6 HTN, goal below 130/80 10/17/2009 2 Overview: Per HTN Taxonomy. DM type 2, not at goal 07/28/2007 4 MALIGN NEOPL PROSTATE 02/27/2006 07/07/2018 HTN, goal below 140/90 02/27/2006 0 Overview: Per HTN Taxonomy. Dyslipidemia, goal to be determined 02/27/2006 09/04/2009 Overview: Per Lipid Taxonomy. Type 2 diabetes mellitus wit h hemoglobin A1c goal of less than 7.0% 02/27/2006 09/18/2014 Overview: ICD-10 update of inactive term documented as of this encounter (statuses as of 07/07/2023) Immunizations Name Administration Dates Next Due COVID-19 mRNA, LNP-s, No Pre serve, 2-Dose Series (CallResto) 12/25/2020,12/04/2020 COVID-19, LNP-s, No Preserve , Antione-sucrose, [...] = 0.6 oz pur e alcohol) quit Food Insecurity Answer Date Recorded Within the past 12 months, y ou worried that your food would run out before you got money to buy more. Never true 05/18/2020 Within the past 12 months, t he food you bought just didn't last and you didn't have money to get more. Never true 05/18/2020 Sex Assigned at Date Recorded Male 05/17/2019 1:43 PM E DT Job Start Date Occupation Industry Not on [...] Progress Notes * Marina Rodriguez RN - 07/07/2023 3:29 PM EDT S: Spoke with patient's Sandra O: Sandra states patient has some SOB with exertion at times Has a cough in the morning, no worse than it has been Denies LE edema or angina Has a fair appetite, denies bowel/bladder complaints No complaints of pain Patient sitting in his chair a lot, needs a lot of encouragement to move around Sandra asking about cardiac rehab, Epic reviewed, explained that the orders were sent to [facility] Sandra is hoping that if he gets started with in person cardiac rehab that he will move more A: Phone Follow Up P: --Do not add salt to food, avoid foods high in sodium -Limit fluids to 2 liters per day -Report the following: ->2 lb weight gain in one day or 5 lbs in a week to PCP -increased edema in feet, abdomen or hands -increased SOB and cough, especially if at night -increased fatigue or vertigo Marina Rodriguez, emergency detail driver, [place] [address] [facility] [address] documented in this encounter Plan of Treatment Upcoming Encounters Date Type Specialty Care Team Description 07/29/2023 Laboratory Laboratory [place] [place] [address] [facility] [address] 07/29/2023 Office Visit Cardiology Vandana Jay CRNP [address] [facility] [place] [address] 08/11/2023 Office Visit Cardiology Marina Rios DO [address] [place], [place] [address] [address] 08/24/2023 Office Visit Nephrology Rowdy Cee MD [address] [place] [address] 08/27/2023 Office Visit Pharmacy [facility] [address] [place] [address] 08/28/2023 Cardiac Studies Cardiac Studies 12/04/2023 Office Visit Family Medicine Andrea Winters MD [address] [place] [address] Health Maintenance Due Date Last Done Comments Depression Screening 05/18/2021 05/18/2020 COVID-19 Vaccine (2022-2 4 season) 2023 07/18/2021, 12/25/2020, 12/04/2020 TSH 05/29/2024 05/29/2023, 12/21, 12/02/2022, Additional history exists Zoster Vaccines Completed 06/03/2018, 02/19, 09/29/2007 Influenza Vaccine (FLU shot) Completed , 06/23/2022, 06/06/2020, Additional history exists documented as of this encounter Medical Devices Implanted Type Area Office Machines Wirer Device Identifier Shelf Expiration Date Model / Serial / Lot Lens Intraoc 19.5 - [id number] - [id number] Implanted:Qty: 1 on 01/22/2021 by Julio Cesar Alvarado MD at [facility] Left: Eye [employer]CH [employer]OMB 08/20/2025 [id number] / [id number] / [id number] Lens Intraoc 21.0 - [id number] - [id number] Implanted:Qty: 1 on 02/05/2021 by Julio Cesar Alvarado MD at [facility] Right: Eye BAUSCH & LOMB 08/20/2025 [id number] / [id number] / [id number] Stent Synergy Xd Mr 3.31a63ad - [id number] Implanted:Qty: 1 on 05/22/2023 by Oumar Rojas MD at [facility] [email or web address] [id number] 02/17/2024 [id number] / / [id number] Valve Ned 3 Ultra 23mm - [id number] Implanted:Qty: 1 on 06/16/2023 by Oumar Rojas MD at [facility] [employer] [id number] 06/26/2024 [id number] / / documented as of this encounter [...] the patient have Health Care Power of Hackler Doll Wigs? No Care Teams Cup Machine Operator Relationship Specialty Start Date End Date Andrea Winters MD [address] [place], [place] [phone] PCP - General Family Medicine 11/08/18 documented as of this encounter
--- OUTSIDE RECORDS SUMMARY | 2023-12-31 00:38 | External Medical Summary | Summary of Care ---
Author Name Unknown Organization [facility] Address [address] [place] [address] Phone [phone] Care Team Providers Care Stretching Machine Tender Frame Name Role Phone Andrea Winters MD Primary Care Provider [phone] Reason for Visit * Reason Onset Date Comments Cardiac Rehab 07/09/2023 Encounter Details Date Type Department Care Team Description 07/09/2023 Telephone Cardiology, [facility] [address] [place] [address] Sukhi Hoff, [address] [place] [address] Cardiac Rehab Allergies No known active allergiesdocumented as of this encounter (statuses as of 07/09/2023) Medications Medication Sig Dispensed Refills Start Date End Date Status ALCOHOL PREP PADS PADSIndications:DM type 2, not at goal ([facility]) use twice daily 200 3 10/21/2006 Active [...] goal of less than 8.0% ([facility]) Dx 11.9 Test twice Daily 200 Strip [...] goal of less than 8.0% ([facility]) TAKE 1 TABLET TWICE A DAY WITH [...] as of this encounter (statuses as of 07/09/2023) Active Problems Problem Noted Date LBBB (left bundle branch block) 09/27/20 23 S/P TAVR (transcatheter aortic valve rep lacement) 06/16/2023 CAD S/P percutaneous coronary angioplast y 05/22/2023 Stage 3b chronic kidney disease 12/03/19 23 Prostate cancer 11/16/2019 Diabetes mellitus with stage [...] 08/08/2011 Dyslipidemia, goal LDL below 70 09/04/20 09 Overview: Per Lipid Taxonomy. Kidney disease, chronic, stage III (GFR 30-59 ml/min) 10/22/2007 Overview: Based on labs from 07/19/07 ADVANCE DIRECTIVE INFORMATION 05/29/2006 Overview: Pt instructed to bring in copy of living will Trigger finger 02/27/2006 Hypothyroidism 02/27/2006 documented as of this encounter (statuses as of 07/09/2023) Resolved Problems Problem Noted Date Resolved Date [...] as of this encounter (statuses as of 07/09/2023) Immunizations Name Administration Dates Next Due COVID-19 [...] encounter Miscellaneous Notes * Telephone Encounter - Angelica Nair CMA - 07/09/2023 11:10 AM EDT Received call from [facility] Cardiac Rehab stating patient's called trying to get patient set up for services. There is an order on file but ordered for [facility] Cardiac Rehab - did verify with patient's that they prefer [place] closer. LOMN and records faxed to [facility]. documented in this encounter Plan of Treatment Upcoming Encounters Date Type Specialty Care Team Description 07/29/2023 Laboratory Laboratory Alexa Mariscal [address] [facility] [place] [address] 07/29/2023 Office Visit Cardiology Vandana Jay CRNP [address] [place] [address] 08/11/2023 Office Visit Cardiology Blanca Marina Cynthia, DO [address] [facility] [place] [address] 08/24/2023 Office Visit Nephrology Rowdy Cee MD 200 [place] [address] 08/27/2023 Office Visit Pharmacy [facility] [address] [place] [address] 08/28/2023 Cardiac Studies Cardiac Studies 12/04/2023 Office Visit Family Medicine Andrea Winters MD [address], [place] [phone] Health Maintenance Due Date Last Done Comments Depression Screening 05/18/2021 05/18/2020 COVID-19 Vaccine (2022-2 4 season) 2023 07/18/2021, 12/25/2020, 12/04/2020 TSH 05/29/2024 05/29/2023, 12/21, 12/02/2022, Additional history exists Zoster Vaccines Completed 06/03/2018, 02/19, 09/29/2007 Influenza Vaccine (FLU shot) Completed , 06/23/2022, 06/06/2020, Additional history exists documented as of this encounter Medical Devices Implanted Type Area Machine Or Machinery Mechanic Device Identifier Shelf Expiration Date Model / Serial / Lot Lens Intraoc 19.5 - [id number] - [id number] Implanted:Qty: 1 on 01/22/2021 by Julio Cesar Alvarado MD at OR [facility] Left: Eye BAUSCH & LOMB 08/20/2025 [id number] / [id number] / [id number] Lens Intraoc 21.0 - [id number] - [id number] Implanted:Qty: 1 on 02/05/2021 by Julio Cesar Alvarado MD at OR [facility] Right: Eye BAUSCH & LOMB 08/20/2025 [id number] / [id number] / [id number] Stent Synergy Xd Mr 3.06o23ea - [id number] Implanted:Qty: 1 on 05/22/2023 by Oumar Rojas MD at [facility] [employer] [id number] 02/17/2024 [id number] 2300 / / [id number] Valve Ned 3 Ultra 23mm - [id number] Implanted:Qty: 1 on 06/16/2023 by Oumar Rojas MD at [facility] [employer] [id number] 06/26/2024 [id number] / / documented as of this encounter [...] the patient have Health Care Power of Production Mechanic? No Care Teams Stretching Machine Tender Frame Relationship Specialty Start Date End Date Andrea Winters MD [address], [place] [phone] PCP - General Family Medicine 11/08/18 documented as of this encounter
--- OUTSIDE RECORDS SUMMARY | 2023-12-31 00:38 | External Medical Summary | Summary of Care ---
Author Name Unknown Organization [facility] Address [address] [place] [address] Phone [phone] Care Team Providers Care Food And Beverage Checker Name Role Phone Andrea Winters MD Primary Care Provider [phone] Reason for Visit * Reason Onset Date Comments Left Message 07/07/2023 Encounter Details Date Type Department Care Team Description 07/07/2023 Slip Mixer Telephone Care Coordination [address], [place] [phone] Marina Rodriguez RN [address], [place] [phone] Left Message Allergies No known active allergiesdocumented as of this encounter (statuses as of 07/07/2023) Medications Medication Sig Dispensed Refills Start Date End Date Status ALCOHOL PREP PADS PADSIndications:DM type 2, not at goal ([facility]) use twice daily 200 3 10/21/2006 [...] hemoglobin A1c goal of less than 8.0% ([facility]) Dx 11.9 Test twice Daily 200 Strip 3 12/12/2021 Active COVID-19 mRNA Vaccine ([email or web address]) 30 MCG/0.3ML Intramuscular Suspension 0 07/18/2021 Active Trulicity 4.5 MG/0.5ML Subcutaneous Solution Pen-injector (Dulaglutide) INJECT THE CONTENTS OF 1 PEN (4.5 MG) UNDER THE SKIN ONCE A WEEK 6 mL 3 06/09/2022 Active metFORMIN HCl 500 MG Oral Tablet (Glucophage)Indicatio ns:Type 2 diabetes mellitus with hemoglobin A1c goal of less than 8.0% ([facility]) TAKE 1 TABLET TWICE A DAY WITH [...] encounter Miscellaneous Notes * Telephone Encounter - Marina Rodriguez RN - 07/07/2023 3:07 PM EDT Follow-up Routine Attempted Phone Call First Attempt Call Outcome Left Voicemail/Message Plan To attempt another outreach Marina Rodriguez RN documented in this encounter Plan of Treatment Upcoming Encounters Date Type Specialty Care Team Description 07/29/2023 Laboratory Laboratory Alexa Mariscal [address] [place] [address] 07/29/2023 Office Visit Cardiology Vandana Jay CRNP [address] [place] [address] 08/11/2023 Office Visit Cardiology Marina Rios, DO [address] [place] [address] 08/24/2023 Office Visit Nephrology Rowdy Cee MD 200 [place] [address] 08/27/2023 Office Visit Pharmacy [facility] [address] [place] [address] 08/28/2023 Cardiac Studies Cardiac Studies 12/04/2023 Office Visit Family Medicine Andrea Winters MD [address] [place] [address] Health Maintenance Due Date Last Done Comments Depression Screening 05/18/2021 05/18/2020 COVID-19 Vaccine (2022- 4 season) 2023 07/18/2021, 12/25/2020, 12/04/2020 TSH 05/29/2024 05/29/2023, 12/21, 12/02/2022, Additional history exists Zoster Vaccines Completed 06/03/2018, 02/19, 09/29/2007 Influenza Vaccine (FLU shot) Completed , 06/23/2022, 06/06/2020, Additional history exists documented as of this encounter Medical Devices Implanted Type Area Hazardous Waste Management Specialist Device Identifier Shelf Expiration Date Model / Serial / Lot Lens Intraoc 19.5 - [id number] - [id number] Implanted:Qty: 1 on 01/22/2021 by Julio Cesar Alvarado MD at OR [facility] Left: Eye BAUSCH & LOMB 08/20/2025 [id number] / [id number] / [id number] Lens Intraoc 21.0 - [id number] - [id number] Implanted:Qty: 1 on 02/05/2021 by Julio Cesar Alvarado MD at OR [facility] Right: Eye BAUSCH & LOMB 08/20/2025 [id number] / [id number] / [id number] Stent Synergy Xd Mr 3.82c42rl - [id number] Implanted:Qty: 1 on 05/22/2023 by Oumar Rojas MD at [facility] [employer] [id number] 02/17/2024 [id number] 2300 / / [id number] Valve Ned 3 Ultra 23mm - [id number] Implanted:Qty: 1 on 06/16/2023 by Oumar Rojas MD at [facility] [employer] [id number] 06/26/2024 [id number] / / documented as of this encounter [...] the patient have Health Care Power of Network Intern? No Care Teams Food And Beverage Checker Relationship Specialty Start Date End Date Andrea Winters MD [address] [place] [address] PCP - General Family Medicine 11/08/18 documented as of this encounter
--- OUTSIDE RECORDS SUMMARY | 2023-12-31 00:38 | External Medical Summary | Summary of Care ---
Author Name Unknown Organization [facility] Address [address] [place] [address] Phone [phone] Care Team Providers Care Gear Shaper Name Role Phone Andrea Winters MD Primary Care Provider [phone] Reason for Visit * Reason Comments New Med Request Encounter Details Date Type Department Care Team ([facility] st Contact Info) Description 07/13/2023 Refill [facility] [address], [place] [phone] Cassy Benson MD [address], [place] [phone] Allergies No known active allergiesdocumented as of this encounter (statuses as of 07/14/2023) Medications Medication Sig Dispensed Refills Start Date End Date Status ALCOHOL PREP PADS PADSIndications:DM type 2, not at goal ([facility]) use twice daily 200 3 10/21/2006 [...] A1c goal of less than 8.0% ([facility]) Dx 11.9 Test twice Daily 200 Strip 3 12/12/2021 Active COVID-19 mRNA Vaccine (Access MediQuip) 30 MCG/0.3ML Intramuscular Suspension 0 07/18/2021 Active [...] before bedtime. 90 Tablet 0 07/14/2023 Active Apixaban 5 MG Oral Tablet (Eliquis) Take 0.5 Tablets by mouth in the morning and 0.5 Tablets before bedtime. 30 Tablet 3 06/28/2023 07/14/20 23 Discontinued documented as of this encounter (statuses as of 07/14/2023) Active Problems Problem Noted Date Diagnosed Date [...] as of this encounter (statuses as of 07/14/2023) Resolved Problems Problem Noted Date Diagnosed Date [...] as of this encounter (statuses as of 07/14/2023) Immunizations Name Administration Dates Next Due COVID-19 mRNA, LNP-s, No Pre serve, 2-Dose Series (Access MediQuip) 12/25/2020,12/04/2020 COVID-19, LNP-s, No Preserve , Antione-sucrose, [...] encounter Miscellaneous Notes * Telephone Encounter - Seth Chahal RPh - 07/14/2023 10:18 AM EDTSigned Prescriptions: Disp Refills Apixaban 5 MG Oral Tablet (Eliquis) 90 Tab*0 Sig: Take 0.5 Tablets by mouth in the morning and 0.5 Tablets before bedtime.Authorizing Provider: Michelle BENSON User: SETH CHAHAL * Telephone Encounter - Seth Chahal RPh - 07/14/2023 10:16 AM EDT Reissued balance of refills on current medication order(s) as a 90 day script. Thank you, Seth Chahal, PharmD Clinical Pharmacist [facility] ([facility]) 07/14/23 10:17 AM [phone] * Telephone Encounter - Seth Yu formerly [facility] - 07/14/2023 9:24 AM EDTPending Prescriptions: Disp Refills Eliquis 5 MG Oral Tablet [Pharmacy Med Nam* 0 documented in this encounter Plan of Treatment Upcoming Encounters Date Type Department Care Team (Late st Contact Info) Description 07/29/2023 9:30 AM EST Laboratory Laboratory, [facility] 132 [facility] [place] [phone] [facility] [address] 07/29/2023 10:00 AM EST Office Visit Cardiology, [facility] 132 [facility] [place] [address] Vandana Jay CRNP 132 [facility] [place] [address] 08/11/2023 3:15 PM EST Office Visit Cardiology, [facility] [address] [facility] [place] [address] Marina Rios, DO [address] [place] [address] [place] [address] 08/24/2023 3:00 PM EST Office Visit Nephrology, [facility] [address] [place] [address] Rowdy Cee MD [address] [place] [address] 08/27/2023 10:00 AM EST Office Visit Pharmacy, [facility] [address] [place] [address] [facility] [address] [place] [facility] [place] [address] 08/28/2023 12:00 PM EST Cardiac Studies Cardiac Studies, [facility] [address] [place] [facility] [place] [address] 12/04/2023 9:40 AM EDT Office Visit Family Practice, [facility] [address] [place] [facility] [place] [address] Andrea Winters MD [address] [place] [facility] [address] Health Maintenance Due Date Last Done Comments Depression Screening 05/18/2021 05/18/2020 COVID-19 Vaccine (2022- 4 season) 2023 07/18/2021, 12/25/2020, 12/04/2020 TSH 05/29/2024 05/29/2023, 12/21, 12/02/2022, Additional history exists Zoster Vaccines Completed 06/03/2018, 02/19, 09/29/2007 Influenza Vaccine (FLU shot) Completed , 06/23/2022, 06/06/2020, Additional history exists documented as of this encounter Medical Devices Implanted Type Area Neon Light Installer Device Identifier Shelf Expiration Date Model / Serial / Lot Lens Intraoc 19.5 - [id number] - [id number] Implanted:Qty: 1 on 01/22/2021 by Julio Cesar Alvarado MD at OR [facility] Left: Eye BAUSCH & LOMB 08/20/2025 [id number] / [id number] / [id number] Lens Intraoc 21.0 - [id number] - [id number] Implanted:Qty: 1 on 02/05/2021 by Julio Cesar Alvarado MD at [facility] Right: Eye BAUSCH & LOMB 08/20/2025 [id number] / [id number] / [id number] Stent Synergy Xd Mr 3.85t60bi - [id number] Implanted:Qty: 1 on 05/22/2023 by Oumar Rojas [place] [facility] [employer] [id number] 02/17/2024 [id number] 2300 / / [id number] Valve Ned 3 Ultra 23mm - [id number] Implanted:Qty: 1 on 06/16/2023 by Oumar Rojas MD [place] [facility] [employer] [id number] 06/26/2024 [id number] / / documented as of this encounter [...] the patient have Health Care Power of Truck Service Manager? No Care Teams Gear Shaper Relationship Specialty Start Date End Date Andrea Winters MD [address] [place] [address] PCP - General Family Medicine 11/08/18 documented as of this encounter
--- OUTSIDE RECORDS SUMMARY | 2023-12-31 00:38 | External Medical Summary | Summary of Care ---
Author Name Unknown Organization [facility] Address [address] [place] [address] Phone [phone] Care Team Providers Care Customer Relationship Specialist Name Role Phone Andrea Winters MD Primary Care Provider [phone] Reason for Visit * Reason Onset Date Comments Left Message 07/14/2023 Encounter Details Date Type Department Care Team (Late st Contact Info) Description 07/14/2023 Network Admin Telephone [facility] [address] [place] [address] Marina Rodriguez, RN [address] [place] [address] Left Message Allergies No known active allergiesdocumented [...] Telephone Encounter - Marina Rodriguez RN - 07/14/2023 1:20 PM EDT Follow-up Routine Attempted Phone Call First Attempt Call Outcome Left Voicemail/Message Plan To attempt another outreach Marina Rodriguez RN documented in this encounter Plan of Treatment Upcoming Encounters Date Type Department Care Team (Late st Contact Info) Description 07/29/2023 9:30 AM EST [facility] [address] [place] [address] Alexa Mariscal [address] [place] [address] 07/29/2023 10:00 AM EST [facility] [address] [place] [address] Vandana Jay CRNP [address] [place] [address] 08/11/2023 3:15 PM EST Office Visit Cardiology, [facility] [place] [address] Marina Rios, 400 [facility] [place] [address] 08/24/2023 3:00 PM EST Office Visit Nephrology, [facility] [address] [facility] [place] [address] Rowdy Cee MD [address] [facility] [place] [address] 08/27/2023 10:00 AM EST Office Visit Pharmacy, [place] [address] [place] [facility] [place] [address] [facility] [address] [place] [facility] [place] [address] 08/28/2023 12:00 PM EST Cardiac Studies Cardiac Studies, [place] [address] [place] [facility] [place] [address] 12/04/2023 9:40 AM EDT Office Visit Family Practice, [place] [address] [place] [facility] [place] [address] Andrea Winters MD [address] [facility] [place] [address] Health Maintenance Due Date Last Done Comments Depression Screening 05/18/2021 05/18/2020 COVID-19 Vaccine (2022-2 4 season) 2023 07/18/2021, 12/25/2020, 12/04/2020 TSH 05/29/2024 05/29/2023, 12/21, 12/02/2022, Additional history exists Zoster Vaccines Completed 06/03/2018, 02/19, 09/29/2007 Influenza Vaccine (FLU shot) Completed , 06/23/2022, 06/06/2020, Additional history exists documented as of this encounter Medical Devices Implanted Type Area Farm Technician Device Identifier Shelf Expiration Date Model / Serial / Lot Lens Intraoc 19.5 - [id number] - [id number] Implanted:Qty: 1 on 01/22/2021 by Julio Cesar Alvarado MD at OR [facility] Left: Eye BAUSCH & LOMB 08/20/2025 [id number] / [id number] / [id number] Lens Intraoc 21.0 - [id number] - [id number] Implanted:Qty: 1 on 02/05/2021 by Julio Cesar Alvarado MD at [facility] Right: Eye BAUSCH & LOMB 08/20/2025 [id number] / [id number] / [id number] Stent Synergy Xd Mr 3.26c82wv - [id number] Implanted:Qty: 1 on 05/22/2023 by Oumar Rojas MD at [facility] [employer] [id number] 02/17/2024 [id number] 2300 / / [id number] Valve Ned 3 Ultra 23mm - [id number] Implanted:Qty: 1 on 06/16/2023 by Oumar Rojas MD at [facility] [employer] [id number] 06/26/2024 [id number] / / documented as of this encounter [...] the patient have Health Care Power of Patient Service Specialist? No Care Teams Customer Relationship Specialist Relationship Specialty Start Date End Date Andrea Winters MD [address] [place] [address] PCP - General Family Medicine 11/08/18 documented as of this encounter
[2023-12-31 02:33] LABS: Hematocrit (blood only) 24.9 % (42.0-52.0); Hemoglobin 8.3 g/dl (14.0-18.0); Mean Corpuscular Hemoglobin 29.9 pg (25.0-34.0); Mean Corpuscular Hgb Conc 33.3 g/dL (32.0-36.0); Mean Corpuscular Volume 89.6 fL (80.0-100.0); Mean Platelet Volume 10.8 fL (9.4-12.4); Platelet Count 240 K/uL (130-400); RDW Coefficient of Variation 14.2 % (11.5-14.5); RDW Standard Deviation 46.1 fL (36.4-46.3); Red Blood Count 2.78 M/uL (4.70-6.10); White Blood Count 8.46 K/ul (4.8-10.8)
[2023-12-31 02:40] LABS: BUN Creatinine Ratio 16.5 (10-20); Calcium 9.3 mg/dl (8.6-10.3); Creatinine Clr Calc Pharmacy 27.6 ml/min; Est GFR (African American) 42.3 ml/min; Est GFR (Non-African American) 36.5 ml/min; Potassium 3.4 mmol/L (3.5-5.1)
[2023-12-31] MEDS: MELATONIN 3 MG TAB PO PRN (03:04)
[2023-12-31] MEDS: LEVOTHYROXINE SODIUM 88 MCG TABLET PO SCH (06:26)
[2023-12-31 07:17] LABS: Estimated Average Glucose 214 mg/dl; Hemoglobin A1C 9.1 % (4.5-5.6)
[2023-12-31] MEDS: hydroCHLOROthiazide 25 MG TAB PO SCH (09:13)
[2023-12-31] MEDS: POTASSIUM CHLORIDE CRTAB 20 MEQ TABCR PO STA (09:13)
[2023-12-31] MEDS: amLODIPine BESYLATE 5 MG TAB PO SCH (09:13)
[2023-12-31] MEDS: CHOLECALCIFEROL 25 MCG (1000 UNITS) TAB PO SCH (09:14)
[2023-12-31] MEDS: LANTUS PER UNIT CHARGE SQ SCH (09:48)
--- NOTE | 2023-12-31 11:11 | Cardiology Progress Note ---
Date of Service December 31, 2023 Assessment & Plan (1) Epistaxis: (2) Anemia: (3) Elevated troponin I level: (4) CAD (coronary artery disease), havasupai coronary artery: (5) S/P right coronary artery (RCA) stent placement: (6) S/P TAVR (transcatheter aortic valve replacement): (7) CKD (chronic kidney disease), stage III: (8) Paroxysmal atrial fibrillation: (9) LBBB (left bundle branch block): Plan 88-year-old male referred to the ER due to recent epistaxis and anemia in setting of chronic anticoagulation/antiplatelet therapy. Mildly elevated high- sensitivity troponin without signs/symptoms of acute coronary syndrome. Elevated troponin most likely due to demand ischemia/blood loss anemia. Nasal cauterization performed by ENT earlier today. Patient cleared to restart antiplatelet therapy. Recent complex PCI performed May 2023. Recommend Plavix 75 mg daily. Hold Eliquis. Patient previously evaluated by electrophysiology. AV patience blocking agents avoided due to history of left bundle branch block status post TAVR. He remains in sinus rhythm. Would likely require pacemaker implantation if AV patience blocking agents are required in future. Monitor H&H as per internal medicine. Maintain hemoglobin greater than 8.0 g/dL. No further inpatient cardiac testing or intervention recommended at this time. Outpatient cardiology follow-up in 2 to 4 weeks. Admission and Anticipated Discharge Date Admission Date: December 30, 2023 Subjective 88-year-old male seen and examined at the bedside. Prominent left anterior septum blood vessel cauterized by ENT this morning. Cleared to restart antiplatelet therapy. present at bedside. Offers no additional concerns/complaints. Patient is a poor historian. Hemoglobin trending downward to 8.3 g/dL today. No evidence of atrial fibrillation on telemetry. Remains in sinus rhythm. Patient is not chronically treated with AV patience blocking agents due to history of left bundle branch block status post TAVR implantation. ECG on admission demonstrating normal QRS duration. Review of Systems Review of Systems: All systems reviewed & are unremarkable except as noted in Subjective Physical Exam Constitutional: well nourished; no acute distress Respiratory: no respiratory distress, no labored breathing and no retractions Auscultation: lungs clear to auscultation bilaterally; no crackles, no rales, no rhonchi and no wheezes Cardiovascular: Rate/Rhythm: regular rate and regular rhythm Heart Sounds: normal S1, normal S2 and + murmur (2/6 elvis) Vessels: no JVD and no carotid bruit Gastrointestinal (Abdomen): Inspection/Auscultation: abdomen normal to inspection; abdomen not distended Percussion/Palpation: abdomen soft; abdomen nontender, no guarding and abdomen not rigid Neurologic: CN's II-XI intact bilaterally and moves all extremities Results & Data Vital Signs (Past 12 Hours) Vital Signs Temp Pulse Pulse Resp BP Pulse Ox O2 Del Method 12/31/23 08:00 62 16 111/59 L 95 Room Air 12/31/23 07:02 63 12/31/23 00:24 68 12/30/23 23:59 36.8 C 71 16 138/63 98 Room Air Laboratory Results Cardiac Enzymes 12/30/23 12/30/23 12/30/23 Range/Units 12:17 14:06 19:39 AST 24 (13-39) U/L Troponin I High Sens 127.5 H* 101.3 H* D 96.5 H* (0-20) pg/ml B-Natriuretic Peptide 120 H (0-100) pg/ml 12/31/23 Range/Units 02:07 AST (13-39) U/L Troponin I High Sens 96.6 H* (0-20) pg/ml B-Natriuretic Peptide (0-100) pg/ml Coagulation 12/30/23 12/30/23 Range/Units 12:17 14:06 PT 11.2 (9.0-12.0) Seconds APTT 24 (21-31) Seconds B-Natriuretic Peptide 120 H (0-100) pg/ml Lipids 12/31/23 Range/Units 02:07 Triglycerides 109 (0-150) mg/dl Cholesterol 73 (0-200) mg/dl HDL Cholesterol 37 mg/dl Cholesterol/HDL Ratio 2.0 (0-5) CBC 12/30/23 12/31/23 Range/Units 12:17 02:07 WBC 8.19 8.46 (4.8-10.8) K/ul RBC 3.19 L 2.78 L (4.70-6.10) M/uL Hgb 9.7 L 8.3 L (14.0-18.0) g/dl Hct 28.8 L 24.9 L (42.0-52.0) % Plt Count 285 240 (130-400) K/uL Neut # (Auto) 6.32 (1.40-6.50) K/uL Lymph # (Auto) 1.10 L (1.20-3.40) K/uL Alexander # (Auto) 0.56 (0.11-0.59) K/uL Eos # (Auto) 0.07 (0.00-0.50) K/uL Baso # (Auto) 0.09 (0.00-0.20) K/uL Comprehensive Metabolic Panel 12/30/23 12/31/23 Range/Units 12:17 02:07 Sodium 135 L 137 (136-145) mmol/L Potassium 4.2 3.4 L (3.5-5.1) mmol/L Chloride 98 102 (98-107) mmol/L Carbon Dioxide 30 30 (21-32) mmol/L BUN 30 H 27 H (6-23) mg/dl Creatinine 1.72 H 1.64 H (0.6-1.4) mg/dl Glucose 375 H* 81 (70-99(Fasting)) mg/dl Calcium 9.7 9.3 (8.6-10.3) mg/dl AST 24 (13-39) U/L ALT 22 (7-52) U/L Alkaline Phosphatase 89 (34-104) U/L Total Protein 6.1 (6.0-8.3) gm/dl Albumin 3.8 (3.4-5.0) gm/dl Intake and Output 12/30/23 12/31/23 12/31/23 22:59 06:59 14:59 Intake Total 50 / 100 50 / 100 Balance 50 / 100 50 / 100 Intake: Oral 50 / 100 50 / 100 Other: # Unmeasured Voids 1 1 Weight 65.9 kg Weight Measurement Method Built in [facility] (4) CAD (coronary artery disease), havasupai coronary artery [place] vs. transplanted heart: havasupai heart Associated angina: with stable angina Qualified Code(s): I25.118 - Atherosclerotic heart disease of havasupai coronary artery with other forms of angina pectoris
[2023-12-31] MEDS: CLOPIDOGREL BISULFATE 75 MG TAB PO SCH (11:16)
--- NOTE | 2023-12-31 14:28 | Hospitalist Progress Note ---
Date of Service December 31, 2023 Assessment & Plan (1) Anemia: (2) Hypertension: (3) Hypothyroidism: (4) Diabetes mellitus type 2, controlled: (5) Dyslipidemia: (6) CKD (chronic kidney disease), stage III: (7) Cerebrovascular disease: (8) S/P TAVR (transcatheter aortic valve replacement): Plan: 88 yo M with multiple complex comorbidities listed below, epistaxis on anticoagulation and new elevated troponin and dyspnea on exertion Acute blood loss anemia due to epistaxis - Pt is hgb of 9 today, previously on 12/02/23 hgb was 13.6 - Will hold eliquis and plavix - last took these meds this morning. Discussed with cards - Blood consented personally - if in case needs this overnight. Currently no need for transfusion. - ENT consult for epistasix, had appt but was at end of January - appreciate recs - Afrin jovanin -Appreciate ENT input and recommendation-will need to be follow-up in 2 weeks in ENTs office -No more epistaxis since admission -Hemoglobin is stable at 8.3 S/p TAVR - #23mm Lepe Ned S3 Ultra valve), 06/16/[address] Rojas at [facility] [place], New LBBB at that time -- again seen on EKG today. - At that time he did wear a Zio AT without Salomon arrhythmias or pauses. However, atrial fibrillation was seen. Started on Eliquis but AV patience blocking agents avoided due to slow resting heart rates. Evaluated by Dr. Rios on 08/11/2023--no pacemaker was recommended at that time and patient status remained stable in September follow-up. - Last echo from 08/2023 showing EF normal, TAVR gradients stable, mild paravalvular aortic valve prosthesis regurg present - Follows with [facility] as outpatient Dr. Hoff - Outpatient cardiology referred pt here for further eval due to nose bleeds and abdnomal EKG today concerning with new T-wave inversions in leads 1 and aVL. - Trop 127 --> 101.3, trend x 1 more set - Also noted is pt appears dyspneic on exertion. Sats of mid 90s on RA after walking to the bathroom. We can maintain oxygen with humidification as needed for exertional dyspnea. -Appreciate cardiology input and recommendation -No cardiac symptoms at this time -Will restart Plavix but no Coumadin on discharge -Will have cardiology follow-up in about 4 weeks Complex CAD - Prox-midRCA with heavily calcified 95% stenosis status post rotational atherectomy+ PCI with x3 overlapping DELORES from mid RCA to ostium-- ([id number], 2.5gdc91ik and 3.2iet33hl Synergy DELORES), per pre-TAVR cath 05/22/2023 - Holding plavix - Continue statin therapy Peripheral arterial disease, 80% RFA stenosis per cardiac catheterization 05/22/2023 - S/p shock wave lithotripsy of the left common iliac and left external iliac artery, 06/16/2023 - Cont statin therapy Paroxysmal atrial fibrillation, diagnosed 06/28/2023 per Zio monitor. - [id number] score of 4, on reduced dose Eliquis due to age and renal function - Holding eliquis as above -No Eliquis for now Hypertension Dyslipidemia - Home regimen:amlodipine, HCTZ DM II - ISS with accuchecks achs - Last A1C 8.4 on 12/02/23 -- will recheck with am labs since off Metformin mid November with uptrending glucoses. Was taken off metformin due to weight loss - consider ISS at home if not a candidate for metformin upon discharge. Hold Tr ulicity for now, last dose was Thursday. - Hyperglycemia with glucose of 375 upon admission , will trend -Continue with the current medications Hypothyroidism - Cont levothyroxine CKD stage III - Baseline Cr 1.4-1.5, upon admission is 1.72, BUN 30 - May likely be due to demand ischemia, volume depletion as above DVT ppx: teds, scds Lines: 1 PIV FEN/GI: Allow DM heart healthy diet for now CODE: DNR/DNI Remains medically stable and has had physical therapy recommended home He wants to go home and the will take him on this afternoon Admission and Anticipated Discharge Date Admission Date: December 30, 2023 Subjective 12/31/2023 The patient was seen and examined in emergency room in presence of the He was admitted with epistaxis which has been controlled now seen by ENT specialist He was seen by physician ophthalmologist and Plavix has been restarted He denies any cardiac symptoms Has had physical therapy and recommended home Review of Systems Review of Systems: All systems reviewed and are unremarkable except as noted below Physical Exam Physical Exam: Lying in bed without any acute distress Constitutional: + ill appearing and average body habitus Eyes: PERRL, conjunctivae normal, anicteric sclerae ENMT: external ear and nose normal, oropharynx normal Neck: trachea midline, no thyromegaly Respiratory: no respiratory distress Auscultation: lungs clear to auscultation bilaterally and + crackles (Minimal crackles at the bases) Cardiovascular: Rate/Rhythm: regular rate and regular rhythm; not tachycardic Heart Sounds: normal S1, normal S2 and + murmur Extremities: no edema Gastrointestinal (Abdomen): Inspection/Auscultation: normal bowel sounds; abdomen not distended Percussion/Palpation: abdomen soft; abdomen nontender Musculoskeletal: No acute arthritis involving any of the joint Neurologic: normal touch/pain/proprioception and moves all extremities; no focal motor deficits Generally very weak and lethargic Psychiatric: A+Ox3, euthymic affect Lymphatic: no cervical or axillary lymphadenopathy Results & Data Results & Data Vital Signs (Past 12 Hours) Vital Signs Pulse Pulse Resp BP Pulse Ox Pulse Ox O2 Del Method 12/31/23 12:01 97 12/31/23 08:00 62 16 111/59 L 95 Room Air 12/31/23 07:02 63 O2 Flow Rate 12/31/23 12:01 0 12/31/23 08:00 12/31/23 07:02 Laboratory Results Short CBC 12/31/23 Range/Units 02:07 WBC 8.46 (4.8-10.8) K/ul Hgb 8.3 L (14.0-18.0) g/dl Hct 24.9 L (42.0-52.0) % Plt Count 240 (130-400) K/uL BMP 12/31/23 02:07 Sodium 137 Potassium 3.4 L Chloride 102 Carbon Dioxide 30 BUN 27 H Creatinine 1.64 H Glucose 81 Calcium 9.3 Urine 12/30/23 Range/Units 15:14 Urine Color Yellow Urine Appearance Cloudy A (Clear) Urine pH 7.0 (4.5-7.5) Ur Specific [place] 1.019 (1.000-1.030) Urine Protein Trace H (Negative) Urine Glucose (UA) 3+ H (Negative) Medications Administered Current Inpatient Medications Acetaminophen (Acetaminophen 325 Mg Tab) 650 mg PO Q4H PRN PRN Reason: Moderate Pain (Scale 4, 5, 6) Stop: 01/29/24 18:38 Amlodipine Besylate (Amlodipine Besylate 5 Mg Tab) 10 mg PO DAILY [facility] Stop: 01/30/24 08:59 Last Admin: 12/31/23 09:13 Dose: 10 mg Atorvastatin Calcium (Atorvastatin 40 Mg Tab) 40 mg PO QPM [facility] Stop: 01/29/24 20:59 Last Admin: 12/30/23 23:21 Dose: 40 mg Clopidogrel Bisulfate (Clopidogrel Bisulfate 75 Mg Tab) 75 mg PO QAM [place] Stop: 01/30/24 11:14 Last Admin: 12/31/23 11:16 Dose: 75 mg Dextrose (Dextrose 50% 50 Ml Syringe) 25 - 50 ml IV UD PRN; Protocol PRN Reason: Hypoglycemia Protocol Stop: 01/29/24 18:22 Glucagon (Glucagon For Inj 1 Mg Vial) 1 mg SQ UD PRN; Protocol PRN Reason: Hypoglycemia Protocol Stop: 01/29/24 18:22 Glucose (Glucose 10 Tab/Tube) 4 - 8 tab PO UD PRN; Protocol PRN Reason: Hypoglycemia Treatment Stop: 01/29/24 18:22 Glucose (Glucose 40% Gel 15 Gm Tube) 15 - 30 gm PO UD PRN; Protocol PRN Reason: Hypoglycemia Protocol Stop: 01/29/24 18:22 Hydrochlorothiazide (Hydrochlorothiazide 25 Mg Tab) 25 mg PO DAILY [facility] Stop: 01/30/24 08:59 Last Admin: 12/31/23 09:13 Dose: 25 mg Insulin Aspart (Insulin Aspart Per Unit Charge) 0 units SC ACHS [facility] Stop: 01/29/24 18:38 Last Admin: 12/31/23 13:23 Dose: 7 units Insulin Glargine (Lantus Per Unit Charge) 20 units SQ DAILY [facility] Stop: 01/30/24 08:59 Last Admin: 12/31/23 09:48 Dose: 20 units Levothyroxine Sodium (Levothyroxine Sodium 88 Mcg Tablet) 88 mcg PO DAILYBB [facility] Stop: 01/30/24 06:29 Last Admin: 12/31/23 06:26 Dose: 88 mcg Melatonin (Melatonin 3 Mg Tab) 3 mg PO HS PRN PRN Reason: Sleep Stop: 01/29/24 23:05 Last Admin: 12/31/23 03:04 Dose: 3 mg Miscellaneous (Carbohydrates For Hypoglycemia ) 15 - 30 gm PO UD PRN PRN Reason: Hypoglycemia Protocol Stop: 01/29/24 18:22 Ondansetron HCl (Ondansetron Inj 2 Mg/Ml 2 Ml Vial) 4 mg IV Q4H PRN PRN Reason: Nausea And Vomiting Stop: 01/29/24 18:38 Vitamin D (Cholecalciferol 25 Mcg (1000 Units) Tab) 25 mcg PO DAILY [facility] Stop: 01/30/24 08:59 Last Admin: 12/31/23 09:14 Dose: 25 mcg
--- NOTE | 2023-12-31 14:46 | Communication Note ---
Date of Service: December 31, 2023 By CMS guidelines, a determination that the admission or continued stay is not medically necessary has been made by a member of the UR committee and a phys ician for this hospital stay, therefore a Code 44 will be completed and the Inpatient admission will be changed to outpatient.
--- OUTSIDE RECORDS SUMMARY | 2023-12-31 15:43 | External Medical Summary | Summary of Care ---
Author Name Unknown Organization [facility] Address [address] [place] [address] Phone [phone] Care Team Providers Care Technical Training Instructor Name Role Phone Andrea Winters MD Primary Care Provider [phone] Reason for Visit * Reason Comments NEW PATIENT Encounter Details Date Type Department Care Team (Late st Contact Info) Description 12/30/2023 11:00 AM EDT Office Visit Cardiology, [facility] [address] [facility] [place] [address] Vandana Jay CRNP [address] [place] [address] Severe aortic stenosis*; Epistaxis; S/P TAVR (transcatheter aortic valve replacement); LBBB (left bundle branch block); PAF (paroxysmal atrial fibrillation) ([facility]); CAD S/P percutaneous coronary angioplasty; HTN, goal below 150/90; PAD (peripheral artery disease) ([facility]) Allergies No known active allergiesdocumented as of this encounter (statuses as of 12/30/2023) Medications Medication Sig Dispensed Refills Start Date End Date Status ALCOHOL PREP PADS PADSIndications:DM type 2, not at goal ([facility]) use twice daily 200 3 [...] hemoglobin A1c goal of less than 8.0% ([facility]) Dx 11.9 Test twice Daily [...] (left bundle branch block),PAD (peripheral artery disease) ([facility]),PAF (paroxysmal atrial fibrillation) ([facility]) Take 1 Tablet by mouth in the morning and 1 Tablet before bedtime. 180 Tablet 3 08/03/2023 Active Clopidogrel Bisulfate 75 MG Oral Tablet (pLAVix) Take 1 Tablet by mouth in the morning. 90 Tablet 3 08/04/2023 Active Lancing DeviceIndications:Ty pe 2 diabetes mellitus with hemoglobin A1c goal of less than 8.0% ([facility]) Use to check blood sugars once daily E 11.9 1 Each 0 12/04/2023 Active Lancets 33GIndications:Type 2 diabetes mellitus with hemoglobin A1c goal of less than 8.0% ([facility]) Use as directed. Check blood sugars once daily E 11.9 100 Each 1 12/04/2023 Active amLODIPine Besylate 10 MG Oral Tablet (Norvasc) TAKE 1 TABLET DAILY 90 Tablet 3 12/09/2023 Active documented as of this encounter (statuses as of 12/30/2023) Active Problems Problem Noted Date Diagnosed Date [...] as of this encounter (statuses as of 12/30/2023) Resolved Problems Problem Noted Date Diagnosed Date [...] as of this encounter (statuses as of 12/30/2023) Immunizations Name Administration Dates Next Due COVID-19 mRNA, LNP-s, No Pre serve, 2-Dose Series ([employer]) 12/25/2020,12/04/2020 COVID-19, LNP-s, No Preserve , [...] Sign Reading Time Taken Comments Blood Pressure 122/64 12/30/2023 11:03 AM EDT Pulse 84 12/30/2023 11:03 AM EDT Temperature - - Respiratory Rate - - Oxygen Saturation 94% 12/30/2023 11:03 AM EDT Inhaled Oxygen Concentration - - Weight - - Height - - Body Mass Index - - documented in this encounter Functional Status Functional [...] Progress Notes * Vandana Jay CRNP - 12/30/2023 11:00 AM EDT Cardiology Outpatient Visit 12/30/[address] Hoff Past medical history: Severe aortic stenosis s/p TAVR (# 23 mm Lepe Ned S3 Ultra valve), 06/16/[address] [facility] New LBBB Complex CAD, Prox-midRCA with heavily calcified 95% stenosis status post rotational atherectomy+ PCI with x3 overlapping DELORES from mid RCA to ostium-- (2.3sqp28xf, 2.1nbu66yr and 3.7ukg04cb Synergy DELORES), per pre-TAVR cath 05/22/2023 Peripheral arterial disease, 80% RFA stenosis per cardiac catheterization 05/22/2023 S/p shock wave lithotripsy of the left common iliac and left external iliac artery, 06/16/2023 Paroxysmal atrial fibrillation, diagnosed 06/28/2023 per Zio monitor. [id number] score of 4, on reduced dose Eliquis due to age and renal function Hypertension Dyslipidemia Type 2 Diabetes Hypothyroidism HPI 88-year-old male presenting to the cardiology office today in routine follow-up. Last evaluated by the undersigned in July of 2023. Patient carries a history of severe aortic stenosis and underwent TAVR in May of 2023 with findings of a new left bundle branch block postprocedure. He did wear a Zio AT without Salomon arrhythmias or pauses. However, atrial fibrillation was seen. Started on Eliquis but AV patience blocking agentsavoided due to slow resting heart rates. Evaluated by Dr. Rios on 08/11/2023--no pacemaker was recommended at that time and patient status remained stable in September follow-up. In November patient started having multiple nosebleeds lasting about 30 minutes. He is on both Eliquisand Plavix due to atrial fibrillation as well as recent PCI. He is scheduled to see ENT at the end of January. Today the patient presents with his per his usual routine. Notes that he is feeling poorly. Over the last 2 weeks nosebleeds have been getting more significant out of his left nostril. Notes that last week he had an episode of nose bleeding that lasted about 12 hours. Otherwise he will have 2-3 nosebleeds a day lasting 30 minutes each. He has been progressively weak and he is unable to walk. notes that he staggers. No falls. He is extremely dyspneic even with conversation. Unable to do anything around the house including walk to the bathroom. He has dentures, removed dentures in office and gums are white. He has not having chest pain. No lower extremity edema. He states he is compliant with all medications. Current Outpatient Medications Medication Sig Dispense Refill [...] Daily 200 Strip 3 COVID-19 mRNA Vaccine ([employer]) 30 MCG/0.3ML Intramuscular Suspension FreeStyle Lite Test In Vitro Strip (Glucose Blood) USE TWICE A DAY 200 Strip 1 Levothyroxine Sodium 88 MCG Oral Tablet (Levoxyl) Take 1 Tablet by mouth in the morning. (at least 30 min prior to breakfast or other meds). 90 Tablet 3 Insulin Glargine Solostar 100 UNIT/ML Subcutaneous Solution Pen-injector (Lantus SoloStar) INJECT 20 UNITS UNDER THE SKIN ONCE DAILY 30 mL 3 Atorvastatin Calcium 40 MG Oral Tablet (Lipitor) Take 1 Tablet by mouth every afternoon. Do not start before May 23, 2023. (Patient taking differently: Take 1 Tablet by mouth at bedtime.) 90 Tablet 3 hydroCHLOROthiazide 25 MG Oral Tablet (Hydrodiuril) TAKE 1 TABLET DAILY 90 Tablet 3 Trulicity 4.5 MG/0.5ML Subcutaneous Solution Pen-injector (Dulaglutide) INJECT THE CONTENTS OF 1 PEN (4.5 MG) UNDER THE SKIN ONCE A WEEK (Patient taking differently: INJECT THE CONTENTS OF 1 PEN (4.5MG) UNDER THE SKIN ONCE A WEEK. Finish this and do not reorder.) 6 mL 3 Apixaban 2.5 MG Oral Tablet (Eliquis) Take 1 Tablet by mouth in the morning and 1 Tablet before bedtime. 180 Tablet 3 Clopidogrel Bisulfate 75 MG Oral Tablet (pLAVix) Take 1 Tablet by mouth in the morning. 90 Tablet 3 Lancing Device Use to check blood sugars once daily E 11.9 1 Each 0 Lancets 33G Use as directed. Check blood sugars once daily E 11.9 100 Each 1 amLODIPine Besylate 10 MG Oral Tablet (Norvasc) TAKE 1 TABLET DAILY 90 Tablet 3 No current facility-administered medications [...] by Oumar Rojas MD at [facility] COLONOSCOPY W/ LESION REMOVAL, SNARE 11/10/08 villous adenoma, recommend f/u in 1 year COLONOSCOPY, DIAGNOSTIC (RECTUM) 08/12/2013 COLONOSCOPY FLEXIBLE PROXIMAL DIAGNOSTIC performed by Gabriele Ackerman MD at ENDOSCOPY [facility] COLORECTAL CANCER SCREEN; COLON 04/22/2010 done diverticulosis repeat in 3 years CORONARY ANGIOGRAPHY W/LEFT HEART CATH N/A 05/05/2023 CORONARY ANGIOGRAPHY W/LEFT HEART CATH performed by Oumar Rojas MD at [facility] INSERT MULTI-COMP PROSTHESIS, PENIS rectal polyp RADICAL PROSTATE REMOVAL REMOVAL OF APPENDIX REMOVE CATARACT, INSERT LENS PROSTH Left 01/22/2021 LEFT EXTRACAPSULAR CATARACT REMOVAL WITH INTRAOCULAR LENS performed by Julio Cesar Alvarado MD at OR [facility] REMOVE CATARACT, INSERT LENS PROSTH Right 02/05/2021 RIGHT EXTRACAPSULAR CATARACT REMOVAL WITH INTRAOCULAR LENS performed by Julio Cesar Alvarado MD at OR [facility] REPLACE AORTIC VALVE, PERCUTANEOUS FEMORAL Bilateral 06/16/2023 REPLACE AORTIC VALVE, PERCUTANEOUS FEMORAL performed by Oumar Rojas MD at [facility] REPLACE AORTIC VALVE, PERCUTANEOUS FEMORAL Bilateral 06/16/2023 REPLACE AORTIC VALVE, PERCUTANEOUS FEMORAL performed by Felix Malagon MD at [facility] SINGLE LOBECTOMY, LUNG abnormal "spot" . removed [place], [place] Social History Tobacco Use Smoking status: Former Current packs/day: 0.00 Average packs/day: 1 pack/day for 25.0 years (25.0 ttl pk-yrs) Types: Cigarettes Start date: 09/21/1958 Quit date: 09/21/1983 Years since quittin.3 Passive exposure: Past Smokeless tobacco: Never Vaping Use Vaping Use: Never used Substance Use Topics Alcohol use: No Comment: quit Drug use: No Review of patient's allergies indicates: No Known Allergies Review of Systems: See HPI for pertinent positives. All others negative, other than those noted in HPI. Physical Exam BP 122/64 | Pulse 84 | SpO2 94% General: No acute distress. A+Ox3. HEENT: Normocephalic. [...] deficits. PSYCH: Normal. Lab data/imaging study review: Echo 08/28/2023 The examination is adequate to evaluate the referral indication. The LV wall thickness is mildly increased (concentric). The left ventricular wall motion is normal. The qualitative LV ejection fraction is 55-59% (normal). The patient is status post TAVR with Ned type prosthetic valve. The aortic valve prosthesis systolic gradients are normal for this type prosthesis. Mild paravalvular aortic valve prosthesis regurgitation is present. Mild mitral regurgitation is present. Compared to the report of the previous study dated 06/17/2023, there has been a subtle increase in the trans prosthesis continuous-wave Doppler gradients. Mild periprosthetic aortic regurgitation is noted on the presentstudy. Brandono AT (POST TAVR) 06/18/2023 Preliminary Findings Prepared by Sahil Sheth, CCT 07/09/23 Patient had a min HR of [...] was then stented with three overlapping DELORES (2.7jds84ou, 2.2zoo72jd and 3.4fmr48ft Synergy DELORES). Final angiogram showed resolution of stenosis and TIMIIII flow. * Access * R radial artery access aborted because of small caliber. R FREIGHT RATE ANALYST access aborted after microcatheter insertion because of significant FREIGHT RATE ANALYST disease of 80%. L FREIGHT RATE ANALYST access with 6 F sheath. Will be [...] 0.86 cm2 Ao mean P.1 mmHg Impression/Plan: This is an 88 year old male who is being evaluated in the cardiology office for ongoing care/risk management for the below diagnoses. 1. Epistaxis -Significant nosebleeds over the last 2 weeks. Patient very dyspneic and appears pale. Concern for anemia. Recommend evaluation in the [facility] Emergency Department, Patient and declined EMS transport. Recommend CBC to assess degree of anemia. Would also benefit from ENT consultation, epistaxis occur in the left nostril only 1. Severe aortic stenosis 2. S/P TAVR (transcatheter aortic valve replacement) -Severe aortic stenosis s/p TAVR (# 23 mm Lepe Ned S3 Ultra valve), 06/16/[address] Rojas at [facility] -NYHA class 2 1. Has upper and lower dentures-- Antibiotics are needed for all dental work: Amoxicillin 2g- Take 4 capsules 1 hour prior to any dental work 3. On Plavix and Eliquis (due to complex PCI). 4. Repeat echo in the February to reassess TAVR gradients. 3. LBBB (left bundle branch block) -LBBB post TAVR procedure, 06/16/2023 -ZIO AT without Salomon arrhythmias or pauses. PAF as noted below. 4. PAF (paroxysmal atrial fibrillation) ([facility]) -Paroxysmal atrial fibrillation, diagnosed 06/28/2023 per Zio monitor, 5% burden. -[id number]-CEGw score of 4, on reduced dose Eliquis 1. On reduced dose Eliquis 2.5 mg twice daily 5. CAD S/P percutaneous coronary angioplasty -Complex CAD, Prox-midRCA with heavily calcified 95% stenosis status post rotational atherectomy+ PCI with x3 overlapping DELORES from mid RCA to ostium, per pre-TAVR cath 05/22/2023. Stable, no angina. -LDL 35, controlled. 1.On Plavix + Eliquis (not on ASA due to Eliquis use) 2. Continue Atorvastatin 40 mg daily 6. HTN, goal below 150/90 -Controlled. 1. Continue HCTZ 25 mg daily 7. PAD (peripheral artery disease) ([facility]) -Peripheral arterial disease, 80% RFA stenosis per cardiac catheterization 05/22/2023 -S/p shock wave lithotripsy of the left common iliac and left external iliac artery, 06/16/2023 The patient agrees to the above plan and will call with additional questions or concerns. ER with all emergencies advised. Check-out note: Follow up after ED I spent a total of 40 minutes on the date of service in preparation, delivery, and documentation ofthe care provided to Anibal Maurer excluding any time spent in the performance of separately billed services. AMARJIT Grimes, Department of Cardiology This chart was completed in part utilizing [employer] Speech Voice Recognition Software. Grammatical errors, random [...] documented in this encounter Nursing Notes * Hector Schulz RN - 12/30/2023 11:01 AM EDT Examination Room: room 4 Name: Anibal Maurer Date of : (1935). Reason for Visit: for follow up Interim Hospitalization(s): denies Problems/Concerns: very weak; frequent nose bleeds;very short of breath and ISABEL Chest Pain/SOB: denies chest pain see above [facility] Discussed: Yes My [employer] is a way you can talk to [...] Care Team (Late st Contact Info) Description 02/19/2024 10:30 AM EDT Office Visit Otolaryngology [facility] [address] [address] Darya Orellana MD [address] [address] 03/03/2024 1:00 PM EDT Cardiac Studies Cardiac Studies, [facility] [address] [place] [address] 03/04/2024 9:30 AM EDT Office Visit Pharmacy, [place] [address] [place] [address] [place] [address] [place] [address] 05/30/2024 2:40 PM EDT Office Visit Nephrology, [facility] [address] [facility] [place] [address] Rowdy Cee MD [address] [facility] [place] [address] 06/09/2024 7:40 AM EDT Office Visit Family [facility], [place] [address] [place] [address] Andrea Winters MD [address] [place] [address] 08/17/2024 1:30 PM EST Cardiac Studies Cardiac Studies, [facility] [address] [place] [address] 08/17/2024 3:00 PM EST Office Visit Cardiology, [address] [address] Oumar Rojas MD [address] [place] [address] Scheduled Orders Name Type Priority Associated Diagnoses Orde r Schedule EKG COMPLETE (TRACING AND INTERP) EKG Routine Epistaxis Severe aortic stenosis S/P TAVR (transcatheter aortic valve replacement) LBBB (left bundle branch block) PAF (paroxysmal atrial fibrillation) ([facility]) CAD S/P percutaneous coronary angioplasty HTN, goal below 150/90 PAD (peripheral artery disease) ([facility]) Ordered: 12/30/2023 Health Maintenance Due Date Last Done Comments Depression Screening 05/18/2021 05/18/2020 COVID-19 Vaccine (2022-2 4 season) 2023 07/18/2021, 12/25/2020, 12/04/2020 TSH 05/29/2024 05/29/2023, 12/21, 12/02/2022, Additional history exists Zoster Vaccines Completed 06/03/2018, 02/19, 09/29/2007 Influenza Vaccine (FLU shot) Completed , 06/23/2022, 06/06/2020, Additional history exists documented as of this encounter Medical Devices Implanted Type Area Internal Consultant Device Identifier Shelf Expiration Date Model / Serial / Lot Lens Intraoc 19.5 - [id number] - [id number] Implanted:Qty: 1 on 01/22/2021 by Julio Cesar Alvarado MD at OR [facility] Left: Eye BAUSCH [employer] LOMB 08/20/2025 [id number] / [id number] / [id number] Lens Intraoc 21.0 - [id number] - [id number] Implanted:Qty: 1 on 02/05/2021 by Julio Cesar Alvarado MD at OR [facility] Right: Eye BAUSCH & LOMB 08/20/2025 [id number] / [id number] / [id number] Stent Synergy Xd Mr 2.03p68fx - [id number] Implanted:Qty: 1 on 05/22/2023 by Oumar Rojas MD at [facility] [employer] [id number] 06/22/2024 [id number] 0250 / / [id number] Stent Synergy Xd Mr 2.31p55qv - [id number] Implanted:Qty: 1 on 05/22/2023 by Oumar Rojas MD at [facility] [employer] [id number] 01/08/2024 [id number] 4250 / / [id number] Stent Synergy Xd Mr 3.95h03qm - [id number] Implanted:Qty: 1 on 05/22/2023 by Oumar Rojas MD at [facility] [employer] [id number] 02/17/2024 [id number] 2300 / / [id number] Valve Ned 3 Ultra 23mm - [id number] Implanted:Qty: 1 on 06/16/2023 by Oumar Rojas MD at [facility] [employer] [id number] 06/26/2024 [id number] / / documented as of this encounter Visit Diagnoses Diagnosis Severe aortic stenosis- Primary Aortic valve disorders Epistaxis S/P TAVR (transcatheter aortic valve replacement) Heart valve replaced by other means LBBB (left bundle branch block) Other left bundle branch block PAF (paroxysmal atrial fibrillation) ([facility]) Atrial fibrillation CAD S/P percutaneous coronary angioplasty Coronary atherosclerosis of [place] coronary artery HTN, goal below 150/90 PAD (peripheral artery disease) ([facility]) Peripheral vascular disease, unspecified documented in this [...] the patient have Health Care Power of [place] [employer] Sawyer? No Care Teams Technical Training Instructor Relationship Specialty Start Date End Date Andrea Winters MD [address] [place] [address] PCP - General Family Medicine 11/08/18 documented as of this encounter
--- OUTSIDE RECORDS SUMMARY | 2023-12-31 15:43 | External Medical Summary | Summary of Care ---
Author Name Unknown Organization [facility] Address [address] [place] [address] Phone [phone] Care Team Providers Care Ranch Supervisor Name Role Phone Andrea Winters MD Primary Care Provider [phone] Reason for Visit * Reason Comments Follow Up Encounter Details Date Type Department Care Team (Late st Contact Info) Description 12/30/2023 11:00 AM EDT Office Visit Cardiology, [facility] [address] [facility] [place] [address] Vandana Jay CRNP [address] [place] [address] Severe aortic stenosis*; Epistaxis; S/P TAVR (transcatheter aortic valve replacement); LBBB (left bundle branch block); PAF (paroxysmal atrial fibrillation) ([facility]); CAD S/P percutaneous coronary angioplasty; HTN, goal below 150/90; PAD (peripheral artery disease) ([facility]) Allergies No known active allergiesdocumented as of this encounter (statuses as of 12/30/2023) Medications Medication Sig Dispensed Refills Start Date End Date Status ALCOHOL PREP PADS PADSIndications:DM type 2, not at goal ([facility]) use twice daily 200 3 10/21/2006 Active [...] hemoglobin A1c goal of less than 8.0% ([facility]) Dx 11.9 Test twice Daily 200 Strip [...] (left bundle branch block),PAD (peripheral artery disease) ([facility]),PAF (paroxysmal atrial fibrillation) ([facility]) Take 1 Tablet by mouth in the morning and 1 Tablet before bedtime. 180 Tablet 3 08/03/2023 Active Clopidogrel Bisulfate 75 MG Oral Tablet (pLAVix) Take 1 Tablet by mouth in the morning. 90 Tablet 3 08/04/2023 Active Lancing DeviceIndications:Ty pe 2 diabetes mellitus with hemoglobin A1c goal of less than 8.0% ([facility]) Use to check blood sugars once daily E 11.9 1 Each 0 12/04/2023 Active Lancets 33GIndications:Type 2 diabetes mellitus with hemoglobin A1c goal of less than 8.0% ([facility]) Use as directed. Check blood sugars once [...] mRNA, LNP-s, No Pre serve, 2-Dose Series (Biogazelle) 12/25/2020,12/04/2020 COVID-19, LNP-s, No Preserve , Antione-sucrose, [...] AM EDT Cardiology Outpatient Visit 12/30/[address] Hoff Past medical history: Severe aortic stenosis s/p TAVR (# 23 mm Lepe Ned S3 Ultra valve), 06/16/[address] [place] [facility] New LBBB Complex CAD, Prox-midRCA with heavily calcified 95% stenosis status post rotational atherectomy+ PCI with x3 overlapping DELORES from mid RCA to ostium-- (2.4atf62nh, 2.2imm41uc and 3.6kex52yt Synergy DELORES), per pre-TAVR cath 05/22/2023 Peripheral arterial disease, 80% RFA stenosis per cardiac catheterization 05/22/2023 S/p shock wave lithotripsy of the left common iliac and left external iliac artery, 06/16/2023 Paroxysmal atrial fibrillation, diagnosed 06/28/2023 per Zio monitor. [id number] score of 4, on reduced dose Eliquis [...] Daily 200 Strip 3 COVID-19 mRNA Vaccine (Biogazelle) 30 MCG/0.3ML Intramuscular Suspension FreeStyle Lite Test [...] MD at [facility] COLONOSCOPY W/ LESION REMOVAL, SNARE 11/10/08 villous adenoma, recommend f/u in 1 year COLONOSCOPY, DIAGNOSTIC (RECTUM) 08/12/2013 COLONOSCOPY FLEXIBLE PROXIMAL DIAGNOSTIC performed by Gabriele Ackerman MD at ENDOSCOPY [facility] COLORECTAL CANCER SCREEN; COLON 04/22/2010 done diverticulosis repeat in 3 years CORONARY ANGIOGRAPHY W/LEFT HEART CATH N/A 05/05/2023 CORONARY ANGIOGRAPHY W/LEFT HEART CATH performed by Oumar Rojas MD at [facility] INSERT MULTI-COMP PROSTHESIS, PENIS rectal polyp RADICAL PROSTATE REMOVAL REMOVAL OF APPENDIX REMOVE CATARACT, INSERT LENS PROSTH Left 01/22/2021 LEFT EXTRACAPSULAR CATARACT REMOVAL WITH INTRAOCULAR LENS performed by Julio Cesar Alvarado MD at OR [facility] REMOVE CATARACT, INSERT LENS PROSTH Right 02/05/2021 RIGHT EXTRACAPSULAR CATARACT REMOVAL WITH INTRAOCULAR LENS performed by Julio Cesar Alvarado MD at OR [facility] REPLACE AORTIC VALVE, PERCUTANEOUS FEMORAL Bilateral 06/16/2023 REPLACE AORTIC VALVE, PERCUTANEOUS FEMORAL performed by Oumar Rojas MD at [facility] REPLACE AORTIC VALVE, PERCUTANEOUS FEMORAL Bilateral 06/16/2023 REPLACE AORTIC VALVE, PERCUTANEOUS FEMORAL performed by Felix Malagon MD at [facility] SINGLE LOBECTOMY, LUNG abnormal "spot" . removed [place], [place] Social History Tobacco Use Smoking status: [...] was then stented with three overlapping DELORES (2.6ueo08gx, 2.9mvj61cp and 3.1jds09ts Synergy DELORES). Final angiogram showed resolution of stenosis and TIMIIII flow. * Access * R radial artery access aborted because of small caliber. R DATA CLERK access aborted after microcatheter insertion because of significant DATA CLERK disease of 80%. L DATA CLERK access with 6 F sheath. Will be [...] Concern for anemia. Recommend evaluation in the [facility] Emergency Department, Patient and declined EMS transport. Recommend CBC to assess degree of anemia. Would also benefit from ENT consultation, epistaxis occur in the left nostril only 1. Severe aortic stenosis 2. S/P TAVR (transcatheter aortic valve replacement) -Severe aortic stenosis s/p TAVR (# 23 mm Lepe Ned S3 Ultra valve), 06/16/[address] Rojas at [facility] -NYHA class 2 1. Has upper and [...] noted below. 4. PAF (paroxysmal atrial fibrillation) ([facility]) -Paroxysmal atrial fibrillation, diagnosed 06/28/2023 per Zio monitor, 5% burden. -[id number] score of 4, on reduced dose Eliquis [...] mg daily 7. PAD (peripheral artery disease) ([facility]) -Peripheral arterial disease, 80% RFA stenosis per [...] This chart was completed in part utilizing [employer] Speech Voice Recognition Software. Grammatical errors, random [...] [facility] Discussed: Yes My [employer] is a way you can talk to [...] 02/19/2024 10:30 AM EDT Office Visit Otolaryngology [facility] [address] [address] Darya Orellana MD [address] [address] 03/03/2024 1:00 PM EDT Cardiac Studies Cardiac Studies, [facility] [address] [place] [address] 03/04/2024 9:30 AM EDT Office Visit Pharmacy, [place] [address] [place] [address] [place], [facility] [address] [place] [address] 05/30/2024 2:40 PM EDT Office Visit Nephrology, [facility] [address] [facility] [place] [address] Rowdy Cee MD [address] [facility] [place] [address] 06/09/2024 7:40 AM EDT Office Visit Family [facility], [place] [address] [place] [address] Andrea Winters MD [address] [place] [address] 08/17/2024 1:30 PM EST Cardiac Studies Cardiac Studies, [facility] [address] [place] [address] 08/17/2024 3:00 PM EST Office Visit Cardiology, [address] [address] Oumar Rojas MD [address] [place] [address] Scheduled Orders Name Type Priority Associated Diagnoses Orde r Schedule EKG COMPLETE (TRACING AND INTERP) EKG Routine Epistaxis Severe aortic stenosis S/P TAVR (transcatheter aortic valve replacement) LBBB (left bundle branch block) PAF (paroxysmal atrial fibrillation) ([facility]) CAD S/P percutaneous coronary angioplasty HTN, goal below 150/90 PAD (peripheral artery disease) ([facility]) Ordered: 12/30/2023 Health Maintenance Due Date Last Done Comments Depression Screening 05/18/2021 05/18/2020 COVID-19 Vaccine (2022-2 4 season) 2023 07/18/2021, 12/25/2020, 12/04/2020 TSH 05/29/2024 05/29/2023, 12/21, 12/02/2022, Additional history exists Zoster Vaccines Completed 06/03/2018, 02/19, 09/29/2007 Influenza Vaccine (FLU shot) Completed , 06/23/2022, 06/06/2020, Additional history exists documented as of this encounter Medical Devices Implanted Type Area Agriculture Instructor Device Identifier Shelf Expiration Date Model / Serial / Lot Lens Intraoc 19.5 - [id number] - [id number] Implanted:Qty: 1 on 01/22/2021 by Julio Cesar Alvarado MD at OR [facility] Left: Eye BAUSCH & LOMB 08/20/2025 [id number] / [id number] / [id number] Lens Intraoc 21.0 - [id number] - [id number] Implanted:Qty: 1 on 02/05/2021 by Julio Cesar Alvarado MD at OR [facility] Right: Eye BAUSCH & LOMB 08/20/2025 [id number] / [id number] / [id number] Stent Synergy Xd Mr 2.21w96do - [id number] Implanted:Qty: 1 on 05/22/2023 by Oumar Rojas MD at [facility] Play [employer] [id number] 06/22/2024 [id number] 0250 / / [id number] Stent Synergy Xd Mr 2.33i83fs - [id number] Implanted:Qty: 1 on 05/22/2023 by Oumar Rojas MD at [facility] [employer] [id number] 01/08/2024 [id number] 4250 / / [id number] Stent Synergy Xd Mr 3.61n51es - [id number] Implanted:Qty: 1 on 05/22/2023 by Omuar Rojas MD at [facility] Play [employer] [id number] 02/17/2024 [id number] 2300 / / [id number] Valve Ned 3 Ultra 23mm - [id number] Implanted:Qty: 1 on 06/16/2023 by Oumar Rojas MD at [facility] [employer] [id number] 06/26/2024 [id number] / / documented as of this encounter Visit Diagnoses Diagnosis Severe aortic stenosis- Primary Aortic valve disorders Epistaxis S/P TAVR (transcatheter aortic valve replacement) Heart valve replaced by other means LBBB (left bundle branch block) Other left bundle branch block PAF (paroxysmal atrial fibrillation) ([facility]) Atrial fibrillation CAD S/P percutaneous coronary angioplasty Coronary atherosclerosis of [place] coronary artery HTN, goal below 150/90 PAD (peripheral artery disease) ([facility]) Peripheral vascular disease, unspecified documented in this [...] the patient have Health Care Power of Geriatric Assistant? No Care Teams Ranch Supervisor Relationship Specialty Start Date End Date Andrea Winters MD [address] [place] [address] PCP - General Family Medicine 11/08/18 documented as of this encounter
--- NOTE | 2024-01-01 07:40 | Discharge Summary ---
Date of Service December 29, 2023 Admission HPI Per Admitting Provider This is a n 88 yo M with PMHX of CAD, s/p TAVR in 06/16/23, PAD, paroxysmal atrial fibrillation on eliquis, HTN, HLD, who presents from cardiology office this morning after being found to have EKG changes in Lead 1 and AVL with T wave changes. Pt has been having nose bleeds since December 12, very heavy at times and can last for about 30 minutes. He hasn't missed any of his anticoagulation medications - is on both plavix and eliquis (reduced dose for renal implications), and last dose of these meds was this morning. His last nose bleed was earlier today which require him holding and pinching his nose for abot 30 minutes again. No bleeding since arrival to the ER. PT denies any chest pain, heaviness or complaints. His at bedside is worried, and provides contradictory information compared to the patient, who may tend to downplay his symptoms. She states he has been having shortness of breath on exertion, needing to sit down and catch his breath after attempting to get dressed in the last 3 days, as well as looking "wobbly" with ambulation. Prior to this he has no issues with needing ambulatory device or issues with fatigue on exertional activites. Denies any acute falls or injuries to self. notes glucose has been elevated over the past week or so. He was recently taken off metformin completely due to weight loss around middle of November 2023, and instead was kept on Trulicity weekly(Tuesdays) and lantus 20 U QAM. His appetite has not changed. concerned about upward trending glucose and does not have appt until the end of next Thursday scheduled. Admission Exam Per Admitting Provider Physical Exam: General: awake, alert, no apparent distress, elderly white male, BMI of 23.3 Head: Normocephalic, atraumatic ENT: PERRL, EOMI, no pharyngeal exudate, mucous membranes moist Chest: Clear to auscultation, on room air, no adventitious breath sounds Cardiac: Regular rate and rhythm, no murmur, no JVD, normal peripheral pulses, good capillary refill Abdominal: NABS x 4 quadrants, soft, nondistended, nontender to palpation, no rebound or guarding Extremities: Normal inspection, no peripheral edema or erythema, calfs nontender to palpation Psych: Normal mood and affect Neuro: AAO x 3, strength intact bilaterally and rated 5/5, no motor deficits, speech is clear, no peripheral sensory deficits Principal Diagnosis Acute blood loss anemia due to epistaxis, CAD status post right coronary artery stent placement and status post TAVR, Eliquis is on hold Discharge Exam Lying in bed without any acute distress Constitutional + ill appearing and average body habitus Eyes PERRL, conjunctivae normal, anicteric sclerae ENMT external ear and nose normal, oropharynx normal Neck trachea midline, no thyromegaly Respiratory no respiratory distress Auscultation: lungs clear to auscultation bilaterally and + crackles (Minimal crackles at the bases) Cardiovascular Rate/Rhythm: regular rate and regular rhythm; not tachycardic Heart Sounds: normal S1, normal S2 and + murmur Extremities: no edema Gastrointestinal (Abdomen) Inspection/Auscultation: normal bowel sounds; abdomen not distended Percussion/Palpation: abdomen soft; abdomen nontender Neurologic normal touch/pain/proprioception and moves all extremities; no focal motor deficits Psychiatric A+Ox3, euthymic affect Lymphatic no cervical or axillary lymphadenopathy Discharge Data Allergies Allergy/AdvReac Type Severity Reaction Status Date / Time No Known Allergies Allergy Verified 12/30/23 14:11 Consultations 12/30/23 14:20 ED Decision to Admit Stat 12/30/23 14:31 Consult Cardiology Routine 12/30/23 14:44 Consult Otolaryngology (Head and Neck) Routine Hospital Course (1) Anemia: (2) Hypertension: (3) Hypothyroidism: (4) Diabetes mellitus type 2, controlled: (5) Dyslipidemia: (6) CKD (chronic kidney disease), stage III: (7) Cerebrovascular disease: (8) S/P TAVR (transcatheter aortic valve replacement): 88 yo M with multiple complex comorbidities listed below, epistaxis on anticoagulation and new elevated troponin and dyspnea on exertion Acute blood loss anemia due to epistaxis - Pt is hgb of 9 today, previously on 12/02/23 hgb was 13.6 - Will hold eliquis and plavix - last took these meds this morning. Discussed with cards - Blood consented personally - if in case needs this overnight. Currently no need for transfusion. - ENT consult for epistasix, had appt but was at end of January - appreciate recs - Afnely hahnn -Appreciate ENT input and recommendation-will need to be follow-up in 2 weeks in ENTs office -No more epistaxis since admission -Hemoglobin is stable at 8.3 S/p TAVR - #23mm Lepe Ned S3 Ultra valve), 06/16/[address] Rojas at [facility], New LBBB at that time -- again seen on EKG today. - At that time he did wear a Zio AT without Salomon arrhythmias or pauses. However, atrial fibrillation was seen. Started on Eliquis but AV patience blocking agents avoided due to slow resting heart rates. Evaluated by Dr. Rios on 08/11/2023--no pacemaker was recommended at that time and patient status remained stable in September follow-up. - Last echo from 08/2023 showing EF normal, TAVR gradients stable, mild paravalvular aortic valve prosthesis regurg present - Follows with [facility] as outpatient Dr. Hoff - Outpatient cardiology referred pt here for further eval due to nose bleeds and abdnomal EKG today concerning with new T-wave inversions in leads 1 and aVL. - Trop 127 --> 101.3, trend x 1 more set - Also noted is pt appears dyspneic on exertion. Sats of mid 90s on RA after walking to the bathroom. We can maintain oxygen with humidification as needed for exertional dyspnea. -Appreciate cardiology input and recommendation -No cardiac symptoms at this time -Will restart Plavix but no Coumadin on discharge -Will have cardiology follow-up in about 4 weeks Complex CAD - Prox-midRCA with heavily calcified 95% stenosis status post rotational atherectomy+ PCI with x3 overlapping DELORES from mid RCA to ostium-- (2.0rxm16wi, 2.8odw43ef and 3.1thm05pr Synergy DELORES), per pre-TAVR cath 05/22/2023 - Holding plavix - Continue statin therapy Peripheral arterial disease, 80% RFA stenosis per cardiac catheterization 05/22/2023 - S/p shock wave lithotripsy of the left common iliac and left external iliac artery, 06/16/2023 - Cont statin therapy Paroxysmal atrial fibrillation, diagnosed 06/28/2023 per Zio monitor. - [id number] score of 4, on reduced dose Eliquis due to age and renal function - Holding eliquis as above -No Eliquis for now Hypertension Dyslipidemia - Home regimen:amlodipine, HCTZ DM II - ISS with accuchecks achs - Last A1C 8.4 on 12/02/23 -- will recheck with am labs since off Metformin mid November with uptrending glucoses. Was taken off metformin due to weight loss - consider ISS at home if not a candidate for metformin upon discharge. Hold Trulicity for now, last dose was Thursday. - Hyperglycemia with glucose of 375 upon admission , will trend -Continue with the current medications Hypothyroidism - Cont levothyroxine CKD stage III - Baseline Cr 1.4-1.5, upon admission is 1.72, BUN 30 - May likely be due to demand ischemia, volume depletion as above DVT ppx: teds, scds Lines: 1 PIV FEN/GI: Allow DM heart healthy diet for now CODE: DNR/DNI Remains medically stable and has had physical therapy recommended home He wants to go home and the will take him on this afternoon Total Time Total Time Spent Total Time Spent (In Minutes): 35 minutes Discharge Plan Discharge Items Patient Disposition: Home - Self-Care Reason For Visit: ANEMIA, EPISTAXIS, EKG CHANGES Discharge Diagnosis: Acute blood loss anemia due to epistaxis, CAD status post right coronary artery stent placement and status post TAVR, Eliquis is on hold Condition on Discharge: Fair Activity: Resume your previous activity Non-emergency contact: Primary Care Provider Call non-emergency contact if: you have any medication questions and your symptoms worsen Follow-up/Referrals: Buck Welch DO [Cofounder] - (The Cardiology office will contact you for a follow up appointment.) Andrea Winters MD [Primary Care Provider] - (Date & Time 01/05/2024 11:20 AM Provider Andrea Winters MD Department [facility] ) Darya Orellana MD [Surgeon] - (Date & Time 02/19/2024 10:30 AM Provider Darya Orellana MD Department Otolaryngology [facility] ) Diet: Carb Consistent or DM2 and Heart Healthy Fluids: 1500ml (6 cups) Addtl Attending Provider Instructions: Please take precautions to avoid falls Take your medications as advised Your Eliquis has been on hold until you have been seen by the engine lathe operator Please keep follow-up appointments with the healthcare providers You need to see the ENT specialist in 2 weeks and the number is [phone] Pending Studies at Discharge: No Stand-Alone Forms: My [facility], Smoking Cessation Medications and DC Order Prescriptions: New mupirocin 2 % ointment 1 applic topical BID Qty: 15 0RF Afrin (oxymetazoline) 0.05 % mist 2 spray intranasal BID 3 Days Qty: 15 0RF Saline Nasal 0.65 % aerosol,spray 1 spray intranasal QID PRN (Reason: dry nasal passages) Qty: 44 0RF Continued amlodipine 10 mg Tablet 10 mg PO DAILY cholecalciferol (vitamin D3) [Vitamin D3] 1,000 unit Capsule 1,000 unit PO DAILY atorvastatin 40 mg tablet 40 mg PO QPM clopidogrel 75 mg tablet 75 mg PO QAM levothyroxine [Synthroid] 88 mcg tablet 88 mcg PO DAILYBB hydrochlorothiazide 25 mg tablet 25 mg PO DAILY insulin glargine [Lantus Solostar U-100 Insulin] 100 unit/mL (3 mL) insulin pen 20 unit SUBCUT DAILY Trulicity 4.5 mg/0.5 mL pen injector 4.5 mg SUBCUT WK Rx Instructions: PER [facility] "FINISH THIS ORDER AND DO NOT REORDER". Tuesdays Discontinued Eliquis 2.5 mg tablet 2.5 mg PO BID Discharge Orders: Discharge Order (Routine); Ordered 12/31/23 Ordered By: Phoebe Arenas/Other Patient Handouts: Mupirocin Topical Ointment, Oxymetazoline Nasal [place] Admission Data Admit Date/Time: 12/30/23 16:16 Attending Provider: Phoebe Rojas Admit Provider: Germain Palacios Primary Care Provider: Andrea Winters Other Providers: Buck Welch; Germain Palacios; Abdiel Dey Other Interventions: Discharge Summary Assessment (RN) Last Done: 12/31/23 14:55
--- NOTE | 2024-01-01 09:48 | Electrocardiogram Report ---
Test Reason : Blood Pressure : / mmHG Vent. Rate : 076 BPM Atrial Rate : 076 BPM P-R Int : 146 ms QRS Dur : 088 ms QT Int : 362 ms P-R-T Axes : 006 -30 119 degrees QTc Int : 407 ms Sinus rhythm with Premature atrial complexes Left axis deviation Left ventricular hypertrophy with repolarization abnormality ( R in aVL ) Possible Anterior infarct Abnormal ECG When compared with ECG of 23-JUL-2018 10:07, Minimal criteria for Inferior infarct are no longer Present T wave inversion now evident in Lateral leads Confirmed by Mac Briceno ([id number]) on 01/01/2024 9:48:03 AM Referred By: REFERRED SELF Confirmed By:Mac Briceno
--- NOTE | 2024-01-01 21:31 | Electrocardiogram Report ---
Test Reason : Blood Pressure : / mmHG Vent. Rate : 062 BPM Atrial Rate : 062 BPM P-R Int : 158 ms QRS Dur : 100 ms QT Int : 390 ms P-R-T Axes : 004 -19 099 degrees QTc Int : 395 ms Normal sinus rhythm Inferior infarct , age undetermined Cannot rule out Anterior infarct (cited on or before 23-JUL-2018) Abnormal ECG When compared with ECG of 30-DEC-2023 12:24, Premature atrial complexes are no longer Present Inferior infarct is now Present Confirmed by Mac Briceno ([id number]) on 01/01/2024 9:31:32 PM Referred By: REFERRED SELF Confirmed By:Mac Briceno
== END 2023-12-31 15:33 | disposition home or self-care (01) | DRG 812 ==
LOC: ED 11:32 → EDINP 16:16 → SUATTDRO 16:16 → 2N 17:48